=== PATIENT | female | born 1965 | race Caucasian/White ===

== ENCOUNTER 2021-06-21 11:15 | Outpatient (RCR) | payer MEDICARE, SELFPAY ==
[2021-06-02 15:32] VITALS: BMI 33.5
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
--- NOTE | 2021-06-03 14:13 | PC.NURSE ---
Case opened in treatment team
--- NOTE | 2021-06-07 11:25 | HO.PHPPROGNO ---
Subjective Subjective Date of Service: 06/07/21 Reason For Visit: F33.2 Guardianship: No Medical Problems Affecting Mental Status: No Interim History: Continues feeling cloudy . Says depression still present but is a little better . Denies any SI, no safety concern. Wants TMS 'right away . Medication Compliance: Yes Side effects from medications: No Attending Groups: Yes Review of Systems Acute medical concerns: No Medical Review of Systems: unchanged Review of Systems Review of Systems Yes all other systems are reviewed and are negative Constitutional: Reports no additional constitutional complaints Mental Status Exam Mental Status Exam Narrative: Well dressed, well nourished. No tics/tremors, no abnormal movements. Fully attentive during encounter. Continues with concrete, clouded sensorium, which she has attributed to post Covid symptoms. Patient Appearance: Appropriate Patient Orientation: Person, Place, Time and Situation Level of Consciousness: Awake and Appropriate Patient Behavior: Cooperative Mood Description: Depressed Affect Description: Depressed and Anxious Patient Cognition Impaired: No Ability to Follow Directions: Good Speech Pattern: Clear and Appropriate Memory Description: Intact Hallucinations: None Delusions: Not Present Thought Process: Intact Thought Content: positive for [place] and positive for Slowed Thinking (describes as cloudy .) Depressive Symptoms: Increased Anxiety, Diff. Making Decisions, Loss of Int. in Activity, Isolating-Friends/Family, Unhappiness and Difficulty Concentrating Judgement: Fair Diagnostics Vital Signs (24Hr): BMI result Body Mass Index 33.5 Assessment & Plan Assessment & Plan (1) Major depressive disorder, recurrent severe without psychotic features: Status: Acute Code(s): F33.2 - Major depressive disorder, recurrent severe without psychotic features Assessment and Plan: Clients continues with depressed, anxious mood. Reports that she feels she has had some improvement with depression symptoms, although it is still present. Denies SI. Discussed changing effexor from am to evening. She was agreeable. Discussed adding provigil. She was not interested in adding the medication at this time. She says she has several medical appointments upcoming, including a biopsy result (cervical), and a CT scan of her abdomen, due to digestive issues. She would prefer to wait until after these are complete prior to adding provigil, or making any other medication changes, including dose changes. She reports that she would like to begin TMS soon. We discussed a plan for any increased depression as she awaits start of TMS. If she begins to develop worsening depression / SI, she agrees to call crisis / come to [facility], for possible admit and posible ECT. She understands and agrees to this plan. (2) DIGNA (generalized anxiety disorder): Status: Acute Code(s): F41.1 - Generalized anxiety disorder Plan 1. Follow PHP plan of care. 2. Switch effexor from am to evening dose. 3. Follow-up as per protocol. Patient educated on: diagnosis, medication risk/benefits, ECT and TMS Informed Consent: understands Reason for contiued partial hosp. stay Substantial Risk for: harm to self, inability to function and med/psych decompensation Certification I certify that partial hospital treatment is medically necessary due to the symptoms and problems resulting from the patient's mental illness and the failure to treat the patient at the partial hospital level of care would likely result in the patient requiring inpatient psychiatric care which could not be prevented at a less intensive level of care. I spent minutes with the patient and/or on the patient floor today, greater than?50% of which was spent counseling/coordinating care. Discharge Plan Discharge Attending provider: Laith Valdes Primary Care Provider: Jaun Eason Medications: No Action carvedilol 6.25 mg Tablet 6.25 mg PO BID 0RF Rx Instructions: must administer with a meal/food venlafaxine [Effexor XR] 150 mg Capsule,Extended Release 24hr 150 mg PO DAILY 0RF spironolactone 25 mg Tablet 25 mg PO DAILY 0RF digoxin 125 mcg (0.125 mg) Tablet 125 mcg PO DAILY 0RF cholecalciferol (vitamin D3) [Vitamin D3] 50 mcg (2,000 unit) Capsule 50 mcg PO DAILY 0RF Entresto 49-51 mg Tablet 1 tab PO BID 0RF aspirin 81 mg Capsule 81 mg PO DAILY 0RF Referrals: Jaun Eason DO, MD [Primary Care Provider] - 1 Week Telehealth Telehealth Location of provider rendering services: practice address Location of patient: address on file Patient Identification confirmed using: Name, : Yes Telehealth method: video Patient verbally consented to treatment: Yes Patient verbally consented to billing insurance company: Yes Patient informed of any privacy concerns related to visit: Yes Time spent with patient (mins): 15
--- NOTE | 2021-06-07 14:15 | PC.NURSE ---
I spoke to Walt who stated she will not be in the program tomorrow as she has an appointment with her doctor to go over test results. Plans on returning to the program on Monday.
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
--- NOTE | 2021-06-21 14:20 | PC.NURSE ---
Notified Jolene from [facility] regarding Walt's discharge from the [facility] program to coordinate possible TMS treatment with patient.
--- NOTE | 2021-06-21 14:27 | PC.NURSE ---
Patient scheduled to discharge from the program today. Denied SI or thoughts to harm herself. Feels ok about discharge . Reviewed patient medications with patient, patient reports taking them as prescribed.
--- NOTE | 2021-06-21 14:32 | HO.PHPPROGNO ---
Subjective Subjective Date of Service: 06/21/21 Reason For Visit: F33.2 Guardianship: No Medical Problems Affecting Mental Status: No Interim History: Reports symptoms of depression are lessening, feels overall improved. No SI, no safety concern. Reports feeling sad about leaving program, as she is finding PHP very helpful. Looking forward to meeting with a [facility] clinic. Medication Compliance: Yes Side effects from medications: No Attending Groups: Yes Review of Systems Acute medical concerns: No Medical Review of Systems: unchanged Review of Systems Review of Systems Yes all other systems are reviewed and are negative Constitutional: Reports no additional constitutional complaints Mental Status Exam Mental Status Exam Patient Appearance: Well Grooomed and Appropriate Patient Orientation: Person, Place, Time and Situation Level of Consciousness: Awake, Appropriate and Alert Patient Behavior: Appropriate, Cooperative and Good Eye Contact Mood Description: Appropriate, Depressed and Anxious Affect Description: Appropriate and Anxious Patient Cognition Impaired: No Ability to Follow Directions: Good Speech Pattern: Clear, Appropriate and Coherent Memory Description: Normal for Patient Hallucinations: None Delusions: Not Present Thought Process: Rumination (focused on GI health and upcoming endoscopy and CT ) Thought Content: positive for Intact (grossly intact), positive for [place] and positive for Perseveration Depressive Symptoms: Increased Anxiety and Diff. Making Decisions Judgement: Good Diagnostics Vital Signs (24Hr): BMI result Body Mass Index 33.5 Assessment & Plan Assessment & Plan (1) DIGNA (generalized anxiety disorder): Status: Acute Code(s): F41.1 - Generalized anxiety disorder Assessment and Plan: Client reports overall improvement with depressive symptoms. Questions whether not she should continue with antidepressant at current dose. Discussed medication, this provider recommended she continue with medication as she appears to have lessened depressive symptoms because of this. Continues with some anxiety regarding upcoming GI testing including a CT scan and endoscopy. Continues to ruminate on this topic. (2) Major depressive disorder, recurrent severe without psychotic features: Status: Acute Code(s): F33.2 - Major depressive disorder, recurrent severe without psychotic features Assessment and Plan: Overall reports less depressive symptoms. Denies any SI, no thought of harm to self or others. No safety concerns at this time. Reports she is waiting to hear from [facility] regarding TMS, as she would like to pursue this. She reports that overall the PHP program has been very helpful to her, and that she will miss it. Plan 1. Client appears stable for discharge from [facility] at this time. 2. Follow-up with outpatient providers going forward. 3. Client plans to follow up with providers here at [facility] regarding TMS, as she is interested in this. Patient educated on: diagnosis, medication risk/benefits, TMS and therapeutic strategies Reason for contiued partial hosp. stay Substantial Risk for: stable for discharge Certification I certify that partial hospital treatment is medically necessary due to the symptoms and problems resulting from the patient's mental illness and the failure to treat the patient at the partial hospital level of care would likely result in the patient requiring inpatient psychiatric care which could not be prevented at a less intensive level of care. I spent __20____ minutes with the patient and/or on the patient floor today, greater than?50% of which was spent counseling/coordinating care. Discharge Plan Discharge Attending provider: Laith Valdes Primary Care Provider: Jaun Eason Medications: No Action carvedilol 6.25 mg Tablet 6.25 mg PO BID 0RF Rx Instructions: must administer with a meal/food venlafaxine [Effexor XR] 150 mg Capsule,Extended Release 24hr 150 mg PO DAILY 0RF spironolactone 25 mg Tablet 25 mg PO DAILY 0RF digoxin 125 mcg (0.125 mg) Tablet 125 mcg PO DAILY 0RF cholecalciferol (vitamin D3) [Vitamin D3] 50 mcg (2,000 unit) Capsule 50 mcg PO DAILY 0RF Entresto 49-51 mg Tablet 1 tab PO BID 0RF aspirin 81 mg Capsule 81 mg PO DAILY 0RF Referrals: Jaun Eason DO, MD [Primary Care Provider] - 1 Week Stand Alone Forms: Patient Portal Discharge page Telehealth Telehealth Location of provider rendering services: practice address Location of patient: address on file Patient Identification confirmed using: Name, : Yes Telehealth method: video Patient verbally consented to treatment: Yes Patient verbally consented to billing insurance company: Yes Patient informed of any privacy concerns related to visit: Yes Time spent with patient (mins): 20
== END 2021-06-21 23:59 | disposition home or self-care (01) ==
LOC: HO.PHPA 11:15
PROVIDERS: PCP Internal Medicine; Referring Provider Psychiatry & Neurology Psychiatry; Visit Provider Psychiatry & Neurology Psychiatry
DX: F33.2 Major depressive disorder, recurrent severe without psychotic features (principal); F41.1 Generalized anxiety disorder; Z79.899 Other long term (current) drug therapy
CPT/HCPCS: 90791; 90853

== ENCOUNTER → 2022-10-03 17:16 | Outpatient (RCR) | payer MEDICARE, SELFPAY ==
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
--- NOTE | 2021-06-30 16:45 | HO.TMSDAILY2 ---
TMS Daily Progress Note Daily TMS Progress Note Date of Service: 06/30/21 Week #: 1 (day one. mapping.) Treatment #(05-23): #1 PHQ-9 Pre-Treatment (05-20): unknown PHQ-9 Most Recent (05-20): unknown Reviewed: TMS Mapping/Re-mapping completed Verification: pt remains a candidate for this treatment Assessment and Plan (1) Major depressive disorder, recurrent severe without psychotic features: Status: Acute pt was calm and cooperative throughout the session. she recited her medications and no contraindications were noted. she denied having any metal in her head/neck area. she did not express any safety concerns. she appeared to tolerate the procedure adequately and plans to return tomorrow. Plan mapping and treatment #1 completed today. no notable adverse events aside from minor discomfort during pulse trains, which appeared to attenuate with time.
--- NOTE | 2021-06-30 21:33 | HO.TMSDAILY2 ---
TMS Daily Progress Note Daily TMS Progress Note Date of Service: 06/30/21 Week #: 1 Treatment #(05-23): #1 PHQ-9 Pre-Treatment (05-20): unknown PHQ-9 Most Recent (05-20): unknown Reviewed: TMS Tech Note Reviewed Verification: I have reviewed the TMS Outside Residential Sales Professional Note and agree with the contents. The patient remains a candidate to continue TMS treatment per protocol. Assessment and Plan (1) Major depressive disorder, recurrent severe without psychotic features: Status: Acute Plan initial mapping completed
--- NOTE | 2021-07-02 17:22 | P.PNPS_ITS ---
TMS Daily Progress Note Daily TMS Progress Note Date of Service: 07/01/21 Week #: 1 Treatment #(05-23): 2 PHQ-9 Pre-Treatment (05-20): 21 PHQ-9 Most Recent (05-20): 21 Reviewed: TMS Tech Note Reviewed Verification: I have reviewed the TMS Workers Compensation Claims Analyst Note and agree with the contents. The patient remains a candidate to continue TMS treatment per protocol. Pt hopeful regarding tx Assessment and Plan (1) Major depressive disorder, recurrent severe without psychotic features: Status: Acute Plan continue tx plan inc mt% as tolerated
--- NOTE | 2021-07-02 21:55 | HO.TMSDAILY2 ---
TMS Daily Progress Note Daily TMS Progress Note Date of Service: 07/02/21 Week #: 1 Treatment #(05-23): 3 PHQ-9 Pre-Treatment (05-20): 21 PHQ-9 Most Recent (05-20): 21 Reviewed: TMS Tech Note Reviewed Verification: I have reviewed the TMS Melter Supervisor Oxygen Furnace Note and agree with the contents. The patient remains a candidate to continue TMS treatment per protocol. Assessment and Plan (1) Major depressive disorder, recurrent severe without psychotic features: Status: Acute Plan tolerating initial tx
--- NOTE | 2021-07-05 21:58 | HO.TMSDAILY2 ---
TMS Daily Progress Note Daily TMS Progress Note Date of Service: 07/05/21 Week #: 1 Treatment #(05-23): 4 PHQ-9 Pre-Treatment (05-20): 21 PHQ-9 Most Recent (05-20): 21 Reviewed: TMS Tech Note Reviewed Verification: I have reviewed the TMS Battery Test Engineer Note and agree with the contents. The patient remains a candidate to continue TMS treatment per protocol. Assessment and Plan (1) Major depressive disorder, recurrent severe without psychotic features: Status: Acute Plan some ? elevated mood will review follow monitor
--- NOTE | 2021-07-06 17:55 | P.PNPS_ITS ---
TMS Daily Progress Note Daily TMS Progress Note Date of Service: 07/06/21 Week #: 1 Treatment #(05-23): 5 PHQ-9 Pre-Treatment (05-20): 21 PHQ-9 Most Recent (05-20): 21 Reviewed: TMS Tech Note Reviewed Verification: I have reviewed the TMS Quality Systems Technician Note and agree with the contents. The patient remains a candidate to continue TMS treatment per protocol. Assessment and Plan (1) Major depressive disorder, recurrent severe without psychotic features: Status: Acute Plan Patient seems improving more verbal choi affect monitor for overstimulation
--- NOTE | 2021-07-07 10:57 | P.PNPS_ITS ---
TMS Daily Progress Note Daily TMS Progress Note Date of Service: 07/08/21 Week #: 2 Treatment #(05-23): 6 PHQ-9 Pre-Treatment (05-20): 21 PHQ-9 Most Recent (05-20): 21 Reviewed: TMS Tech Note Reviewed Verification: I have reviewed the TMS Mineral Industry Teacher Note and agree with the contents. The patient remains a candidate to continue TMS treatment per protocol.
--- NOTE | 2021-07-08 22:48 | HO.TMSDAILY2 ---
TMS Daily Progress Note Daily TMS Progress Note Date of Service: 07/08/21 Week #: 2 Treatment #(05-23): 7 PHQ-9 Pre-Treatment (05-20): 21 PHQ-9 Most Recent (05-20): 21 Reviewed: TMS Tech Note Reviewed Verification: I have reviewed the TMS Railway Equipment Operator Note and agree with the contents. The patient remains a candidate to continue TMS treatment per protocol.
--- NOTE | 2021-07-09 20:15 | HO.TMSDAILY2 ---
TMS Daily Progress Note Daily TMS Progress Note Date of Service: 07/09/21 Week #: 2 Treatment #(05-23): 8 PHQ-9 Pre-Treatment (05-20): 21 PHQ-9 Most Recent (05-20): 21 Reviewed: TMS Tech Note Reviewed Verification: I have reviewed the TMS Livestock Dealer Note and agree with the contents. The patient remains a candidate to continue TMS treatment per protocol. Assessment and Plan (1) Major depressive disorder, recurrent severe without psychotic features: Status: Acute Plan pt improved continue plan of care
--- NOTE | 2021-07-12 21:56 | P.PNPS_ITS ---
TMS Daily Progress Note Daily TMS Progress Note Date of Service: 07/12/21 Week #: 2 Treatment #(05-23): 9 PHQ-9 Pre-Treatment (05-20): 21 PHQ-9 Most Recent (05-20): 21 Reviewed: TMS Tech Note Reviewed Verification: I have reviewed the TMS Production Support Developer Note and agree with the contents. The patient remains a candidate to continue TMS treatment per protocol.
--- NOTE | 2021-07-15 18:04 | HO.TMSDAILY2 ---
TMS Daily Progress Note Daily TMS Progress Note Date of Service: 07/14/21 Week #: 3 Treatment #(05-23): 11 PHQ-9 Pre-Treatment (05-20): 21 PHQ-9 Most Recent (05-20): 21 Reviewed: TMS Tech Note Reviewed Verification: I have reviewed the TMS Veneer Splicer Note and agree with the contents. The patient remains a candidate to continue TMS treatment per protocol.
--- NOTE | 2021-07-15 20:02 | P.PNPS_ITS ---
TMS Daily Progress Note Daily TMS Progress Note Date of Service: 07/13/21 Week #: 2 Treatment #(05-23): 10 PHQ-9 Pre-Treatment (05-20): 21 PHQ-9 Most Recent (05-20): 21 Reviewed: TMS Tech Note Reviewed Verification: I have reviewed the TMS Manager Technical Training Note and agree with the contents. The patient remains a candidate to continue TMS treatment per protocol. case reviewed with tech ? choi affect
--- NOTE | 2021-07-20 20:06 | P.PNPS_ITS ---
TMS Daily Progress Note Daily TMS Progress Note Date of Service: 07/19/21 Week #: 3 Treatment #(05-23): 12 PHQ-9 Pre-Treatment (05-20): 21 PHQ-9 Most Recent (05-20): 21 Reviewed: TMS Tech Note Reviewed (late entry 07/19/21) Verification: I have reviewed the TMS Mental Health Counselor Note and agree with the contents. The patient remains a candidate to continue TMS treatment per protocol.
--- NOTE | 2021-07-21 09:03 | P.PNPS_ITS ---
TMS Daily Progress Note Daily TMS Progress Note Date of Service: 07/20/21 Week #: 3 Treatment #(05-23): 13 PHQ-9 Pre-Treatment (05-20): 21 PHQ-9 Most Recent (05-20): 21 Reviewed: TMS Tech Note Reviewed Verification: I have reviewed the TMS Steam Shovel Operating Engineer Note and agree with the contents. The patient remains a candidate to continue TMS treatment per protocol. Assessment and Plan (1) Major depressive disorder, recurrent severe without psychotic features: Status: Acute Plan pt improved has akathesia pt seen much choi affect mood pleasant some anxiety sleep good akathesia most c/w effexor [address] lucas office they will lower effexor to 75 mg does not seem tms s/e or andrew
--- NOTE | 2021-07-23 15:56 | HO.TMSDAILY2 ---
TMS Daily Progress Note Daily TMS Progress Note Date of Service: 07/22/21 Week #: 3 (15) Treatment #(05-23): 15 PHQ-9 Pre-Treatment (05-20): 21 PHQ-9 Most Recent (05-20): 21 Reviewed: TMS Tech Note Reviewed Verification: I have reviewed the TMS Harness Fitter Note and agree with the contents. The patient remains a candidate to continue TMS treatment per protocol. Assessment and Plan (1) Major depressive disorder, recurrent severe without psychotic features: Status: Acute Plan spoke with daughter who stated pt did best on 150 referred back to her psych she will see shortly
--- NOTE | 2021-07-23 16:03 | P.PNPS_ITS ---
TMS Daily Progress Note Daily TMS Progress Note Date of Service: 07/23/21 Week #: 4 Treatment #(05-23): 16 PHQ-9 Pre-Treatment (05-20): 21 PHQ-9 Most Recent (05-20): 11 Reviewed: TMS Tech Note Reviewed Verification: I have reviewed the TMS Motion Picture Director Note and agree with the contents. The patient remains a candidate to continue TMS treatment per protocol. Assessment and Plan (1) Major depressive disorder, recurrent severe without psychotic features: Status: Acute Plan monitor for akathesia pt has shown significant improvement
--- NOTE | 2021-07-26 10:06 | P.PNPS_ITS ---
TMS Daily Progress Note Daily TMS Progress Note Date of Service: 07/26/21 Week #: 4 Treatment #(05-23): 18 PHQ-9 Pre-Treatment (05-20): 21 PHQ-9 Most Recent (05-20): 11 Reviewed: TMS Tech Note Reviewed Verification: I have reviewed the TMS Rooms Director Note and agree with the contents. The patient remains a candidate to continue TMS treatment per protocol. Assessment and Plan (1) Major depressive disorder, recurrent severe without psychotic features: Status: Acute Plan Patient with much choi range of affect feels significantly better
--- NOTE | 2021-07-27 13:23 | HO.TMSDAILY2 ---
TMS Daily Progress Note Daily TMS Progress Note Date of Service: 07/27/21 Week #: 4 Treatment #(05-23): 19 PHQ-9 Pre-Treatment (05-20): 21 PHQ-9 Most Recent (05-20): 11 Reviewed: TMS Tech Note Reviewed Verification: I have reviewed the TMS Mail List Processor Note and agree with the contents. The patient remains a candidate to continue TMS treatment per protocol.
--- NOTE | 2021-07-28 23:14 | P.PNPS_ITS ---
TMS Daily Progress Note Daily TMS Progress Note Date of Service: 07/27/21 Week #: 5 Treatment #(05-23): 20 PHQ-9 Pre-Treatment (05-20): 21 PHQ-9 Most Recent (05-20): 11 Reviewed: TMS Tech Note Reviewed Verification: I have reviewed the TMS Armored Machine Operator Note and agree with the contents. The patient remains a candidate to continue TMS treatment per protocol.
--- NOTE | 2021-07-28 23:16 | P.PNPS_ITS ---
TMS Daily Progress Note Daily TMS Progress Note Date of Service: 07/27/21 Week #: 4 Treatment #(05-23): 21 PHQ-9 Pre-Treatment (05-20): 21 PHQ-9 Most Recent (05-20): 11 Reviewed: TMS Tech Note Reviewed Verification: I have reviewed the TMS Electrician Refinery Note and agree with the contents. The patient remains a candidate to continue TMS treatment per protocol.
--- NOTE | 2021-07-28 23:25 | HO.TMSDAILY2 ---
TMS Daily Progress Note Daily TMS Progress Note Date of Service: 07/28/21 Week #: 4 Treatment #(05-23): 23 PHQ-9 Pre-Treatment (05-20): 21 PHQ-9 Most Recent (05-20): 11 Reviewed: TMS Tech Note Reviewed Verification: I have reviewed the TMS Resource Manager Forester Note and agree with the contents. The patient remains a candidate to continue TMS treatment per protocol.
--- NOTE | 2021-07-29 20:20 | P.PNPS_ITS ---
TMS Daily Progress Note Daily TMS Progress Note Date of Service: 07/29/21 Week #: 5 Treatment #(05-23): 21 PHQ-9 Pre-Treatment (05-20): 21 PHQ-9 Most Recent (05-20): 11 Reviewed: TMS Tech Note Reviewed Verification: I have reviewed the TMS Community Facilitator Note and agree with the contents. The patient remains a candidate to continue TMS treatment per protocol.
--- NOTE | 2021-08-02 17:18 | HO.TMSDAILY2 ---
TMS Daily Progress Note Daily TMS Progress Note Date of Service: 08/02/21 Week #: 5 Treatment #(05-23): 22 PHQ-9 Pre-Treatment (05-20): 21 PHQ-9 Most Recent (05-20): 11 Reviewed: TMS Tech Note Reviewed Verification: I have reviewed the TMS Chemical Operations And Training Note and agree with the contents. The patient remains a candidate to continue TMS treatment per protocol.
--- NOTE | 2021-08-03 21:44 | P.PNPS_ITS ---
TMS Daily Progress Note Daily TMS Progress Note Date of Service: 08/03/21 Week #: 5 Treatment #(05-23): 23 PHQ-9 Pre-Treatment (05-20): 21 PHQ-9 Most Recent (05-20): 11 Reviewed: TMS Tech Note Reviewed Verification: I have reviewed the TMS Condenser Setter Note and agree with the contents. The patient remains a candidate to continue TMS treatment per protocol.
--- NOTE | 2021-08-04 22:53 | HO.TMSDAILY2 ---
TMS Daily Progress Note Daily TMS Progress Note Date of Service: 08/04/21 Week #: 5 Treatment #(05-23): 24 PHQ-9 Pre-Treatment (05-20): 21 PHQ-9 Most Recent (05-20): 11 Reviewed: TMS Tech Note Reviewed Verification: I have reviewed the TMS Project Management Advisor Note and agree with the contents. The patient remains a candidate to continue TMS treatment per protocol.
--- NOTE | 2021-08-10 22:11 | HO.TMSDAILY2 ---
TMS Daily Progress Note Daily TMS Progress Note Date of Service: 08/10/21 Week #: 6 Treatment #(05-23): 27 PHQ-9 Pre-Treatment (05-20): 21 PHQ-9 Most Recent (05-20): 11 Reviewed: TMS Tech Note Reviewed Verification: I have reviewed the TMS Director Of Government Sales Note and agree with the contents. The patient remains a candidate to continue TMS treatment per protocol.
--- NOTE | 2021-08-12 21:23 | HO.TMSDAILY2 ---
TMS Daily Progress Note Daily TMS Progress Note Date of Service: 08/12/21 Week #: 6 Treatment #(05-23): 28 PHQ-9 Pre-Treatment (05-20): 21 PHQ-9 Most Recent (05-20): 11 Reviewed: TMS Tech Note Reviewed Verification: I have reviewed the TMS Sorting And Folding Supervisor Note and agree with the contents. The patient remains a candidate to continue TMS treatment per protocol. Assessment and Plan (1) Major depressive disorder, recurrent severe without psychotic features: Status: Acute Plan Patient with much choi range of affect feels significantly better will change to 2 x week taper
--- NOTE | 2021-08-16 20:34 | P.PNPS_ITS ---
TMS Daily Progress Note Daily TMS Progress Note Date of Service: 08/16/21 Week #: 6 Treatment #(05-23): 29 PHQ-9 Pre-Treatment (05-20): 21 PHQ-9 Most Recent (05-20): 11 Reviewed: TMS Tech Note Reviewed Verification: I have reviewed the TMS Salesperson Women'S Dresses Note and agree with the contents. The patient remains a candidate to continue TMS treatment per protocol. Assessment and Plan (1) Major depressive disorder, recurrent severe without psychotic features: Status: Acute Plan Patient with much choi range of affect feels significantly better will change to 2 x week taper
--- NOTE | 2021-08-19 13:42 | P.PNPS_ITS ---
TMS Daily Progress Note Daily TMS Progress Note Date of Service: 08/19/21 Week #: 6 Treatment #(05-23): 30 PHQ-9 Pre-Treatment (05-20): 21 PHQ-9 Most Recent (05-20): 11 Reviewed: TMS Tech Note Reviewed Verification: I have reviewed the TMS Bundler Seasonal Greenery Note and agree with the contents. The patient remains a candidate to continue TMS treatment per protocol.
--- NOTE | 2021-08-23 22:24 | HO.TMSDAILY2 ---
TMS Daily Progress Note Daily TMS Progress Note Date of Service: 08/23/21 Week #: 6 Treatment #(05-23): 31 PHQ-9 Pre-Treatment (05-20): 21 PHQ-9 Most Recent (05-20): 11 Reviewed: TMS Tech Note Reviewed Verification: I have reviewed the TMS Mortgage Protection Specialist Note and agree with the contents. The patient remains a candidate to continue TMS treatment per protocol.
--- NOTE | 2021-08-24 15:07 | P.PNPS_ITS ---
TMS Daily Progress Note Daily TMS Progress Note Date of Service: 08/24/21 Week #: 5 (25) Treatment #(05-23): 31 PHQ-9 Pre-Treatment (05-20): 21 PHQ-9 Most Recent (05-20): 11 Reviewed: TMS Tech Note Reviewed Verification: I have reviewed the TMS Director Payer Note and agree with the contents. The patient remains a candidate to continue TMS treatment per protocol.
--- NOTE | 2021-08-24 15:09 | P.PNPS_ITS ---
TMS Daily Progress Note Daily TMS Progress Note Date of Service: 08/06/21 Week #: 6 (26) Treatment #(05-23): 31 PHQ-9 Pre-Treatment (05-20): 21 PHQ-9 Most Recent (05-20): 11 Reviewed: TMS Tech Note Reviewed Verification: I have reviewed the TMS Industrial Maintenance Millwright Note and agree with the contents. The patient remains a candidate to continue TMS treatment per protocol.
--- NOTE | 2021-08-26 23:59 | P.PNPS_ITS ---
TMS Daily Progress Note Daily TMS Progress Note Date of Service: 08/26/21 Week #: 7 Treatment #(05-23): 32 PHQ-9 Pre-Treatment (05-20): 21 PHQ-9 Most Recent (05-20): 11 Reviewed: TMS Tech Note Reviewed Verification: I have reviewed the TMS Infrastructure Software Engineer Note and agree with the contents. The patient remains a candidate to continue TMS treatment per protocol.
--- NOTE | 2021-08-30 22:23 | P.PNPS_ITS ---
TMS Daily Progress Note Daily TMS Progress Note Date of Service: 08/30/21 Week #: 8 Treatment #(05-23): 33 PHQ-9 Pre-Treatment (05-20): 21 PHQ-9 Most Recent (05-20): 11 Reviewed: TMS Tech Note Reviewed Verification: I have reviewed the TMS Scrap Preparer Note and agree with the contents. The patient remains a candidate to continue TMS treatment per protocol.
--- NOTE | 2021-09-02 22:27 | HO.TMSDAILY2 ---
TMS Daily Progress Note Daily TMS Progress Note Date of Service: 09/02/21 Week #: 8 Treatment #(05-23): 34 PHQ-9 Pre-Treatment (05-20): 21 PHQ-9 Most Recent (05-20): 11 Reviewed: TMS Tech Note Reviewed Verification: I have reviewed the TMS Nurse Infection Control Note and agree with the contents. The patient remains a candidate to continue TMS treatment per protocol.
--- NOTE | 2021-09-07 22:32 | HO.TMSDAILY2 ---
TMS Daily Progress Note Daily TMS Progress Note Date of Service: 09/07/21 Week #: 8 Treatment #(05-23): 35 PHQ-9 Pre-Treatment (05-20): 21 PHQ-9 Most Recent (05-20): 11 Reviewed: TMS Tech Note Reviewed Verification: I have reviewed the TMS Director Of Education And Training Note and agree with the contents. The patient remains a candidate to continue TMS treatment per protocol.
--- NOTE | 2021-09-09 23:37 | P.PNPS_ITS ---
TMS Daily Progress Note Daily TMS Progress Note Date of Service: 09/09/21 Week #: 8 Treatment #(05-23): 36 PHQ-9 Pre-Treatment (05-20): 21 PHQ-9 Most Recent (05-20): 11 Reviewed: TMS Tech Note Reviewed Verification: I have reviewed the TMS Jewel Hole Finish Opener Note and agree with the contents. The patient remains a candidate to continue TMS treatment per protocol. Assessment and Plan (1) Major depressive disorder, recurrent severe without psychotic features: Status: Acute Plan pt has shown marked improvement last tx completed can retreat if [t shows relapse
== END | disposition home or self-care (01) ==
LOC: HO.PTMS 06-30 13:00
PROVIDERS: Visit Provider Psychiatry & Neurology Psychiatry
DX: F33.2 Major depressive disorder, recurrent severe without psychotic features (principal); F41.1 Generalized anxiety disorder; F10.11 Alcohol abuse, in remission
CPT/HCPCS: 90868

== ENCOUNTER 2023-01-09 20:11 | Emergency (ER) | payer MEDICARE, SELFPAY ==
--- NOTE | ~2023-01-09 | XR_ITS ---
EXAMINATION: XR CHEST CLINICAL INFORMATION: Cough. COMPARISON: None available. TECHNIQUE: 2 views of the chest were obtained. FINDINGS: No significant abnormality is noted involving the heart, lungs, mediastinum, bony thorax or soft tissues. XR/XR chest 2V IMPRESSION: Unremarkable chest examination.
--- NOTE | 2023-01-09 20:15 | ECG_ITS ---
Test Reason : sob Blood Pressure : / mmHG Vent. Rate : 090 BPM Atrial Rate : 090 BPM P-R Int : 186 ms QRS Dur : 102 ms QT Int : 384 ms P-R-T Axes : 032 019 -04 degrees QTc Int : 469 ms Normal sinus rhythm Voltage criteria for left ventricular hypertrophy ( R in aVL , Sokolow-Hu , Viola product ) Nonspecific T wave abnormality Abnormal ECG No previous ECGs available Referred By: Generic ED Physician Electronically Signed By:GERMAN FISH
[2023-01-09 20:24] VITALS: BP 124/62; PULSE 79; RESP 14; TEMP 36.9; O2SAT 98; BMI 35.8
--- NOTE | 2023-01-09 20:24 | ED_ITS ---
[facility] - General Adult General Chief complaint: Upper Respiratory Symptoms Stated complaint: Difficulty breathing, CHF Time Seen by Provider: 01/09/23 21:07 Source: patient Mode of arrival: ambulatory History of Present Illness [facility] narrative: 57-year-old female with history and clinical presentation for difficulty breathing and losing her voice denies any fevers or chills, denies any new cough, denies any changes in medications or new medications but states that she woke up this morning with sore throat and ear pain. Otherwise, she denies any GI or symptoms. Related Data Home Medications Medication Instructions Recorded Confirmed aspirin 81 mg capsule 81 mg PO DAILY 06/02/21 06/02/21 carvedilol 6.25 mg tablet 6.25 mg PO BID 06/02/21 06/02/21 cholecalciferol (vitamin D3) 50 50 mcg PO DAILY 06/02/21 06/02/21 mcg (2,000 unit) capsule (Vitamin D3) digoxin 125 mcg (0.125 mg) tablet 125 mcg PO DAILY 06/02/21 06/02/21 sacubitril 49 mg-valsartan 51 mg 1 tab PO BID 06/02/21 06/02/21 tablet (Entresto) spironolactone 25 mg tablet 25 mg PO DAILY 06/02/21 06/02/21 venlafaxine 150 mg 150 mg PO DAILY 06/02/21 06/02/21 capsule,extended release 24 hr (Effexor XR) Allergies Allergy/AdvReac Type Severity Reaction Status Date / Time No Known Allergies Allergy Verified 06/02/21 15:32 Review of Systems 2 Review of Systems: Pertinent positives and negatives as stated in [facility] Past Medical History Source: nursing notes reviewed Medical History (Updated 01/09/23 @ 23:14 by Bozena Valdez MD) Cardiomyopathy Sleep apnea GERD (gastroesophageal reflux disease) Hearing impaired Major depressive disorder, recurrent severe without psychotic features MDD (major depressive disorder), recurrent episode, moderate Essential tremor Congestive heart failure (CHF) Brain injury Social History Social History Household Members: Family Household Members Other:: N/A Alcohol intake: current Alcohol intake frequency: a few times a month Alcohol type: wine Patient Tobacco Use Status: Never used Tobacco Smoked in Last 30 Days: Yes Use of substances other than those prescribed or required for medical reasons: No Advance Directives: No Advance Directives Information Provided: No Patient : No Physical Exam ED Vital Signs: Vital Signs - 24 hr 01/09/23 20:24 01/09/23 22:29 01/09/23 22:30 Temperature 98.4 F 98.0 F Pulse Rate 79 68 Respiratory Rate 14 20 Blood Pressure 124/62 124/45 L Pulse Oximetry 98 98 96 Oxygen Delivery Method Room Air Room Air Room Air BMI result Body Mass Index 35.8 VITAL SIGNS: Reviewed. GENERAL: Elevated BMI, Well developed, well nourished, in no acute distress. HEAD: Normocephalic/atraumatic EYES: PERRLA, EOMI EARS: Ext canals without abnormality, TMs non-bulging and non-erythematous..... There are several foreign bodies noted within the right external canal there is no surrounding erythema/induration or purulence drainage NOSE: Nares patent bilateral OROPHARYNX: no oral lesions noted, posterior pharynx clear and non-erythematous without noted tonsillar enlargement/erythema/exudates NECK: Supple, no adenopathy LUNGS: Normal breath sounds, no stridor/wheeze/rhonchi/rales. No adventitious sounds or accessory muscle use. SpO2<98> CARDIOVASCULAR: Regular rate and rhythm without noted murmurs, no JVD or lower extremity edema. ABDOMEN: Soft, non-tender, non-distended with bowel sounds. MUSCULOSKELETAL: No tenderness, deformities, or effusions noted on gross inspection. EXTREMITIES: No cyanosis, clubbing or edema. SKIN: Inspection of the skin reveals no rashes NEUROLOGIC: Alert and oriented x 4. Strength and sensation to light touch were grossly intact x 4. Course Course Course Narrative: RME - 57 yo female with history of anxiety, depression, ETOH use, CHF who presents to the ER for evaluation of sore throat, right ear pain, decreased PO intake that started today. No SOB or chest pain. VSS in triage. Plan: labs, viral swabs Procedures Foreign Body Removal Time Out Performed: no Site: right and ear Description of foreign body: other (4 pieces of ? Hearing aid) Sedation/Analgesia: none Technique: removal with forceps and irrigation Confirmed by:: direct visualization Complications: none Post-procedure exam: awake, alert Medical Decision Making Medical Decision Making MDM Narrative: 57-year-old female with history and clinical presentation, DDX: Viral syndrome, lower clinical suspicion for CHF exacerbation or foreign body in the airway, laryngitis but again this would be most likely associated with a viral etiology, no history to suggest an angioedema as patient has been having ongoing symptoms since this morning. She is otherwise stable in appears well, will remove foreign bodies in right ear. I reviewed all investigations and hematologic indices demonstrate a normocytic anemia, no left shift there is a slight elevation and leukocytes and no thrombocytopenia. Patient is afebrile. Chemistry indices are grossly within normal limits without BOBBY and there is no electrolyte derangements, high sensitivity troponin is undetectable and BNP is 58. Clinically, patient does not appear to be in fluid overload. Viral testing for COVID-19 and influenza are negative, rapid strep is negative. Chest x-ray is without infiltrate or evidence of venous congestion otherwise my interpretation is in agreement with radiology's impression. Patient received Cepacol for symptomatic relief of throat discomfort but it is my impression that patient is likely developing laryngitis secondary to viral etiology. There were several hearing aid pieces that were manually removed with alligator forceps as well as with irrigation. Patient has remained hemodynamically stable, afebrile and will be discharged home. Differential Diagnosis Differential Diagnoses: The differential diagnosis associated with the presentation includes Please see the discussion above Admission/Observation Consideration of admission/observation: Escalation of care including admission/observation considered Please see the discussion above Lab Data MDM Lab Attestation statement: I reviewed the patient's lab results. Please see the discussion above 01/09/23 20:24 01/09/23 20:24 Labs: Lab Results 01/09/23 01/09/23 01/09/23 Range/Units 20:24 20:47 20:48 WBC 10.9 H (4.8-10.8) X10*3/uL RBC 3.99 L (4.20-5.50) X10*6/uL Hgb 11.6 L (12.0-16.0) g/dl Hct 36.2 L (37.0-47.0) % MCV 90.7 (80.0-98.0) fL MCH 29.1 (27.0-33.0) pg MCHC 32.0 (31.0-35.0) g/dl RDW 14.2 (11.0-16.0) % Plt Count 225 (160-400) X10*3/uL MPV 10.0 (9.4-12.3) fL Immature Gran % (Auto) 0.3 (0.0-0.4) % Neut % (Auto) 69.5 (45-73) % Lymph % (Auto) 19.3 L (20-40) % [place] % (Auto) 7.6 (2-11) % Eos % (Auto) 2.9 (0-4) % Baso % (Auto) 0.4 (0-2) % Lymph # (Auto) 2.1 (1.2-4.9) X10*3/uL [place] # (Auto) 0.8 (0.1-1.2) X10*3/uL Eos # (Auto) 0.3 (0.0-0.4) X10*3/uL Baso # (Auto) 0.0 (0.0-0.2) X10*3/uL Abs Immat Gran (auto) 0.03 (0.00-0.03) X10*3/uL Absolute Neuts (auto) 7.6 (2.0-8.3) x10*3/uL Absolute Nucleated RBC 0.000 (0.0-0.012) X10*3/uL Nucleated RBC % (auto) 0.0 (0.0-0.2) /100WBC Sodium 139 (135-145) mmol/L Potassium 3.6 (3.3-5.1) mmol/L Chloride 108 (96-108) mmol/L Carbon Dioxide 23 (22-29) mmol/L Anion Gap 12 (12-20) BUN 17 H (9-16) mg/dL Creatinine 0.76 (0.5-1.4) mg/dL Estim Creat Clear Calc 88.8 Estimated GFR > 60 Random Glucose 110 (60-115) mg/dL Calcium 9.0 (8.4-10.2) mg/dL Troponin I High Sens < 2.7 (<3.5-17.0) ng/L B-Natriuretic Peptide 58 (<100) pg/mL Influenza Type A (PCR) NEGATIVE (Negative) Influenza Type B (PCR) NEGATIVE (Negative) RSV RNA Qual (PCR) NEGATIVE (Negative) SARS-CoV-2 RNA (RT-PCR) NEGATIVE (Negative) S. pyogenes GrpA CHARLES Negative (Negative) Independent Interpretation I performed an independent interpretation of an: EKG Interpretation: Normal sinus rhythm, HR-90, no STEMI, IN/QRS/QTC is within normal limits. Radiology Impression Discussion of test interpretation with radiology: I have reviewed the radiologist's reading. Radiologist Impression: Please see the discussion above Chronic Conditions Patient?s care impacted by: Hypertension Discharge Plan Discharge Clinical Impression: Laryngitis, Viral syndrome Patient Disposition: Home, Self-Care Instructions: Laryngitis (ED), Viral Syndrome (ED) Additional Instructions: 1. Resume all home medications as prescribed. 2. Recommend [id number] Cepacol for relief of throat discomfort as well as Tylenol/ibuprofen for any throat pain. 3. Consider retesting for COVID-19 with home testing kit. 4. Follow-up with your primary care doctor in the next 1-2 days. Return to the ER for any worsening symptoms. Prescriptions: No Action carvedilol 6.25 mg Tablet 6.25 mg PO BID Rx Instructions: must administer with a meal/food venlafaxine [Effexor XR] 150 mg Capsule,Extended Release 24hr 150 mg PO DAILY spironolactone 25 mg Tablet 25 mg PO DAILY digoxin 125 mcg (0.125 mg) Tablet 125 mcg PO DAILY cholecalciferol (vitamin D3) [Vitamin D3] 50 mcg (2,000 unit) Capsule 50 mcg PO DAILY Entresto 49-51 mg Tablet 1 tab PO BID aspirin 81 mg Capsule 81 mg PO DAILY Referrals: Jaun Eason DO, MD [Primary Care Provider] -
[2023-01-09 20:29] LABS: MANUAL DIFF FLAG NO
[2023-01-09 20:34] LABS: Basophils Percent Auto 0.4 % (0-2); Eosinophils Absolute Auto 0.3 X10*3/uL (0.0-0.4); Eosinophils Percent Auto 2.9 % (0-4); Hematocrit 36.2 % (37.0-47.0); Hemoglobin 11.6 g/dl (12.0-16.0); Imm Gran Abs Auto 0.03 X10*3/uL (0.00-0.03); Imm Gran Pct Auto 0.3 % (0.0-0.4); Lymphocytes Absolute Auto 2.1 X10*3/uL (1.2-4.9); Lymphocytes Percent Auto 19.3 % (20-40); Mean Corpuscular Hemoglobin 29.1 pg (27.0-33.0); Mean Corpuscular Volume 90.7 fL (80.0-98.0); Monocytes Absolute Auto 0.8 X10*3/uL (0.1-1.2); Monocytes Percent Auto 7.6 % (2-11); Neutrophils Absolute Auto 7.6 x10*3/uL (2.0-8.3); Neutrophils Percent Auto 69.5 % (45-73); Platelet Count 225 X10*3/uL (160-400); Red Blood Count 3.99 X10*6/uL (4.20-5.50); Red Cell Distribution Width 14.2 % (11.0-16.0); White Blood Count 10.9 X10*3/uL (4.8-10.8)
[2023-01-09 20:45] LABS: Anion Gap 12 (12-20); Blood Urea Nitrogen 17 mg/dL (9-16); Carbon Dioxide 23 mmol/L (22-29); Chloride 108 mmol/L (96-108); Creatinine Clr Calc Pharmacy 88.8; Estimated Glomerular Filt Rate > 60; Glucose Random 110 mg/dL (60-115); Potassium 3.6 mmol/L (3.3-5.1); Sodium 139 mmol/L (135-145)
[2023-01-09 20:54] LABS: Troponin-I High Sensitivity < 2.7 ng/L (<3.5-17.0)
[2023-01-09 21:06] LABS: IDNOW Serial# 08D9AD1C; Strep A Nucleic Acid Negative (Negative)
[2023-01-09 21:30] LABS: Influenza A PCR NEGATIVE (Negative); Influenza B PCR NEGATIVE (Negative); Resp Syncy Virus RNA Qual PCR NEGATIVE (Negative); SARS COV2 PCR INHOUSE NEGATIVE (Negative)
[2023-01-09 22:28] LABS: B Type Natriuretic Peptide 58 pg/mL (<100)
[2023-01-09 22:29] VITALS: BP 124/45; PULSE 68; RESP 20; TEMP 36.7; O2SAT 98
[2023-01-09 22:30] VITALS: O2SAT 96
[2023-01-09] MEDS: Throat Lozenge, Medicated LOZENGE 1 LOZENGE MUCOUS MEM (23:24)
--- NOTE | 2023-01-09 23:52 | PC.NURSE ---
This RN completed ear lavage removing 4 small pieces of an old hearing aide as well as 2 chunks of hard ear wax. Pt had small amount of blood visualized in ear canal but no further wax or foreign objects. notified.
== END 2023-01-09 23:50 | disposition home or self-care (01) ==
PROVIDERS: Physician Assistant; Emergency Provider Student in an Organized Health Care Education/Training Program; PCP Internal Medicine
DX: J04.0 Acute laryngitis (principal); B34.9 Viral infection, unspecified; J02.9 Acute pharyngitis, unspecified; R06.02 Shortness of breath; R05.9 Cough, unspecified; R94.31 Abnormal electrocardiogram [ECG] [EKG]; Z20.822 Contact with and (suspected) exposure to COVID-19; Z20.828 Contact with and (suspected) exposure to other viral communicable diseases; Z79.899 Other long term (current) drug therapy
CPT/HCPCS: 0241U; 36415; 71046; 80048; 83880; 84484; 85025; 87651; 93005; 99284; 99285

== ENCOUNTER 2024-02-21 22:48 | Emergency (ER) | payer MEDICARE, SELFPAY ==
--- NOTE | ~2024-02-21 | XR_ITS ---
EXAMINATION: XR LUMBOSACRAL SPINE CLINICAL INFORMATION: Pain with movement and walking. COMPARISON: None available. TECHNIQUE: AP, lateral and coned lateral radiograph of the lumbar spine. 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 On this basis, 5 lumbar type vertebral bodies are identified in the sacral promontory is present at L5-S1. No vertebral body compression deformities are identified. T12-L1: Mild intervertebral disc space narrowing and prominent anterior endplate osteophytosis. L1-L2: Intervertebral disc space narrowing, vacuum phenomena and prominent anterior endplate osteophytosis. 2 mm degenerative type retrolisthesis. Normal intervertebral disc space narrowing is present at L2-L3, L3-L4 and L4-L5. L5-S1: Moderate intervertebral disc space narrowing and sclerotic endplate discogenic changes. Mild/moderate bilateral L5-S1 facet hypertrophic changes. Partial visualization is made of anterior bridging endplate osteophytosis at T9-T10 and T10-T11. XR/XR lumbar spine 2-3V IMPRESSION: *Moderate multilevel chronic spondylosis of the lumbar spine as detailed above. Findings include moderate intervertebral disc space narrowing and bilateral facet hypertrophic changes at L5-S1. 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 Vertebral body levels are enumerated with reference to this finding for the purposes of this examination. This finding could give rise to ambiguity in vertebral body level enumeration. An alternative numeration scheme would be to suggest there are 6 lumbar type vertebral bodies with lumbarization of the S1 vertebral body. Electronically signed by: Catracho Dougherty MD 02/22/2024 02:32 AM EDT
[2024-02-21 22:51] VITALS: BP 141/73; PULSE 71; RESP 18; TEMP 36.6; O2SAT 98; BMI 35.8
[2024-02-21 23:12] LABS: MANUAL DIFF FLAG NO
[2024-02-21 23:14] LABS: Basophils Percent Auto 0.4 % (0-2); Eosinophils Absolute Auto 0.2 X10*3/uL (0.0-0.4); Eosinophils Percent Auto 2.3 % (0-4); Imm Gran Abs Auto 0.02 X10*3/uL (0.00-0.03); Imm Gran Pct Auto 0.3 % (0.0-0.4); Lymphocytes Absolute Auto 1.3 X10*3/uL (1.2-4.9); Lymphocytes Percent Auto 16.9 % (20-40); Mean Corpuscular HGB Conc 32.4 g/dl (31.0-35.0); Mean Corpuscular Hemoglobin 28.5 pg (27.0-33.0); Mean Corpuscular Volume 87.9 fL (80.0-98.0); Mean Platelet Volume 9.9 fL (9.4-12.3); Monocytes Absolute Auto 0.8 X10*3/uL (0.1-1.2); Monocytes Percent Auto 9.7 % (2-11); Neutrophils Absolute Auto 5.5 x10*3/uL (2.0-8.3); Neutrophils Percent Auto 70.4 % (45-73); Platelet Count 213 X10*3/uL (160-400); Red Blood Count 4.21 X10*6/uL (4.20-5.50); Red Cell Distribution Width 14.6 % (11.0-16.0); White Blood Count 7.7 X10*3/uL (4.8-10.8)
[2024-02-21 23:15] LABS: Appearance Urine Clear; Color Urine Yellow; Glucose Urine UA Negative (Negative); Leukocyte Esterase Urine Small (1+) (Negative); Nitrite Urine Negative (Negative); PH 5.5 (5.0-9.0); Specific Gravity - Urine >= 1.030 (1.005-1.025); UMIC TRIGGER UACC YES; Urine Blood Negative (Negative); Urine Ketones Trace mg/dL (Negative); Urine Protein Negative (Neg-Trace)
[2024-02-21 23:20] LABS: Bacteria Urine None Seen (None Seen); Hyaline Casts Urine 0-2 /LPF (0-2); RBC Urine 0-2 /HPF (0-2); UACC Culture Trigger YES
--- OUTSIDE RECORDS SUMMARY | 2024-02-21 23:20 | XMS_ITS | Continuity of Care Document ---
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), Rinku Bonner Primary Care Ph ysician Encounter [facility] Date(s): 11/04/19 - [facility]04/[facility] [address] [address]- [facility] Attending Physician: Jerod Denton Admitting Physician: Jerod Denton Referring Physician: AdmtrJerod Allergies, Adverse Reactions, Alerts Substance Reaction Severity Status benzonatate Persistent Moderate Active Immunizations Given and Recorded Vaccine Date Status Refusal Reason tetanus/diphtheria/pertussis, acel(Tdap) 12/19/09 Given Medications aspirin 81 mg oral tablet, chewable 81 mg, By Mouth, Daily, # 30 tablet, Refills 0, Tot. Refills 0, Maintenance, 02/18/16 8:09:40, Do Not Route Start Date: 02/18/16 Status: Ordered carvedilol 6.25 mg oral tablet 6.25 mg, 1, tablet, By Mouth, 2 times a day, # 120 tablet, Refills 6, Tot. Refills 6, Maintenance, 06/28/19 7:40:00 EST, Route to Pharmacy Electronically, [facility]/pharmacy #[id number], this replaces bisoprololthat is unavailable please contact office once back... Start Date: 06/28/19 Stop Date: 08/21/20 Status: Ordered digoxin 0.125 mg oral tablet 125 mcg, 1, tablet, By Mouth, Daily, # 90 tablet, Refills 2, Tot. Refills 2, Maintenance, 07/15/19 8:57:00 EDT, Route to Pharmacy Electronically, [facility]/pharmacy #[id number], 160, cm, 06/28/19 7:51:00 EST, Height, 87.4, kg, 02/11/19 2:25:00 EDT, Dry Weight Start Date: 07/15/19 Stop Date: 04/10/20 Status: Ordered Entresto 49 mg-51 mg oral tablet 1 tablet, By Mouth, 2 times a day, # 60 tablet, 11 Refills, Maintenance, 05/17/19 16:00:00 EST, Tablet, [facility]/pharmacy #[id number], 1 tablet By Mouth 2 times a day, 160, cm, 05/17/19 15:27:00 EST, Height, 87.4, kg, 02/11/19 2:25:00 EDT, Dry Weight Start Date: 05/17/19 Status: Ordered Problem List Condition Effective Dates Status Health Status Inform ant Chronic systolic CHF (conges tive heart failure)(Confirmed) Active Essential tremor(Confirmed) Active GERD without esophagitis(Confirmed) Active H/O: pneumonia(Confirmed) Active Hearing impaired person(Confirmed) Active H/O cardiomyopathy(Confirmed) Active Right knee pain(Confirmed) Active Tremor(Confirmed) Active Social History Social History Type Response Smoking Status Former smoker; Tobac co user in household: No entered on: 12/29/16 Sex
--- OUTSIDE RECORDS SUMMARY | 2024-02-21 23:20 | XMS_ITS | Continuity of Care Document ---
Author Organization [facility] Address [address] [place] [address]- Care Team Providers Care Family Services Assistant Name Role Phone Arlin HENAO ([facility])Rinku Primary Care ysician Encounter [facility] Date(s): 04/23/19 - 08/21/19 [facility] [address] [place] [address]- [facility] Attending Physician: Arlin HENAO ([facility]), Rinku Bonner Allergies, Adverse Reactions, Alerts Substance Reaction Severity [...] 06/28/19 7:40:00 EST, Route to Pharmacy Electronically, [facility]/pharmacy #[id number], this replaces bisoprololthat is unavailable please contact office once back... Start Date: 06/28/19 Stop Date: 08/21/20 Status: Ordered digoxin 0.125 mg oral tablet 125 mcg, 1, tablet, By Mouth, Daily, # 90 tablet, Refills 2, Tot. Refills 2, Maintenance, 07/15/19 8:57:00 EDT, Route to Pharmacy Electronically, [facility]/pharmacy #[id number], 160, cm, 06/28/19 7:51:00 EST, Height, 87.4, kg, 02/11/19 2:25:00 EDT, Dry Weight Start Date: 07/15/19 Stop Date: 04/10/20 Status: Ordered Entresto 49 mg-51 mg oral tablet 1 tablet, By Mouth, 2 times a day, # 60 tablet, 11 Refills, Maintenance, 05/17/19 16:00:00 EST, Tablet, [facility]/pharmacy #[id number], 1 tablet By Mouth 2 times [...]
--- OUTSIDE RECORDS SUMMARY | 2024-02-21 23:20 | XMS_ITS | Continuity of Care Document ---
Author Organization [facility] Address [address] [place] [address], [address] [place] [address]- Care Team Providers Care Tabulating Clerk Name Role Phone Jaun Eason DO Primary Care Physician [id number] Date(s[facility]/17/23 - 12/17/23 [facility] [address] [facility], [address] [place], [place] [address] Attending Physician: AdmJerod weber Admitting Physician: AdmtrJerod Referring Physician: Admtr, Ar8 Allergies, Adverse Reactions, Alerts Substance Reaction Severity Status benzonatate Persistent Moderate Active Immunizations Given and Recorded Vaccine Date Status Refusal Reason SARS-CoV-2 (COVID-19) mRNA BNT-162b2 vac 04/20/21 Recorded SARS-CoV-2 (COVID-19) mRNA BNT-162b2 vac 09/01/20 Recorded SARS-CoV-2 (COVID-19) mRNA BNT-162b2 vac 08/11/20 Recorded tetanus/diphtheria/pertussis, acel(Tdap) 02/20/20 Given tetanus/diphtheria/pertussis, acel(Tdap) 12/19/09 Given influenza virus vaccine, inactivated 02/20/20 Give n Medications aspirin 81 mg oral tablet, chewable 81 mg, By Mouth, Daily, # 30 tablet, Refills 0, Tot. Refills 0, Maintenance, 02/18/16 8:09:40, Do Not Route Start Date: 02/18/16 Status: Ordered busPIRone 10 mg oral tablet Refills 0, Maintenance, 11/01/23 9:35:00 EDT, Partial fill upon patient request if the prescriptionis for a schedule II opioid drug. Start Date: 11/01/23 Status: Ordered carvedilol 12.5 mg oral tablet 12.5 mg, 1, tablet, By Mouth, 2 times a day, # 180 tablet, Refills 11, Tot. Refills 11, Maintenance, 11/01/23 9:46:00 EDT, Route to Pharmacy Electronically, [facility], Dose increase,160, cm, 11/01/23 9:33:00 EDT, Height, 86, kg, 02/26/23... Start Date: 11/01/23 Status: Ordered Durable Medical Equipment See Instructions, Maintenance, 03/23/21 10:38:00 EST, Supply Start Date: 03/23/21 Status: Ordered Entresto 49 mg-51 mg oral tablet 1 tablet, By Mouth, 2 times a day, # 60 tablet, 5 Refills, Maintenance, 06/09/23 14:17:00 EST, [facility], 1 tablet By Mouth 2 times a day,x30 days, 160, cm, 04/12/23 9:49:00 EST, Height, 86, kg, 02/26/23 20:29:00 EST, Dry Weight Start Date: 06/09/23 Stop Date: 12/06/23 Status: Ordered Fish Oil By Mouth, 0 Refills, Maintenance, 09/07/21 14:53:00 EDT, Partial fill upon patient request if the prescription is for a schedule II opioid drug. Start Date: 09/07/21 Status: Ordered medroxyPROGESTERone 5 mg oral tablet 1 tablet, By Mouth, Daily, # 30 tablet, 12 Refills, Maintenance, 04/12/23 9:56:00 EST, [facility], 160, cm, 04/12/23 9:49:00 EST, Height, 86, kg, 02/26/23 20:29:00 EST, Dry Weight Start Date: 04/12/23 Status: Ordered primidone 50 mg oral tablet 50 mg, 1, tablet, By Mouth, Daily at bedtime, # 90 tablet, Refills 3, Tot. Refills 3, Maintenance, 02/28/23 8:27:00 EST, Route to Pharmacy Electronically, [facility], Partial fill upon patient request if the prescription is for a schedule... Start Date: 02/28/23 Status: Ordered spironolactone 25 mg oral tablet 1, tablet, By Mouth, Daily, # 30 tablet, Refills 11, Tot. Refills 11, Maintenance, 04/14/23 11:35:00 EST, Route to Pharmacy Electronically, [facility], 160, cm, 04/12/23 9:49:00 EST, Height, 86, kg, 02/26/23 20:29:00 EST, Dry Weight Start Date: 04/14/23 Stop Date: 04/08/24 Status: Ordered venlafaxine 150 mg oral capsule, extended release TAKE 1 CAPSULE BY MOUTH EVERY DAY WITH FOOD FOR 30 DAYS Start Date: 10/03/21 Status: Ordered Vitamin D3 2000 intl units oral capsule 1 capsule = 2,000 International_Units, By Mouth, Daily, # 90 capsule, 3 Refills, Maintenance, 04/10/20 13:57:00 EST, [id number], 158, cm, 02/24/20 9:14:00 EST, Height, 84, kg, 12/16/19 9:42:00 EDT, Dry Weight Start Date: 04/10/20 Stop Date: 04/05/21 Status: Ordered Problem List Condition Confirmation Course Effective Dates Status H ealth Status Informant Last pap smear 09/10/20 ASCUS with negative HPV Confirmed Active Nonischemic cardiomyopathy Confirmed Active Chronic systolic CHF (congestive heart failure) Confirmed Active Essential tremor Confirmed Active History of multiple falls Confirmed Active Family history of some sort of METHODS EXAMINER cancer in her mother Confirmed Active GERD without esophagitis Confirmed Active History of pneumonia Confirmed Active Hearing impaired Confirmed Active History of cardiomyopathy Confirmed Active Estrogen excess Confirmed Active Patient states she has difficulty with comprehension Confirmed Active Cognitive impairment Confirmed Active Menopausal state since age 50 Confirmed Active Obesity Confirmed Active Obstructive sleep apnea Confirmed Active Postmenopausal bleeding Confirmed Active Severe obesity (BMI 35.0-39.9) with comorbidity Confirmed Active Treatment-emergent central sleep apnea Confirmed Active Dry mouth Confirmed Active Social History Social History Type Response Smoking Status Former smoker; Other : Quit 2010; entered on: 03/02/16 Sex Radiology * Event Display: Ultrasound Pelvis, Non-BH Authored Date: [id number] Patient Care team information Care Team Personnel Name: Loretta Schwab RN Position: S RN Member Role: Primary Care Nurse Name: Jaun Eason DO Position: [facility] Outreach Member Role: PCP Address: Address: [address] [place] [address]- [place] Name: Tesha Matias NP Position: Reference Physician Member Role: Primary Care Nurse Address: Address: [address] [facility] [place] [address]- [place] Name: Robert Cherry RN Position: [facility] RN Member Role: Primary Care Nurse Name: Elina Greene LPN Position: S RN Member Role: Primary Care Nurse Name: Rafael Ho RN Position: [facility] ED RN W/OE and Tasks Member Role: Primary Care Nurse Name: Kayley Baker RN Position: [facility] RN Member Role: Primary Care Nurse Name: Christine Mays RN Position: [facility] RN Member Role: Primary Care Nurse Name: Farzana Perez RN Position: [facility] RN Member Role: Primary Care Nurse Care Team Related Persons Name: RONAK RIOS Address: [address] [place] [address] Name: KENA RIOS Address: [address] [place] [address] Name: RANDALL RIOS Address: [address] [place] [address]
--- OUTSIDE RECORDS SUMMARY | 2024-02-21 23:20 | XMS_ITS | Continuity of Care Document ---
Author Organization [facility] Address [address] [place] [address]- Care Team Providers Care Barrel Roller Name Role Phone Jaun Eason DO Primary Care Physician Encounter [facility] Date(s): 04/14/23 - 05/14/23 [facility] [address] [place] [phone]- [place] Allergies, Adverse Reactions, Alerts Substance Reaction Severity [...] Status: Ordered carvedilol 6.25 mg oral tablet 1, tablet, By Mouth, 2 times a day, # 60 tablet, Refills 5, Tot. Refills 5, Maintenance, 11/24/22 17:03:00 EDT, Route to Pharmacy Electronically, [facility], 160, cm, 11/11/22 9:32:00EDT, Height, 89.9, kg, 11/11/22 9:32:00 EDT, Dry Weight Start Date: 11/24/22 Stop Date: 05/23/23 Status: Ordered Durable Medical Equipment See Instructions, Maintenance, 03/23/21 10:38:00 EST, Supply Start Date: 03/23/21 Status: Ordered Entresto 49 mg-51 mg oral tablet 1 tablet, By Mouth, 2 times a day, # 28 tablet, 0 Refills, Maintenance, 07/15/22 8:37:00 EDT, [facility]/pharmacy #0315, 1 tablet By Mouth 2 times a day,x14 days, 160, cm, 05/06/22 10:53:00 EST, Height, 87.3, kg, 03/27/22 1:36:00 EST, Dry Weight Start Date: 07/15/22 Stop Date: 07/29/22 Status: Ordered Fish Oil By Mouth, 0 [...] Weight Start Date: 04/12/23 Status: Ordered primidone 250 mg oral tablet 250 mg, 1, tablet, By Mouth, Daily at bedtime, for 30 days, # 90 tablet, Refills 3, Tot. Refills 3,Hard Stop 10/21/23 15:09:00 EDT, 06/23/23 15:09:00 EST, Route to Pharmacy Electronically, [facility], Partial fill upon patient request if... Start Date: 06/23/23 Stop Date: 10/21/23 Status: Ordered primidone 250 mg oral tablet 250 mg, 1, tablet, By Mouth, Daily at bedtime, for 30 days, # 30 tablet, Refills 5, Tot. Refills 5,Hard Stop 06/23/23 15:09:00 EST, 12/25/22 15:09:00 EDT, Route to Pharmacy Electronically, [facility], Partial fill upon patient request if... Start Date: 12/25/22 Stop Date: 06/23/23 Status: Ordered primidone 50 mg oral tablet [...] Date: 04/14/23 Stop Date: 04/08/24 Status: Ordered torsemide 20 mg oral tablet 0.5 tablet, By Mouth, Daily, # 15 tablet, 3 Refills, Maintenance, 08/01/22 8:02:00 EDT, [facility], 160, cm, 05/06/22 10:53:00 EST, Height, 87.3, kg, 03/27/22 1:36:00 EST, Dry Weight Start Date: 08/01/22 Status: Ordered venlafaxine 150 mg oral capsule, [...] Active Family history of some sort of PROSTHETIST cancer in her mother Confirmed Active GERD [...] : Quit 2010; entered on: 03/02/16 Sex Patient Care team information Care Team Personnel Name: Loretta Schwab RN Position: [facility] RN Member Role: Primary Care Nurse Name: Jaun Eason DO Position: [facility] Physician - Primary Care Member Role: PCP Address: Address: [address] [place] [address]- Name: Elsa Tee RN Position: S RN Member Role: Primary Care Nurse Name: Tesha Matias NP Position: Reference Physician Member Role: Primary Care Nurse Address: Address: [address] [place] [address]- Name: Robert Cherry RN Position: [facility] RN Member Role: Primary Care Nurse Name: Elina Greene LPN Position: S RN Member Role: Primary Care Nurse Name: Lamar Talbert RN Position: [facility] RN Supv Member Role: Primary Care Nurse Name: Rafael Ho RN Position: [facility] ED RN W/OE and Tasks Member Role: Primary Care Nurse Name: Kayley Baker RN Position: S RN Member Role: Primary Care Nurse Name: Christine Mays RN Position: [facility] RN Member Role: Primary Care Nurse Name: Farzana Perez RN Position: [facility] RN Member Role: Primary Care Nurse Care Team Related Persons Name: RONAK RIOS Address: home [address] [place] [address] Name: KENA RIOS Address: [address] [place] [address] Name: RANDALL RIOS Address: [address] [place] [address]
--- OUTSIDE RECORDS SUMMARY | 2024-02-21 23:20 | XMS_ITS | Continuity of Care Document ---
Author Organization [facility] Address [address] [place] [address]- Care Team Providers Care Produce Sorter Name Role Phone Jaun Eason DO Primary Care Physician Encounter [facility] Date(s): 12/10/20 - 02/19/21 [facility] [address] [place] [address]- Attending Physician: Luiz Christian MD Referring Physician: Jaun Eason DO Allergies, Adverse Reactions, Alerts Substance Reaction Severity Status benzonatate Persistent Moderate Active Immunizations Given and Recorded Vaccine Date Status Refusal Reason SARS-CoV-2 (COVID-19) mRNA BNT-162b2 vac 09/01/20 Recorded [...] tablet, By Mouth, 2 times a day, X60 DAYS., # 120 tablet, Refills 6, Tot. Refills 0, Maintenance, 10/23/20 12:37:00 EDT, Route to Pharmacy Electronically, [facility], 160, cm, 09/10/20 15:03:00 EDT, Height, 73.4, kg, 05/20/21 9:18:00 EDT, Dry... Start Date: 10/23/20 Status: Ordered digoxin 0.125 mg oral tablet 1, tablet, By Mouth, Daily, # 90 tablet, Refills 1, Route to Pharmacy Electronically, [facility], 160, cm, 12/10/20 9:01:00 EDT, Height, 73.4, kg, 09/10/20 9:18:00 EDT, Dry Weight Start Date: 12/13/20 Status: Ordered Entresto 49 mg-51 mg oral tablet 1 tablet, By Mouth, 2 times a day, # 60 tablet, 11 Refills, Maintenance, 07/01/20 11:14:00 EST, Tablet, [facility]/pharmacy #0315, 1 tablet By Mouth 2 times a day, 160, cm, 05/27/20 9:55:00 EST, Height, 82.9, kg, 05/06/20 12:35:00 EST, Dry Weight Start Date: 07/01/20 Status: Ordered Sertraline By Mouth, Daily, 0 Refills, Maintenance, 11/06/20 16:09:00 EDT, Partial fill upon patient request if the prescription is for a schedule II opioid drug. Start Date: 11/06/20 Status: Ordered Problem List Condition Effective Dates Status Health Status Inform ant Last pap smear 09/10/20 ASCUS with negative HPV(Confirmed) Active Chronic systolic CHF (conges tive heart failure)(Confirmed) Active Essential tremor(Confirmed) Active History of multiple falls(Confirmed) Active Family history of some sort of SMOKED MEAT PREPARER cancer in her mother(Confirmed) Active GERD without esophagitis(Confirmed) Active History of pneumonia(Confirmed) Active Hearing impaired(Confirmed) Active History of cardiomyopathy(Confirmed) Active 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 with comprehension(Confirmed) Active Cognitive impairment(Confirmed) Active Menopausal state since age 50(Confirmed) Active Postmenopausal bleeding(Confirmed) Active Social History Social History Type Response Smoking Status Former smoker; Other : Quit 2010; entered on: 03/02/16 Sex
--- OUTSIDE RECORDS SUMMARY | 2024-02-21 23:20 | XMS_ITS | Continuity of Care Document ---
Author Organization [facility] Address [address] [place] [address]- Care Team Providers Care Nurse Auditor Name Role Phone Anelmindi LEEJaun Primary Care Physician Encounter [facility] Date(s): 03/27/22 - 03/27/[address] [address]- Encounter Diagnosis Laryngitis(Final) - 03/27/22 Discharge Disposition: A-D/C Home Attending Physician: Harrison Jackson DO Admitting Physician: Harrison Jackson DO Referring Physician: Not on Staff, Referring MD Allergies, Adverse Reactions, Alerts Substance Reaction Severity [...] times a day, # 60 tablet, Refills 3, Maintenance, 03/16/22 8:34:00 EST, Route to Pharmacy Electronically, [facility], 160, cm, 01/13/22 11:06:00 EDT, Height, 87.9, kg, 10/04/21 1:04:00 EDT, Dry Weight Start Date: 03/16/22 Stop Date: 04/15/22 Status: Ordered digoxin 0.125 mg oral tablet 125 mcg, 1, tablet, By Mouth, Daily, # 30 tablet, Refills 11, Tot. Refills 11, Maintenance, 02/14/22 7:26:00 EDT, Route to Pharmacy Electronically, [facility]/pharmacy #0315, Partial fill upon patient request if the prescription is for a schedule II opioid d... Start Date: 02/14/22 Status: Ordered Durable Medical Equipment See Instructions, Maintenance, 03/23/21 10:38:00 EST, Supply Start Date: 03/23/21 Status: Ordered Entresto 49 mg-51 mg oral tablet 1 tablet, By Mouth, 2 times a day, # 60 tablet, 5 Refills, Maintenance, 11/11/21 7:16:00 EDT, [facility], this is an increased dose, 1 tablet By Mouth 2 times a day, 160, cm, 11/10/2210:18:00 EDT, Height, 87.9, kg, 10/04/21 1:04:00 ED... Start Date: 11/11/21 Status: Ordered Fish Oil By Mouth, 0 Refills, Maintenance, 09/07/21 14:53:00 EDT, Partial fill upon patient request if the prescription is for a schedule II opioid drug. Start Date: 09/07/21 Status: Ordered Primidone 300 mg, By Mouth, 3 times a day, Refills 0, Maintenance, 11/30/21 14:42:00 EDT, Partial fill upon patient request if the prescription is for a schedule II opioid drug. Start Date: 11/30/21 Status: Ordered primidone 250 mg oral tablet 250 mg, 1, tablet, By Mouth, Daily at bedtime, # 30 tablet, Refills 5, Tot. Refills 5, Maintenance,11/30/21 14:12:00 EDT, Route to Pharmacy Electronically, [facility]/pharmacy #0315, Partial fill upon patient request if the prescription is for a schedule II... Start Date: 11/30/21 Stop Date: 05/29/22 Status: Ordered primidone 50 mg oral tablet 50 mg, 1, tablet, By Mouth, Daily at bedtime, take with primidone 250 mg, for total dos eof 300 mg hs, # 30 tablet, Refills 5, Tot. Refills 5, Maintenance, 11/30/21 14:13:00 EDT, Route to Pharmacy Electronically, [facility]/pharmacy #0315, Partial fill upon... Start Date: 11/30/21 Stop Date: 05/29/22 Status: Ordered Provera 5 mg oral tablet 1 tablet = 5 mg, By Mouth, Daily, # 90 tablet, 4 Refills, Maintenance, 06/08/21 9:18:00 EST, [facility]t, [facility], Partial fill upon patient request if the prescription is for a schedule II opioid drug., 160, cm, 06/08/21 8:40:00 EST, Height, 85... Start Date: 06/08/21 Status: Ordered spironolactone 25 mg oral tablet 1, tablet, By Mouth, Daily, # 90 tablet, Refills 1, Maintenance, 01/02/22 8:06:00 EDT, Route to Pharmacy Electronically, [facility], 160, cm, 12/24/21 10:28:00 EDT, Height, 87.9, kg, 10/04/21 1:04:00 EDT, Dry Weight Start Date: 01/02/22 Status: Ordered torsemide 20 mg oral tablet 0.5 tablet = 10 mg, By Mouth, Daily, # 15 tablet, 3 Refills, Maintenance, 11/30/21 16:51:00 EDT, [facility]/pharmacy #0315, Partial fill upon patient request if the prescription is for a schedule II opioid drug., 160, cm, 11/30/21 14:40:00 EDT, Height, 87.9,... Start Date: 11/30/21 Status: Ordered torsemide 20 mg oral tablet 0.5 tablet, By Mouth, Daily, # 15 tablet, 3 Refills, Maintenance, 03/23/22 8:36:00 EST, [facility], 160, cm, 01/13/22 11:06:00 EDT, Height, 87.9, kg, 10/04/21 1:04:00 EDT, Dry Weight Start Date: 03/23/22 Status: Ordered venlafaxine 150 mg oral capsule, [...] 09/10/20 ASCUS with negative HPV Confirmed Active Chronic systolic CHF (congestive heart failure) Confirmed Active Essential tremor Confirmed Active History of multiple falls Confirmed Active Family history of some sort of MOBILITY SPECIALIST cancer in her mother Confirmed Active GERD without esophagitis Confirmed Active History of pneumonia Confirmed Active Hearing impaired Confirmed Active History of cardiomyopathy Confirmed Active Estrogen excess Confirmed Active Patient states she has difficulty with comprehension Confirmed Active Cognitive impairment Confirmed Active Menopausal state since age 50 Confirmed Active Obese class I Confirmed Active Obstructive sleep apnea Confirmed Active Postmenopausal bleeding Confirmed Active Treatment-emergent central sleep apnea Confirmed Active Dry mouth Confirmed Active Results Orders for Microbiology Reports Name Date Group A Strep Screen and Culture 03/27/22 Microbiology Reports TEST:Group A Strep Screen and Culture STATUS:Unauthenticated BODY SITE: SOURCE:THROAT COLLECTED DATE/TIME:03/27/22 1:23 AM Group A Strep Screen and Culture SPECIMEN DESCRIPTION : THROAT SWAB SPECIAL REQUESTS : NONE DIRECT EXAM : RAPID GROUP A RESULT IS NEGATIVE, REFER TO CULTURE RESULT. REPORT STATUS : PRELIMINARY REPORT Radiology Reports * Exam Date Time Procedure Performing Provider Status 03/27/22 3:54 AM Chest 2 Views Frontal and Lat Elisha Rice; Auth (Verified) Notes: (Chest 2 Views Frontal and Lat) Reason For Exam: Fever;Cough RESULT: Chest 2 Views Frontal and Lat Chest 2 Views Frontal and Lat Hx of Present Illness: c o productive cough with yellow sputum bilat ear pain and throat pain no fevers +chills also c o swelling lower exts ls cta voice horse; Reason: Cough; Fever; Clinical Question(s): Pneumonia; Special Instructions: This is a protocol film and radiologist should call any findings to the Charge Nurse COMPARISON: 11/20/2011. FINDINGS: LINES AND TUBES: None. LUNGS AND PLEURA: Clear lungs. Normal pulmonary vascularity. No pleural effusion. No pneumothorax. HEART, MEDIASTINUM AND ZAKIA: Heart is normal in size. Normal mediastinal and hilar contour. BONES AND SOFT TISSUES: No acute abnormality. IMPRESSION: No acute abnormality. WSN: [id number] Ordering Physician: Harrison Jackson Dictated By: Floresita Damon MD Dictated Date/Time: 03/27/22 9:53 am Reviewed By: Floresita Damon MD Signed By: Floresita Damon MD Signed Date/Time: 03/27/22 9:53 am Transcribed By: KRISTINE Transcribed Date/Time: 03/27/22 6:15 am Vital Signs Most recent to oldest [Reference Range]: 1 2 3 Height 160 cm (03/27/22 4:49 AM) 160 cm (03/27/22 1:36 AM) 160 cm (03/27/22 1:22 AM) Weight 87.3 kg (03/27/22 1:36 AM) 87.3 kg (03/27/22 1:22 AM) Oxygen Saturation [94-100 %] 94 % (03/27/22 4:49 AM) 98 % (03/27/22 1:22 AM) Pulse Rate [55-90 bpm] 85 bpm (03/27/22 4:49 AM) 73 bpm (03/27/22 1:22 AM) Body Mass Index [18.5-24.99 kg/m2] 34.1 kg/m2 *>HHI* (03/27/22 1:22 AM) Blood Pressure [90-138/55-84 mm Hg] 121/67mm Hg (03/27/22 4:49 AM) 134/74mm Hg (03/27/22 1:22 AM) Respiratory Rate [16-30 br/min] 16 br/min (03/27/22 4:49 AM) 22 br/min (03/27/22 1:22 AM) Temperature [96.8-100.4 DegF] 98.6 DegF (03/27/22 1:22 AM) Mode of Delivery (Oxygen) Room air (03/27/22 4:49 AM) Room air (03/27/22 1:22 AM) Blood pressure sites Arm, left (03/27/22 4:49 AM) Temperature Route Temporal (03/27/22 1:22 AM) Dry Weight 87.3 kg (03/27/22 1:36 AM) 87.3 kg (03/27/22 1:22 AM) Weight Obtained Via Standing scale (03/27/22 1:22 AM) Dry Weight Obtained Via Standing scale (03/27/22 1:22 AM) Social History Social History Type Response Smoking Status Former smoker; Other : Quit 2010; entered on: 03/02/16 Sex Note * BHSPowerscribe , CIS S: TRANSCRIBE Floresita Damon MD: VERIFY Event Display: Result: Authored Date: [id number] Chest 2 Views Frontal and Lat Hx of Present Illness: c o productive cough with yellow sputum bilat ear pain and throat pain no fevers +chills also c o swelling lower exts ls cta voice horse; Reason: Cough; Fever; Clinical Question(s): Pneumonia; Special Instructions: This is a protocol film and radiologist should call any findings to the Charge Nurse COMPARISON: 11/20/2011. FINDINGS: LINES AND TUBES: None. LUNGS AND PLEURA: Clear lungs. Normal pulmonary vascularity. No pleural effusion. No pneumothorax. HEART, MEDIASTINUM AND ZAKIA: Heart is normal in size. Normal mediastinal and hilar contour. BONES AND SOFT TISSUES: No acute abnormality. IMPRESSION: No acute abnormality. WSN: [id number] Ordering Physician: Harrison Jackson Dictated By: Floresita Damon MD Dictated Date/Time: 03/27/22 9:53 am Reviewed By: Floresita Damon MD Signed By: Floresita Damon MD Signed Date/Time: 03/27/22 9:53 am Transcribed By: KRISTINE Transcribed Date/Time: 03/27/22 6:15 am Patient Care team information Care Team Personnel Name: Jania Cadet Position: S RN Member Role: Primary Care Nurse Name: Loretta Schwab RN Position: S RN Member Role: Primary Care Nurse Name: Jania Richmond RN Position: [facility] RN Member Role: Primary Care Nurse Name: Jaun Eason DO Position: [facility] Physician (General Medicine) Member Role: PCP Address: Address: [address] [place] [address]- [place] Name: Junior Pearl RN Position: [facility] RN Member Role: Primary Care Nurse Name: Elsa Tee RN Position: S RN Member Role: Primary Care Nurse Name: Tesha Matias NP Position: Reference Physician Member Role: Primary Care Nurse Address: Address: [address] [place] [address]- [place] Name: Robert Cherry RN Position: [facility] RN Member Role: Primary Care Nurse Name: Elina Greene LPN Position: [facility] RN Member Role: Primary Care Nurse Name: Lamar Talbert RN Position: [facility] RN Member Role: Primary Care Nurse Name: Rafael Ho RN Position: [facility] ED RN W/OE and Tasks Member Role: Primary Care Nurse Name: Kayley Baker RN Position: [facility] RN Member Role: Primary Care Nurse Name: Christine Mays RN Position: [facility] RN Member Role: Primary Care Nurse Name: Farzana Perez Position: [facility] RN Member Role: Primary Care Nurse Name: Toney Douglas RN Position: [facility] ED RN W/OE and Tasks Member Role: Patient Care Provider Name: Harrison Jackson DO Position: [facility] ED Medicine MD Member Role: Admitting Physician Address: Address: [address] [place] [address] [place] [address]- [place] Name: Lisa Rosen Position: [facility] ED TA [facility] Member Role: Patient Care Provider Care Team Related Persons Name: RONAK RIOS Address: home [address] [place], [place] Name: KENA RIOS Address: [address] [place] [address] Name: BLANCA RANDALL Address: [address] [place] [address]
--- OUTSIDE RECORDS SUMMARY | 2024-02-21 23:20 | XMS_ITS | Continuity of Care Document ---
Author Organization [facility] Address [address] [place] [address]- Care Team Providers Care Technical Operations Vice President Name Role Phone Arlin HENAO ([facility]), Rinku Bonner Primary Care Ph ysician Encounter [facility] Date(s): 07/03/19 - 11/15/[address] [address]- [facility] Attending Physician: Michael Lyman MD Admitting Physician: Michael Lyman MD Allergies, Adverse Reactions, Alerts Substance Reaction [...] 06/28/19 7:40:00 EST, Route to Pharmacy Electronically, [facility]/pharmacy #[id number], this replaces bisoprololthat is unavailable please contact office once back... Start Date: 06/28/19 Stop Date: 08/21/20 Status: Ordered digoxin 0.125 mg oral tablet 125 mcg, 1, tablet, By Mouth, Daily, # 90 tablet, Refills 2, Tot. Refills 2, Maintenance, 07/15/19 8:57:00 EDT, Route to Pharmacy Electronically, [facility]/pharmacy #0315, 160, cm, 06/28/19 7:51:00 EST, Height, 87.4, kg, 02/11/19 2:25:00 EDT, Dry Weight Start Date: 07/15/19 Stop Date: 04/10/20 Status: Ordered Entresto 49 mg-51 mg oral tablet 1 tablet, By Mouth, 2 times a day, # 60 tablet, 11 Refills, Maintenance, 05/17/19 16:00:00 EST, Tablet, [facility]/pharmacy #0315, 1 tablet By Mouth 2 times [...]
--- OUTSIDE RECORDS SUMMARY | 2024-02-21 23:20 | XMS_ITS | Continuity of Care Document ---
Author Organization [facility] Address [address] [place] [address]- Care Team Providers Care Service Desk Agent Name Role Phone EbenezerJaun victor DO Primary Care Physician Encounter [facility] Date(s): 03/01/21 - 03/31/21 [facility] [address] [place] [address]- [place] Allergies, Adverse Reactions, Alerts Substance Reaction [...] 10/23/20 12:37:00 EDT, Route to Pharmacy Electronically, [facility], 160, cm, 09/10/20 15:03:00 EDT, Height, 73.4, kg, 09/10/20 9:18:00 EDT, Dry... Start Date: 10/23/20 Status: Ordered digoxin 0.125 mg oral tablet 1, tablet, By Mouth, Daily, # 90 tablet, Refills 1, Route to Pharmacy Electronically, [facility], 160, cm, 12/10/20 9:01:00 EDT, Height, 73.4, kg, 09/10/20 9:18:00 EDT, Dry Weight Start Date: 12/13/20 Status: Ordered Durable Medical Equipment See Instructions, Maintenance, 03/23/21 10:38:00 EST, Supply Start Date: 03/23/21 Status: Ordered Entresto 49 mg-51 mg oral tablet 1 tablet, By Mouth, 2 times a day, # 60 tablet, 11 Refills, Maintenance, 07/01/20 11:14:00 EST, Tablet, [facility]/pharmacy #0315, 1 tablet By Mouth 2 times a day, 160, cm, 05/27/20 9:55:00 EST, Height, 82.9, kg, 05/06/20 12:35:00 EST, Dry Weight Start Date: 07/01/20 Status: Ordered Sertraline = 100 mg, By Mouth, Daily, 0 Refills, Maintenance, 11/06/20 16:09:00 EDT, Partial fill upon patientrequest if the prescription is for a schedule II opioid drug. Start Date: 11/06/20 Status: Ordered Problem List Condition Effective Dates Status Health Status Inform ant Last pap smear 09/10/20 ASCUS with negative HPV(Confirmed) Active Chronic systolic CHF (conges tive heart failure)(Confirmed) Active Essential tremor(Confirmed) Active History of multiple falls(Confirmed) Active Family history of some sort of WILLOW MACHINE OPERATOR cancer in her mother(Confirmed) Active GERD without esophagitis(Confirmed) Active History of pneumonia(Confirmed) Active Hearing impaired(Confirmed) Active History of cardiomyopathy(Confirmed) Active 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 with comprehension(Confirmed) Active Cognitive impairment(Confirmed) Active Menopausal state since age 50(Confirmed) Active Obese class I(Confirmed) Active Postmenopausal bleeding(Confirmed) Active Social History Social History Type Response Smoking Status Former smoker; Other : Quit 2010; entered on: 03/02/16 Sex
--- OUTSIDE RECORDS SUMMARY | 2024-02-21 23:20 | XMS_ITS | Continuity of Care Document ---
Author Organization [facility] [employer] [facility] Address [address] [place] [address]- Care Team Providers Care Registered Respiratory Technician Name Role Phone Jaun Eason DO Primary Care Physician Encounter [facility] Date(s): 03/04/21 - 04/03/21 [facility] Madleine [employer] [facility] [address] [place], [place] [address] Attending Physician: Admtia, Edy8 Admitting Physician: Admtr, Ar8 Referring Physician: Admtr, Ar8 Allergies, Adverse Reactions, [...] 10/23/20 12:37:00 EDT, Route to Pharmacy Electronically, [facility], 160, cm, 09/10/20 15:03:00 EDT, Height, 73.4, kg, 09/10/20 9:18:00 EDT, Dry... Start Date: 10/23/20 Status: Ordered digoxin 0.125 mg oral tablet 1, tablet, By Mouth, Daily, # 90 tablet, Refills 1, Route to Pharmacy Electronically, [facility], 160, cm, 12/10/20 9:01:00 EDT, Height, 73.4, kg, 09/10/20 9:18:00 EDT, Dry Weight Start Date: 12/13/20 Status: Ordered Durable Medical Equipment See Instructions, Maintenance, 03/23/21 10:38:00 EST, Supply Start Date: 03/23/21 Status: Ordered Effexor XR 75 mg oral capsule, extended release 75 mg, 1, capsule, By Mouth, Daily, # 30 capsule, Refills 1, Tot. Refills 1, Maintenance, 04/02/21 14:34:00 EST, [facility] Partial fill upon patient request if the prescription is for a schedule II opioid . Start Date: 04/02/21 Stop Date: 06/01/21 Status: Ordered Entresto 49 mg-51 mg oral tablet 1 tablet, By Mouth, 2 times a day, # 60 tablet, 11 Refills, Maintenance, 07/01/20 11:14:00 EST, Tablet, [facility]/pharmacy #0315, 1 tablet By Mouth 2 times a day, 160, cm, 05/27/20 9:55:00 EST, Height, 82.9, kg, 05/06/20 12:35:00 EST, Dry Weight Start Date: 07/01/20 Status: Ordered Problem List Condition Effective Dates Status Health Status Inform ant Last pap smear 09/10/20 ASCUS with negative HPV(Confirmed) Active Chronic systolic CHF (conges tive heart failure)(Confirmed) Active Essential tremor(Confirmed) Active History of multiple falls(Confirmed) Active Family history of some sort of PROJECT SUPERINTENDENT cancer in her mother(Confirmed) Active GERD without [...]
--- OUTSIDE RECORDS SUMMARY | 2024-02-21 23:20 | XMS_ITS | Continuity of Care Document ---
Author Organization [facility] Address [address] [place] [address]- Care Team Providers Care Fire Patroller Name Role Phone EbenezerJaun victor DO Primary Care Physician Encounter [facility] Date(s): 10/20/23 - 11/19/23 [facility] [address] [place] [address]- [place] Allergies, Adverse Reactions, Alerts Substance Reaction [...] 04/14/23 11:35:00 EST, Route to Pharmacy Electronically, [facility], 160, cm, 04/12/23 9:49:00 EST, [...] Active Family history of some sort of OUTBOARD MOTOR MECHANIC cancer in her mother Confirmed Active GERD [...] Care Nurse Name: Jaun Eason DO Position: S Outreach Member Role: PCP Address: Address: [address] [place] [address] [address] [place] [address]- Name: Tesha Matias NP Position: Reference Physician Member Role: Primary Care Nurse Address: Address: [address] [place] [address] Dr Yoko Pineda [place], [place] [address] Name: Robert Cherry RN Position: S RN Member Role: Primary Care Nurse Name: Elina Greene LPN Position: S RN Member Role: Primary Care Nurse Name: Rafael Ho RN Position: [facility] ED RN W/OE and Tasks Member Role: Primary Care Nurse Name: Kayley Baker RN Position: S RN Member Role: Primary Care Nurse Name: Christine Mays RN Position: [facility] RN Member Role: Primary Care Nurse Name: Farzana Perez RN Position: [facility] RN Member Role: Primary Care Nurse Care Team Related Persons Name: RONAK RIOS Address: home [address] [place] [address] Name: KENA RIOS Address: [address] [place] [address] Name: RANDALL RIOS Address: [address] [place] [address]
--- OUTSIDE RECORDS SUMMARY | 2024-02-21 23:20 | XMS_ITS | Continuity of Care Document ---
Author Organization [facility] Address [address] [place] [address]- Care Team Providers Care Director Of Vocational Guidance Name Role Phone Arlin HENAO ([facility]), Rinku Bonner Primary Care Ph ysician Encounter [facility] Date(s): 05/26/20 - 06/25/20 [facility] [address] [place] [address]- Attending Physician: Arlin HENAO ([facility])Rinku Allergies, Adverse Reactions, Alerts Substance Reaction Severity Status benzonatate Persistent Moderate Active Immunizations Given and Recorded Vaccine Date Status Refusal Reason tetanus/diphtheria/pertussis, acel(Tdap) 02/20/20 Given tetanus/diphtheria/pertussis, acel(Tdap) 12/19/09 [...] 06/28/19 7:40:00 EST, Route to Pharmacy Electronically, [facility]/pharmacy #[id number], this replaces bisoprololthat is unavailable please contact office once back... Start Date: 06/28/19 Stop Date: 08/21/20 Status: Ordered digoxin 0.125 mg oral tablet 125 mcg, 1, tablet, By Mouth, Daily, # 90 tablet, Refills 2, Tot. Refills 2, Maintenance, 07/15/19 8:57:00 EDT, Route to Pharmacy Electronically, [facility]/pharmacy #[id number], 160, cm, 06/28/19 7:51:00 EST, Height, 87.4, kg, 02/11/19 2:25:00 EDT, Dry Weight Start Date: 07/15/19 Stop Date: 04/10/20 Status: Ordered Entresto 49 mg-51 mg oral tablet 1 tablet, By Mouth, 2 times a day, # 60 tablet, 11 Refills, Maintenance, 05/17/19 16:00:00 EST, Tablet, [facility]/pharmacy #[id number], 1 tablet By Mouth 2 [...]
--- OUTSIDE RECORDS SUMMARY | 2024-02-21 23:20 | XMS_ITS | Continuity of Care Document ---
Author Organization [facility] Address Unknown Care Team Providers Care Electric Freight Car Operator Name Role Phone Jaun Eason DO Primary Care Physician Encounter [facility] Date(s): 11/01/21 - 12/01/21 [facility] Allergies, Adverse Reactions, Alerts Substance Reaction Severity [...] a day, # 60 tablet, Refills 3, Tot. Refills 3, Maintenance, 11/08/21 13:29:00 EDT, Route to Pharmacy Electronically, [facility]/pharmacy #[id number], 160, cm, 11/01/21 14:10:00 EDT, Height, 87.9, kg, 10/04/21 1:04:00 EDT, Dry... Start Date: 11/08/21 Stop Date: 03/08/22 Status: Ordered digoxin 0.125 mg oral tablet 1, tablet, By Mouth, Daily, for 30 days, # 30 tablet, Refills 6, Tot. Refills 6, Physician Stop 02/07/22 10:21:00 EDT, 07/12/21 10:21:00 EDT, Route to Pharmacy Electronically, [facility]/pharmacy #[id number], 160, cm, 06/28/21 10:44:00 EST, Height, 85.9, kg, 03/30... Start Date: 07/12/21 Stop Date: 02/07/22 Status: Ordered Durable Medical Equipment See Instructions, Maintenance, 03/23/21 10:38:00 EST, Supply Start Date: 03/23/21 Status: Ordered Entresto 49 mg-51 mg oral tablet 1 tablet, By Mouth, 2 times a day, # 60 tablet, 5 Refills, Maintenance, 11/11/21 7:16:00 EDT, Tablet, [facility]/pharmacy #[id number], this is an increased dose, 1 tablet By Mouth 2 times a day, 160, cm, 11/10/2210:18:00 EDT, Height, 87.9, kg, 10/04/21 1:04:00 ED... Start Date: 11/11/21 Status: Ordered Fish Oil By Mouth, 0 Refills, Maintenance, 09/07/21 14:53:00 EDT, Partial fill upon patient request if the prescription is for a schedule II opioid drug. Start Date: 09/07/21 Status: Ordered loperamide 2 mg oral capsule 2 mg, 1, capsule, By Mouth, Every 4 hours, PRN, Refills 0, Maintenance, Loose Stool, 10/15/21 9:28:00 EDT, Partial fill upon patient request if the prescription is for a schedule II opioid drug. Start Date: 10/15/21 Status: Ordered medroxyPROGESTERone 5 mg oral tablet 1 tablet = 5 mg, By Mouth, Daily, 0 Refills, Maintenance, 11/30/21 13:58:00 EDT, Partial fill upon patient request if the prescription is for a schedule II opioid drug. Start Date: 11/30/21 Status: Ordered Miconazole 2% Topical Ointment 1 applicator, Topically, Every 12 hours, 0 Refills, Maintenance, Ointment Start Date: 10/15/21 Status: Ordered Nystatin Powder 1 applicator, Topically, 2 times a day, 0 Refills, Maintenance, Powder Start Date: 10/15/21 Status: Ordered Primidone 300 mg, By Mouth, [...] Maintenance,11/30/21 14:12:00 EDT, Route to Pharmacy Electronically, [id number], Partial fill upon patient request [...] 11/30/21 14:13:00 EDT, Route to Pharmacy Electronically, [id number], Partial fill upon... Start Date: 11/30/21 [...] Status: Ordered spironolactone 25 mg oral tablet 12.5 mg, 0.5, tablet, By Mouth, Daily, # 15 tablet, Refills 3, Tot. Refills 3, Maintenance, 11/30/21 16:51:00 EDT, Route to Pharmacy Electronically, [id number], Partial fill upon patient request if the prescription is for a schedule II opioid... Start Date: 11/30/21 Status: Ordered torsemide 20 mg oral tablet 0.5 tablet = 10 mg, By Mouth, Daily, # 15 tablet, 3 Refills, Maintenance, 11/30/21 16:51:00 EDT, [facility]/pharmacy #[id number], Partial fill upon patient request if the prescription is for a schedule II opioid drug., 160, cm, 11/30/21 14:40:00 EDT, Height, 87.9,... Start Date: 11/30/21 Status: Ordered venlafaxine 150 mg oral capsule, extended release TAKE 1 CAPSULE BY MOUTH EVERY DAY WITH FOOD FOR 30 DAYS Start Date: 10/03/21 Status: Ordered Problem List Condition Effective Dates Status Health Status Inform ant Last pap smear 09/10/20 ASCUS with negative HPV(Confirmed) Active Chronic systolic CHF (conges tive heart failure)(Confirmed) Active Essential tremor(Confirmed) Active History of multiple falls(Confirmed) Active Family history of some sort of PERFORATOR cancer in her mother(Confirmed) Active GERD without esophagitis(Confirmed) Active History of pneumonia(Confirmed) Active Hearing impaired(Confirmed) Active History of cardiomyopathy(Confirmed) Active Estrogen excess(Confirmed) Active 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 with comprehension(Confirmed) Active Cognitive impairment(Confirmed) Active Menopausal state since age 50(Confirmed) Active Obese class I(Confirmed) Active Obstructive sleep apnea(Confirmed) Active Postmenopausal bleeding(Confirmed) Active Treatment-emergent central s leep apnea(Confirmed) Active Dry mouth(Confirmed) Active Social History Social History Type Response Smoking Status Former smoker; Other : Quit 2010; entered on: 03/02/16 Sex
--- OUTSIDE RECORDS SUMMARY | 2024-02-21 23:20 | XMS_ITS | Continuity of Care Document ---
Author Organization [facility] Address [address] [place] [address]- Care Team Providers Care Pilot Manager Name Role Phone Arlin HENAO ([facility]), Rinku Bonner Primary Care Ph ysician Encounter [facility] Date(s): 07/01/20 - 07/31/20 [facility] [address] [place] [address]- Allergies, Adverse Reactions, Alerts Substance Reaction Severity [...] 06/28/19 7:40:00 EST, Route to Pharmacy Electronically, [facility]/pharmacy #[id number], this replaces bisoprololthat is unavailable please contact office once back... Start Date: 06/28/19 Stop Date: 08/21/20 Status: Ordered digoxin 0.125 mg oral tablet 125 mcg, 1, tablet, By Mouth, Daily, # 90 tablet, Refills 1, Tot. Refills 1, Maintenance, 07/20/20 9:15:00 EDT, Route to Pharmacy Electronically, [facility]/pharmacy #[id number], 160, cm, 05/27/20 9:55:00 EST, Height, 82.9, kg, 05/06/20 12:35:00 EST, Dry Weight Start Date: 07/20/20 Stop Date: 01/16/21 Status: Ordered Entresto 49 mg-51 mg oral tablet 1 tablet, By Mouth, 2 times a day, # 60 tablet, 11 Refills, Maintenance, 07/01/20 11:14:00 EST, Tablet, [facility]/pharmacy #[id number], 1 tablet By Mouth 2 [...]
--- OUTSIDE RECORDS SUMMARY | 2024-02-21 23:20 | XMS_ITS | Continuity of Care Document ---
Author Organization [facility] Address [address] [place] [address]- Care Team Providers Care Barn Manager Name Role Phone Arlin HENAO ([facility]), Rinku Bonner Primary Care Ph ysician Encounter [facility] Date(s): 04/04/19 - 04/14/19 [facility] [address] [place] [address]- [facility] Attending Physician: Jerod Denton Admitting [...] times a day, # 120 tablet, Refills 5, Tot. Refills 5, Maintenance, 03/21/18 17:24:02 EST, Route to Pharmacy Electronically, [id number], [facility]/pharmacy #[id number], this replaces bisoprolol that is unav... Start Date: 03/21/18 Stop Date: 03/16/19 Status: Ordered digoxin 0.125 mg oral tablet 125 mcg, 1, tablet, By Mouth, Daily, # 90 tablet, Refills 1, Tot. Refills 1, Maintenance, 09/27/18 10:11:07 EDT, Route to Pharmacy Electronically, [id number], [facility]/pharmacy #[id number] Start Date: 09/27/18 Stop Date: 03/26/19 Status: Ordered Entresto 24 mg-26 mg oral tablet 1 tablet, By Mouth, 2 times a day, # 60 tablet, 5 Refills, Maintenance, 05/10/18 10:34:07 EST, Tablet, 1 tablet By Mouth 2 times a day,x30 days Start Date: 05/10/18 Stop Date: 11/06/18 Status: Ordered Problem List Condition Effective Dates Status Health Status Inform ant Chronic systolic CHF (conges tive heart failure)(Confirmed) Active Essential tremor(Confirmed) Active GERD without esophagitis(Confirmed) Active Hearing impaired person(Confirmed) Active H/O cardiomyopathy(Confirmed) Active Right knee pain(Confirmed) Active Tremor(Confirmed) Active Social History Social History Type Response Smoking Status Former smoker; Tobac co user in household: No entered on: 12/29/16 Sex
--- OUTSIDE RECORDS SUMMARY | 2024-02-21 23:20 | XMS_ITS | Continuity of Care Document ---
Author Organization [facility] Address [address] [place] [address]- Care Team Providers Care Psychiatric Technician Name Role Phone Arlin HENAO ([facility]), Rinku Bonner Primary Care ysician Encounter [facility] Date(s): 05/06/20 - 05/06/[address] [address]- Encounter Diagnosis Slurred speech(Final) - 05/06/20 Discharge Disposition: A-D/C Home Attending Physician: Jeremie Mcclelland DO Admitting Physician: Jeremie Mcclelland DO Referring Physician: Not on Staff, Referring [...] 06/28/19 7:40:00 EST, Route to Pharmacy Electronically, [facility]/pharmacy #[id number], this replaces bisoprololthat is unavailable please contact office once back... Start Date: 06/28/19 Stop Date: 08/21/20 Status: Ordered digoxin 0.125 mg oral tablet 125 mcg, 1, tablet, By Mouth, Daily, # 90 tablet, Refills 2, Tot. Refills 2, Maintenance, 07/15/19 8:57:00 EDT, Route to Pharmacy Electronically, [facility]/pharmacy #[id number], 160, cm, 06/28/19 7:51:00 EST, Height, 87.4, kg, 02/11/19 2:25:00 EDT, Dry Weight Start Date: 07/15/19 Stop Date: 04/10/20 Status: Ordered Entresto 49 mg-51 mg oral tablet 1 tablet, By Mouth, 2 times a day, # 60 tablet, 11 Refills, Maintenance, 05/17/19 16:00:00 EST, Tablet, [facility]/pharmacy #[id number], 1 tablet By Mouth 2 [...] Active Right knee pain(Confirmed) Active Tremor(Confirmed) Active Vital Signs Most recent to oldest [Reference Range]: 1 2 3 Height 160 cm (05/06/20 12:35 PM) 160 cm (05/06/20 12:13 PM) 160 cm (05/06/20 10:50 AM) Weight 82.9 kg (05/06/20 12:35 PM) 82.9 kg (05/06/20 12:13 PM) 82.9 kg (05/06/20 10:50 AM) Oxygen Saturation [94-100 %] 97 % (05/06/20 12:35 PM) 98 % (05/06/20 12:13 PM) Pulse Rate [55-90 bpm] 68 bpm (05/06/20 12:35 PM) 82 bpm (05/06/20 12:13 PM) 75 bpm (05/06/20 10:50 AM) Body Mass Index [18.5-24.99] 32.38 *>HHI* (05/06/20 12:35 PM) 32.38 *>HHI* (05/06/20 12:13 PM) Blood Pressure [90-138/55-84 mm Hg] 103/57mm Hg (05/06/20 12:35 PM) 145/71mm Hg *H* (05/06/20 12:13 PM) Respiratory Rate [16-30 br/min] 20 br/min (05/06/20 12:35 PM) 18 br/min (05/06/20 12:13 PM) 16 br/min (05/06/20 10:50 AM) Temperature [96.8-100.4 DegF] 97.8 DegF (05/06/20 12:35 PM) 98.4 DegF (05/06/20 12:13 PM) Mode of Delivery (Oxygen) Room air (05/06/20 12:35 PM) Room air (05/06/20 12:13 PM) Blood pressure sites Arm, left (05/06/20 12:35 PM) Arm, left (05/06/20 12:13 PM) Temperature Route Temporal (05/06/20 12:35 PM) Oral (05/06/20 12:13 PM) Dry Weight 82.9 kg (05/06/20 12:35 PM) 82.9 kg (05/06/20 12:13 PM) 82.9 kg (05/06/20 10:50 AM) Dry Weight Obtained Via Standing scale (05/06/20 10:50 AM) Social History Social History Type Response Smoking Status Former smoker; Tobac co user in household: No entered on: 12/29/16 Sex
--- OUTSIDE RECORDS SUMMARY | 2024-02-21 23:20 | XMS_ITS | Continuity of Care Document ---
Author Organization [facility] Address [address] [place] [address]- Care Team Providers Care Geriatric Nurse Assistant Name Role Phone Arlin HENAO ([facility]), Rinku Bonner Primary Care Ph ysician Encounter [facility] [id number] Date(s): 12/16/19 - 12/16/[address] [address]- [facility] Discharge Disposition: A-D/C Home Attending Physician: Michael Lyman MD Admitting Physician: Michael Lyman MD Referring Physician: Michael Lyman MD Allergies, Adverse Reactions, [...] 06/28/19 7:40:00 EST, Route to Pharmacy Electronically, [facility]/pharmacy #[id number], this replaces bisoprololthat is unavailable please contact office once back... Start Date: 06/28/19 Stop Date: 08/21/20 Status: Ordered digoxin 0.125 mg oral tablet 125 mcg, 1, tablet, By Mouth, Daily, # 90 tablet, Refills 2, Tot. Refills 2, Maintenance, 07/15/19 8:57:00 EDT, Route to Pharmacy Electronically, [facility]/pharmacy #[id number], 160, cm, 06/28/19 7:51:00 EST, Height, 87.4, kg, 02/11/19 2:25:00 EDT, Dry Weight Start Date: 07/15/19 Stop Date: 04/10/20 Status: Ordered Entresto 49 mg-51 mg oral tablet 1 tablet, By Mouth, 2 times a day, # 60 tablet, 11 Refills, Maintenance, 05/17/19 16:00:00 EST, Tablet, [facility]/pharmacy #[id number], 1 tablet By Mouth 2 times [...] Active Right knee pain(Confirmed) Active Tremor(Confirmed) Active Procedures Procedure Date Related Diagnosis Body Site Status Colonoscopy 12/16/19 Completed Vital Signs Most recent to oldest [Reference Range]: 1 2 3 Height 158 cm (12/16/19 9:42 AM) Oxygen Saturation [94-100 %] 99 % (12/16/19 11:51 AM) 97 % (12/16/19 11:44 AM) 97 % (12/16/19 11:39 AM) Pulse Rate [55-90 bpm] 60 bpm (12/16/19 9:42 AM) Blood Pressure [90-138/55-84 mm Hg] 110/54mm Hg (12/16/19 11:51 AM) 95/41mm Hg (12/16/19 11:44 AM) 95/41mm Hg (12/16/19 11:39 AM) Respiratory Rate [16-30 br/min] 13 br/min *L* (12/16/19 11:51 AM) 16 br/min (12/16/19 11:44 AM) 17 br/min (12/16/19 11:39 AM) Temperature [96.8-100.4 DegF] 97.0 DegF (12/16/19 11:34 AM) 98.1 DegF (12/16/19 9:42 AM) Mode of Delivery (Oxygen) Room air (12/16/19 11:34 AM) Room air (12/16/19 9:42 AM) Blood pressure sites Arm, right (12/16/19 9:42 AM) Temperature Route Temporal (12/16/19 11:34 AM) Temporal (12/16/19 9:42 AM) Dry Weight 84 kg (12/16/19 9:42 AM) Social History Social History Type Response Smoking Status Former smoker; Tobac co user in household: No entered on: 12/29/16 Sex
--- OUTSIDE RECORDS SUMMARY | 2024-02-21 23:20 | XMS_ITS | Continuity of Care Document ---
Author Organization [facility] Address [address] [facility], [address], [address] [place] [address]- Care Team Providers Care Senior Net Engineer Name Role Phone Jaun Eason DO Primary Care Physician Encounter [facility] Date(s): 06/28/22 - 07/28/22 [facility] [address], [address], [address] [place] [id number] Allergies, Adverse Reactions, Alerts Substance Reaction Severity [...] tablet, Refills 3, Tot. Refills 3, Maintenance, 06/28/22 10:45:00 EST, Route to Pharmacy Electronically, [facility]/pharmacy #[id number], 160, cm, 05/06/22 10:53:00 EST, Height, 87.3, kg, 03/27/22 1:36:00 EST, Dry Weight Start Date: 06/28/22 Stop Date: 10/26/22 Status: Ordered Durable Medical Equipment See Instructions, Maintenance, 03/23/21 10:38:00 EST, Supply Start Date: 03/23/21 Status: Ordered Entresto 49 mg-51 mg oral tablet 1 tablet, By Mouth, 2 times a day, # 28 tablet, 0 Refills, Maintenance, 07/15/22 8:37:00 EDT, [facility]/pharmacy #[id number], 1 tablet By [...] tablet, By Mouth, Daily, # 30 tablet, 5 Refills, Maintenance, 06/07/22 7:57:00 EST, [id number], 160, cm, 05/06/22 10:53:00 EST, Height, 87.3, kg, 03/27/22 1:36:00 EST, Dry Weight Start Date: 06/07/22 Status: Ordered Primidone 300 mg, By Mouth, 3 times a day, Refills 0, Maintenance, 11/30/21 14:42:00 EDT, Partial fill upon patient request if the prescription is for a schedule II opioid drug. Start Date: 11/30/21 Status: Ordered primidone 250 mg oral tablet 250 mg, 1, tablet, By Mouth, Daily at bedtime, # 30 tablet, Refills 5, Tot. Refills 5, Maintenance,06/28/22 15:09:00 EST, Route to Pharmacy Electronically, [facility]/pharmacy #[id number], Partial fill upon patient request if the prescription is for a schedule II... Start Date: 06/28/22 Stop Date: 12/25/22 Status: Ordered primidone 50 mg oral tablet 50 mg, 1, tablet, By Mouth, Daily at bedtime, take with primidone 250 mg, for total dos eof 300 mg hs, # 30 tablet, Refills 5, Tot. Refills 5, Maintenance, 06/28/22 15:09:00 EST, Route to Pharmacy Electronically, [facility]/pharmacy #[id number], Partial fill upon... Start Date: 06/28/22 Stop Date: 12/25/22 Status: Ordered spironolactone 25 mg oral tablet 1, tablet, By Mouth, Daily, # 90 tablet, Refills 1, Maintenance, 01/02/22 8:06:00 EDT, Route to Pharmacy Electronically, [facility], 160, cm, 12/24/21 10:28:00 EDT, Height, 87.9, kg, 10/04/21 1:04:00 EDT, Dry Weight Start Date: 01/02/22 Status: Ordered torsemide 20 mg oral tablet 0.5 tablet = 10 mg, By Mouth, Daily, # 15 tablet, 3 Refills, Maintenance, 11/30/21 16:51:00 EDT, [facility]/pharmacy #[id number], Partial fill upon patient request if the prescription is for a schedule II opioid drug., 160, cm, 11/30/21 14:40:00 EDT, Height, 87.9,... Start Date: 11/30/21 Status: Ordered torsemide 20 mg oral tablet 0.5 tablet, By Mouth, Daily, # 15 tablet, 3 Refills, Maintenance, 03/23/22 8:36:00 EST, [facility], 160, cm, 01/13/22 11:06:00 EDT, Height, 87.9, [...] capsule, 3 Refills, Maintenance, 04/10/20 13:57:00 EST, [facility]/pharmacy #[id number], 158, cm, 02/24/20 9:14:00 EST, Height, [...] Active Family history of some sort of MEDICAL CERTIFICATION SPECIALIST cancer in her mother Confirmed Active [...] Team Personnel Name: Loretta Schwab RN Position: [facility] RN Member Role: Primary Care Nurse Name: Jaun Eason DO Position: [facility] Physician (General Medicine) Member Role: PCP Address: Address: [address] [place], [place] [id number] [place] [address]- Name: Elsa Tee RN Position: [facility] RN Member Role: Primary Care Nurse Name: Tesha Matias NP Position: Reference Physician Member Role: Primary Care Nurse Address: Address: [address] [place] [address]- Name: Robert Cherry RN Position: [facility] RN Member Role: Primary Care Nurse Name: Elina Greene LPN Position: [facility] RN Member Role: Primary Care Nurse Name: Lamar Talbert RN Position: [facility] RN Supv Member Role: Primary Care Nurse Name: Rafael Ho RN Position: [facility] ED RN W/OE and Tasks Member Role: Primary Care Nurse Name: Kayley Baker RN Position: S RN Member Role: Primary Care Nurse Name: Christine Mays RN Position: S RN Member Role: Primary Care Nurse Name: Farzana Perez RN Position: S RN Member Role: Primary Care Nurse Care Team Related Persons Name: RONAK RIOS Address: home [address] [place] [address] Name: KENA RIOS Address: home [address] [place] [address] [place] [address] Name: RANDALL RIOS Address: home [address] [place] [address] [place] [address]
--- OUTSIDE RECORDS SUMMARY | 2024-02-21 23:20 | XMS_ITS | Continuity of Care Document ---
Author Organization [facility] Address [address] [place] [phone]- Care Team Providers Care Medical Payment Poster Name Role Phone EbenezerrubinaJaun obregon DO Primary Care Physician Encounter [facility] [place] Date(s): 07/12/21 - 08/11/21 [facility] [address] [place] [phone]- [place] Allergies, Adverse Reactions, Alerts Substance Reaction [...] 10/23/20 12:37:00 EDT, Route to Pharmacy Electronically, [id number], 160, cm, 09/10/20 15:03:00 EDT, Height, 73.4, kg, 09/10/20 9:18:00 EDT, Dry... Start Date: 10/23/20 Status: Ordered digoxin 0.125 mg oral tablet 1, tablet, By Mouth, Daily, for 30 days, # 30 tablet, Refills 6, Tot. Refills 6, Physician Stop 02/07/22 10:21:00 EDT, 07/12/21 10:21:00 EDT, Route to Pharmacy Electronically, [facility]/pharmacy #[id number], 160, cm, 06/28/21 10:44:00 EST, Height, [...] 04/02/21 14:34:00 EST, Route to Pharmacy Electronically, [facility]/pharmacy #[id number], Partial fill upon patient request if the prescription is for a schedule II opioid dr... Start Date: 04/02/21 Stop Date: 06/01/21 Status: Ordered Entresto 49 mg-51 mg oral tablet 1 tablet, By Mouth, 2 times a day, # 60 tablet, 5 Refills, Maintenance, 07/05/21 10:48:00 EDT, Tablet, [facility]/pharmacy #[id number], 1 tablet By Mouth 2 times a day,x30 days, 160, cm, 06/28/21 10:44:00 EST, Height, 85.9, kg, 03/30/21 14:08:00 EST, Dry Weight Start Date: 07/05/21 Stop Date: 01/01/22 Status: Ordered primidone 50 mg oral tablet See Instructions, 4 tablet By Mouth at bedtime, or as directed, # 120 tablet, Refills 4, Tot. Refills 4, Maintenance, 06/03/21 15:49:00 EST, Instructions Replace Required Details, Route to Pharmacy Electronically, [facility]/pharmacy #[id number], Partial fill upon... Start Date: 06/03/21 Status: Ordered Provera 5 mg oral tablet 1 tablet = 5 mg, By Mouth, Daily, # 90 tablet, 4 Refills, Maintenance, 06/08/21 9:18:00 EST, Tablet, [facility]/pharmacy #[id number], Partial fill upon patient request if the prescription is for a schedule II opioid drug., 160, cm, 06/08/21 8:40:00 EST, Height, 85... Start Date: 06/08/21 Status: Ordered Problem List Condition Effective Dates Status Health Status Inform ant Last pap smear 09/10/20 ASCUS with negative HPV(Confirmed) Active Chronic systolic CHF (conges tive heart failure)(Confirmed) Active Essential tremor(Confirmed) Active History of multiple falls(Confirmed) Active Family history of some sort of ROLLER HELPER cancer in her mother(Confirmed) Active GERD without [...]
--- OUTSIDE RECORDS SUMMARY | 2024-02-21 23:20 | XMS_ITS | Continuity of Care Document ---
Author Organization [facility] Address Unknown Care Team Providers Care Director Of Curriculum Name Role Phone Jaun Eason DO Primary Care Physician Encounter [facility] [place] Date(s): 08/20/21 - 09/19/21 [facility] Allergies, Adverse Reactions, Alerts Substance [...] 10/23/20 12:37:00 EDT, Route to Pharmacy Electronically, [id number], 160, cm, 09/10/20 15:03:00 EDT, Height, 73.4, kg, 09/10/20 9:18:00 EDT, Dry... Start Date: 10/23/20 Status: Ordered digoxin 0.125 mg oral tablet 1, tablet, By Mouth, Daily, for 30 days, # 30 tablet, Refills 6, Tot. Refills 6, Physician Stop 02/07/22 10:21:00 EDT, 07/12/21 10:21:00 EDT, Route to Pharmacy Electronically, [facility]/pharmacy #[id number], 160, cm, 06/28/21 10:44:00 EST, [...] 04/02/21 14:34:00 EST, Route to Pharmacy Electronically, [facility]/pharmacy #[id number], Partial fill upon patient request if the prescription is for a schedule II opioid dr... Start Date: 04/02/21 Stop Date: 06/01/21 Status: Ordered Entresto 49 mg-51 mg oral tablet 1 tablet, By Mouth, 2 times a day, # 60 tablet, 5 Refills, Maintenance, 07/05/21 10:48:00 EDT, Tablet, [facility]/pharmacy #[id number], 1 tablet By Mouth 2 times a day,x30 days, 160, cm, 06/28/21 10:44:00 EST, Height, 85.9, kg, 03/30/21 14:08:00 EST, Dry Weight Start Date: 07/05/21 Stop Date: 01/01/22 Status: Ordered Fish Oil By Mouth, 0 Refills, Maintenance, 09/07/21 14:53:00 EDT, Partial fill upon patient request if the prescription is for a schedule II opioid drug. Start Date: 09/07/21 Status: Ordered primidone 250 mg oral tablet 250 mg, 1, tablet, By Mouth, Daily at bedtime, # 30 tablet, Refills 6, Tot. Refills 6, Maintenance,09/07/21 15:17:00 EDT, Route to Pharmacy Electronically, [facility]/pharmacy #[id number], Partial fill upon patient request if the prescription is for a schedule II... Start Date: 09/07/21 Stop Date: 04/05/22 Status: Ordered Provera 5 mg oral tablet 1 tablet = 5 mg, By Mouth, Daily, # 90 tablet, 4 Refills, Maintenance, 06/08/21 9:18:00 EST, Tablet, [facility]/pharmacy #[id number], Partial fill upon patient request if the [...] Active Family history of some sort of SOAKER HIDES cancer in her mother(Confirmed) Active GERD without [...]
--- OUTSIDE RECORDS SUMMARY | 2024-02-21 23:20 | XMS_ITS | Continuity of Care Document ---
Author Organization [facility] Address [address] [place] [phone]- Care Team Providers Care Wheelchair Van Driver Name Role Phone Jaun Eason DO Primary Care Physician Encounter [facility] Date(s): 02/17/23 - 03/19/[address] [facility] [address] [address]- Attending Physician: Jerod Denton Admitting Physician: Jerod Denton Referring Physician: AdmJerod weber Allergies, Adverse Reactions, Alerts Substance Reaction Severity [...] tablet, 0 Refills, Maintenance, 07/15/22 8:37:00 EDT, [facility]/pharmacy #[id number], 1 tablet By Mouth 2 [...] Daily, # 30 tablet, 5 Refills, Maintenance, 12/07/22 16:30:00 EDT, [facility], 160, cm, 11/11/22 9:32:00 EDT, Height, 89.9, kg, 11/11/22 9:32:00 EDT, Dry Weight Start Date: 12/07/22 Status: Ordered primidone 250 mg oral tablet 250 mg, 1, tablet, By Mouth, Daily at bedtime, for 30 days, # 90 tablet, Refills 3, Tot. Refills 3,Hard Stop 10/21/23 15:09:00 EDT, 06/23/23 15:09:00 EST, Route to Pharmacy Electronically, [facility]; [facility], Partial fill upon patient request if... Start Date: 06/23/23 Stop Date: 10/21/23 Status: Ordered primidone 250 mg oral tablet 250 mg, 1, tablet, By Mouth, Daily at bedtime, for 30 days, # 30 tablet, Refills 5, Tot. Refills 5,Hard Stop 06/23/23 15:09:00 EST, 12/25/22 15:09:00 EDT, Route to Pharmacy Electronically, [facility]; [facility], Partial fill upon patient [...] tablet, Refills 2, Tot. Refills 2, Maintenance, 08/18/22 12:53:00 EDT, Route to Pharmacy Electronically, [facility], 160, cm, 08/03/22 13:23:00 EDT, Height, 87.3, kg, 03/27/22 1:36:00 EST, Dry Weight Start Date: 08/18/22 Stop Date: 05/15/23 Status: Ordered torsemide 20 mg oral tablet 0.5 tablet, By Mouth, Daily, # 15 tablet, 3 Refills, Maintenance, 08/01/22 8:02:00 EDT, [facility], 160, cm, 05/06/22 10:53:00 EST, Height, 87.3, [...] capsule, 3 Refills, Maintenance, 04/10/20 13:57:00 EST, [facility]/pharmacy #[id number], 158, cm, 02/24/20 9:14:00 EST, [...] Active Family history of some sort of AIRSET MOLDER cancer in her mother Confirmed Active GERD [...] Team Personnel Name: Loretta Schwab RN Position: [facility] RN Member Role: Primary Care Nurse Name: Jaun Eason DO Position: [facility] Physician - Primary Care Member Role: PCP Address: Address: [address] [place] [phone]- Name: Elsa Tee RN Position: [facility] RN Member Role: Primary Care Nurse Name: Tesha Matias NP Position: Reference Physician Member Role: Primary Care Nurse Address: Address: [address] [place] [address] Name: Robert Cherry RN Position: [facility] RN Member Role: Primary Care Nurse Name: Elina Greene LPN Position: [facility] RN Member Role: Primary Care Nurse Name: Lamar Talbert RN Position: [facility] RN Supv Member Role: Primary Care Nurse Name: Rafael Ho RN Position: [facility] ED RN W/OE and Tasks Member Role: Primary Care Nurse Name: Kayley Baker RN Position: [facility] RN Member Role: Primary Care Nurse Name: Christine Mays RN Position: [facility] RN Member Role: Primary Care Nurse Name: Farzana Perez RN Position: [facility] RN Member Role: Primary Care Nurse Care Team Related Persons Name: RONAK RIOS Address: [address] [place] [address] Name: KENA RIOS Address: [address] [place] [address] Name: BLANCA RANDALL Address: [address] [place] [address]
--- OUTSIDE RECORDS SUMMARY | 2024-02-21 23:20 | XMS_ITS | Continuity of Care Document ---
Author Organization [facility] Address [address] [place] [phone]- Care Team Providers Care Public Relations Specialist Name Role Phone Arlin HENAO ([facility]), Rinku Bonner Primary Care Ph ysician [place] [facility] 10/10/19 - 11/09/19 [facility] [address] [place] [address]- [facility] Attending Physician: AdmJerod weber Admitting Physician: AdmtrJerod Referring Physician: [id number] Allergies, Adverse Reactions, Alerts Substance Reaction Severity [...] 06/28/19 7:40:00 EST, Route to Pharmacy Electronically, [facility]/pharmacy #[id number], this replaces bisoprololthat is unavailable please contact office once back... Start Date: 06/28/19 Stop Date: 08/21/20 Status: Ordered digoxin 0.125 mg oral tablet 125 mcg, 1, tablet, By Mouth, Daily, # 90 tablet, Refills 2, Tot. Refills 2, Maintenance, 07/15/19 8:57:00 EDT, Route to Pharmacy Electronically, [facility]/pharmacy #[id number], 160, cm, 06/28/19 7:51:00 EST, Height, 87.4, kg, 02/11/19 2:25:00 EDT, Dry Weight Start Date: 07/15/19 Stop Date: 04/10/20 Status: Ordered Entresto 49 mg-51 mg oral tablet 1 tablet, By Mouth, 2 times a day, # 60 tablet, 11 Refills, Maintenance, 05/17/19 16:00:00 EST, Tablet, [facility]/pharmacy #[id number], 1 tablet By [...]
--- OUTSIDE RECORDS SUMMARY | 2024-02-21 23:20 | XMS_ITS | Continuity of Care Document ---
Author Organization [facility] [employer] [facility] Address [address] [place] [address], [address] [place] [address]- Care Team Providers Care Safe Expert Name Role Phone Jaun Eason DO Primary [facility] Phys[id number] Date[facility]s): 11/10/21 - 11/17/21 [facility] [employer] [facility] [address] [facility] [place], [place] [address] Attending Physician: Makeda HENAO, Twyla Jalloh Referring Physician: Harrison Shearer MD Allergies, Adverse Reactions, Alerts Substance Reaction [...] 11/08/21 13:29:00 EDT, Route to Pharmacy Electronically, [facility]/pharmacy #[id number], 160, cm, 11/01/21 14:10:00 EDT, Height, 87.9, kg, 10/04/21 1:04:00 EDT, Dry... Start Date: 11/08/21 Stop Date: 03/08/22 Status: Ordered digoxin 0.125 mg oral tablet 1, tablet, By Mouth, Daily, for 30 days, # 30 tablet, Refills 6, Tot. Refills 6, Physician Stop 02/07/22 10:21:00 EDT, 07/12/21 10:21:00 EDT, Route to Pharmacy Electronically, [facility]/pharmacy #[id number], 160, cm, 06/28/21 10:44:00 EST, Height, 85.9, kg, 03/30... Start Date: 07/12/21 Stop Date: 02/07/22 Status: Ordered Durable Medical Equipment See Instructions, Maintenance, 03/23/21 10:38:00 EST, Supply Start Date: 03/23/21 Status: Ordered Entresto 49 mg-51 mg oral tablet 1 tablet, By Mouth, 2 times a day, # 60 tablet, 5 Refills, Maintenance, 11/11/21 7:16:00 EDT, Tablet, [facility]/pharmacy #[id number], this is an increased dose, [...] opioid drug. Start Date: 10/15/21 Status: Ordered Miconazole 2% Topical Ointment 1 applicator, Topically, Every 12 hours, 0 Refills, Maintenance, Ointment Start Date: 10/15/21 Status: Ordered Nystatin Powder 1 applicator, Topically, 2 times a day, 0 Refills, Maintenance, Powder Start Date: 10/15/21 Status: Ordered primidone 250 mg oral tablet 250 mg, 1, tablet, By Mouth, Daily at bedtime, # 30 tablet, Refills 6, Tot. Refills 6, Maintenance,09/07/21 15:17:00 EDT, Route to Pharmacy Electronically, [facility]/pharmacy #[id number], Partial fill upon patient request if the prescription is for a schedule II... Start Date: 09/07/21 Stop Date: 04/05/22 Status: Ordered Provera 5 mg oral tablet 1 tablet = 5 mg, By Mouth, Daily, # 90 tablet, 4 Refills, Maintenance, 06/08/21 9:18:00 EST, Tablet, [facility]/pharmacy #[id number], Partial fill upon patient request if the prescription is for a schedule II opioid drug., 160, cm, 06/08/21 8:40:00 EST, Height, 85... 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 with comprehension(Confirmed) Active Cognitive impairment(Confirmed) Active Menopausal state since age 50(Confirmed) Active Obese class I(Confirmed) Active Obstructive sleep apnea(Confirmed) Active Postmenopausal bleeding(Confirmed) Active Treatment-emergent central s leep apnea(Confirmed) Active Dry mouth(Confirmed) Active Vital Signs Most recent to oldest [Reference Range]: 1 Height 160 cm (11/10/21 11:18 AM) Weight 81.81 kg (11/10/21 11:18 AM) Body Mass Index [18.5-24.99] 31.96 *>HHI* (11/10/21 11:18 AM) Blood Pressure [90-138/55-84 mm Hg] 112/ 60mm Hg (11/10/21 11:18 AM) Blood pressure sites Arm, right (11/10/21 11:18 AM) Weight Obtained Via Standing scale (11/10/21 11:18 AM) Social History Social History Type Response Smoking Status Former smoker; Other : Quit 2010; entered on: 03/02/16 Sex
--- OUTSIDE RECORDS SUMMARY | 2024-02-21 23:21 | XMS_ITS | Continuity of Care Document ---
Author Organization [facility] Address [address] [place] [phone]- Care Team Providers Care Surgical Scrub Technologist Name Role Phone EbenezereagleJaun piña DO Primary Care Physician Encounter [facility] [place] Date(s): 02/03/22 - 03/05/22 [facility] [address] [place] [phone]- [place] Allergies, Adverse Reactions, Alerts Substance Reaction [...] 11/08/21 13:29:00 EDT, Route to Pharmacy Electronically, [facility]/pharmacy #[id number], 160, cm, 11/01/21 14:10:00 EDT, Height, 87.9, kg, 10/04/21 1:04:00 EDT, Dry... Start Date: 11/08/21 Stop Date: 03/08/22 Status: Ordered digoxin 0.125 mg oral tablet 125 mcg, 1, tablet, By Mouth, Daily, # 30 tablet, Refills 11, Tot. Refills 11, Maintenance, 02/14/22 7:26:00 EDT, Route to Pharmacy Electronically, [facility]/pharmacy #[id number], Partial fill upon patient request if the prescription is for a schedule II opioid d... Start Date: 02/14/22 Status: Ordered Durable Medical Equipment See Instructions, Maintenance, 03/23/21 10:38:00 EST, Supply Start Date: 03/23/21 Status: Ordered Entresto 49 mg-51 mg oral tablet 1 tablet, By Mouth, 2 times a day, # 60 tablet, 5 Refills, Maintenance, 11/11/21 7:16:00 EDT, Tablet, [facility]/pharmacy #[id number], this is an increased dose, 1 [...] Maintenance,11/30/21 14:12:00 EDT, Route to Pharmacy Electronically, [facility]/pharmacy #[id number], Partial fill upon patient request if [...] 11/30/21 14:13:00 EDT, Route to Pharmacy Electronically, [facility]/pharmacy #[id number], Partial fill upon... Start Date: 11/30/21 Stop Date: 05/29/22 Status: Ordered Provera 5 mg oral tablet 1 tablet = 5 mg, By Mouth, Daily, # 90 tablet, 4 Refills, Maintenance, 06/08/21 9:18:00 EST, Tablet, [facility]/pharmacy #[id number], Partial fill upon patient request if the prescription is for a schedule II opioid drug., 160, cm, 06/08/21 8:40:00 EST, Height, 85... Start Date: 06/08/21 Status: Ordered spironolactone 25 mg oral tablet 1, tablet, By Mouth, Daily, # 90 tablet, Refills 1, Maintenance, 01/02/22 8:06:00 EDT, Route to Pharmacy Electronically, [id number], 160, cm, 12/24/21 10:28:00 EDT, Height, 87.9, kg, 10/04/21 1:04:00 EDT, Dry Weight Start Date: 01/02/22 Status: Ordered torsemide 20 mg oral tablet 0.5 tablet = 10 mg, By Mouth, Daily, # 15 tablet, 3 Refills, Maintenance, 11/30/21 16:51:00 EDT, [facility]/pharmacy #[id number], Partial fill upon patient request if [...] capsule, 3 Refills, Maintenance, 04/10/20 13:57:00 EST, [facility]/pharmacy #[id number], 158, cm, 02/24/20 9:14:00 EST, Height, [...] Active Family history of some sort of VENDING MACHINE COIN COLLECTOR cancer in her mother Confirmed Active GERD [...] Care Team Personnel Name: Jania Cadet Position: [facility] RN Member Role: Primary Care Nurse Name: Loretta Schwab RN Position: [facility] AMB Nurse Member Role: Primary Care Nurse Name: Jania Richmond RN Position: [facility] RN Member Role: Primary Care Nurse Name: Jaun Eason DO Position: [facility] Physician (General Medicine) Member Role: PCP Address: Address: [address] [place] [phone]- Name: Junior Pearl RN Position: [facility] RN Member Role: Primary Care Nurse Name: Elsa Tee RN Position: [facility] RN Member Role: Primary Care Nurse Name: Tesha Matias NP Position: Reference Physician Member Role: Primary Care Nurse Address: Address: [address] [place] [phone]- Name: Robert Cherry RN Position: [facility] RN Member Role: Primary Care Nurse Name: Elina Greene LPN Position: [facility] RN Member Role: Primary Care Nurse Name: Lamar Talbert RN Position: [facility] RN Member Role: Primary Care Nurse Name: Rafael Ho RN Position: [facility] ED RN W/OE and Tasks Member Role: Primary Care Nurse Name: Kayley Baker RN Position: [facility] RN Member Role: Primary Care Nurse Name: Christine Mays RN Position: [facility] RN Member Role: Primary Care Nurse Name: Farzana Perez Position: [facility] RN Member Role: Primary Care Nurse Care Team Related Persons Name: RIOS, RONAK Address: [address] [place] [address] Name: KENA RIOS Address: home [address] [place] [address] Name: RANDALL RIOS Address: [address] [place] [address]
--- OUTSIDE RECORDS SUMMARY | 2024-02-21 23:21 | XMS_ITS | Continuity of Care Document ---
Author Organization [facility] Address [address] [place] [address]- Care Team Providers Care Claims Administrator Name Role Phone Arlin HENAO ([facility]), Rinku Bonner Primary Care Ph ysician Encounter [facility] Date(s): 07/22/19 - 10/25/19 [facility] [place] [address] [place] [address]- [facility] Attending Physician: Luiz Christian MD Referring Physician: Sherita Oliveros MD Allergies, Adverse Reactions, Alerts Substance Reaction [...] 06/28/19 7:40:00 EST, Route to Pharmacy Electronically, [facility]/pharmacy #[id number], this replaces bisoprololthat is unavailable please contact office once back... Start Date: 06/28/19 Stop Date: 08/21/20 Status: Ordered digoxin 0.125 mg oral tablet 125 mcg, 1, tablet, By Mouth, Daily, # 90 tablet, Refills 2, Tot. Refills 2, Maintenance, 07/15/19 8:57:00 EDT, Route to Pharmacy Electronically, [facility]/pharmacy #[id number], 160, cm, 06/28/19 7:51:00 EST, Height, 87.4, kg, 02/11/19 2:25:00 EDT, Dry Weight Start Date: 07/15/19 Stop Date: 04/10/20 Status: Ordered Entresto 49 mg-51 mg oral tablet 1 tablet, By Mouth, 2 times a day, # 60 tablet, 11 Refills, Maintenance, 05/17/19 16:00:00 EST, Tablet, [facility]/pharmacy #[id number], 1 tablet By [...]
--- OUTSIDE RECORDS SUMMARY | 2024-02-21 23:21 | XMS_ITS | Continuity of Care Document ---
Author Organization [facility] Address [address] [place] [address]- Care Team Providers Care Haircutter Name Role Phone EbenezereagleJaun piña DO Primary Care Physician Encounter [facility] Date(s): 06/28/22 - 07/28/22 [facility] [address] [place] [address]- [place] Allergies, Adverse Reactions, Alerts Substance Reaction [...] 06/28/22 10:45:00 EST, Route to Pharmacy Electronically, [facility]/pharmacy #[id number], 160, cm, 05/06/22 10:53:00 EST, Height, 87.3, kg, 03/27/22 1:36:00 EST, Dry Weight Start Date: 06/28/22 Stop Date: 10/26/22 Status: Ordered Durable Medical Equipment See Instructions, Maintenance, 03/23/21 10:38:00 EST, Supply Start Date: 03/23/21 Status: Ordered Entresto 49 mg-51 mg oral tablet 1 tablet, By Mouth, 2 times a day, # 28 tablet, 0 Refills, Maintenance, 07/15/22 8:37:00 EDT, [facility]/pharmacy #[id number], 1 tablet By Mouth 2 times [...] Refills, Maintenance, 06/07/22 7:57:00 EST, [id number], 160, cm, 05/06/22 10:53:00 EST, Height, 87.3, [...] Maintenance,06/28/22 15:09:00 EST, Route to Pharmacy Electronically, [facility]/pharmacy #[id number], Partial fill upon patient request if [...] 06/28/22 15:09:00 EST, Route to Pharmacy Electronically, [facility]/pharmacy #[id number], Partial fill upon... Start Date: 06/28/22 Stop Date: 12/25/22 Status: Ordered spironolactone 25 mg oral tablet 1, tablet, By Mouth, Daily, # 90 tablet, Refills 1, Maintenance, 01/02/22 8:06:00 EDT, Route to Pharmacy Electronically, [facility], 160, cm, 12/24/21 10:28:00 EDT, Height, 87.9, kg, 10/04/21 1:04:00 EDT, Dry Weight Start Date: 01/02/22 Status: Ordered torsemide 20 mg oral tablet 0.5 tablet = 10 mg, By Mouth, Daily, # 15 tablet, 3 Refills, Maintenance, 11/30/21 16:51:00 EDT, [facility]/pharmacy #[id number], Partial fill upon patient request if the prescription is for a schedule II opioid drug., 160, cm, 11/30/21 14:40:00 EDT, Height, 87.9,... Start Date: 11/30/21 Status: Ordered torsemide 20 mg oral tablet 0.5 tablet, By Mouth, Daily, # 15 tablet, 3 Refills, Maintenance, 03/23/22 8:36:00 EST, [id number], 160, cm, 01/13/22 11:06:00 EDT, Height, 87.9, [...] capsule, 3 Refills, Maintenance, 04/10/20 13:57:00 EST, [facility]/pharmacy #[id number], 158, cm, 02/24/20 9:14:00 EST, Height, [...] Active Family history of some sort of CLIENT SERVICE EXECUTIVE cancer in her mother Confirmed Active GERD [...] Team Personnel Name: Loretta Schwab RN Position: [facility] RN Member Role: Primary Care Nurse Name: Jaun Eason DO Position: [facility] Physician (General Medicine) Member Role: PCP Address: Address: [address] [place], [place] [id number] [place], [place] [address] Name: Elsa Tee RN Position: [facility] RN Member Role: Primary Care Nurse Name: Tesha Matias NP Position: Reference Physician Member Role: Primary Care Nurse Address: Address: [address] [place] [address]- Name: Robert Cherry RN Position: [facility] RN Member Role: Primary Care Nurse Name: Elina Greene LPN Position: [facility] RN Member Role: Primary Care Nurse Name: Lamar Talbert RN Position: [facility] RN Supv Member Role: Primary Care Nurse Name: Rafael Ho RN Position: [facility] ED RN W/OE and Tasks Member Role: Primary Care Nurse Name: Kayley Baker RN Position: [facility] RN Member Role: Primary Care Nurse Name: Christine Mays RN Position: [facility] RN Member Role: Primary Care Nurse Name: Farzana Perez RN Position: [facility] RN Member Role: Primary Care Nurse Care Team Related Persons Name: RONAK RIOS Address: home [address] [place] [address] Name: KENA RIOS Address: home [address] [place] [address] Name: RANDALL RIOS Address: [address] [place] [address]
--- OUTSIDE RECORDS SUMMARY | 2024-02-21 23:21 | XMS_ITS | Continuity of Care Document ---
Author Organization [facility] Address [address] [place] [address]- Care Team Providers Care Rail Switchman Name Role Phone Jenaro Jaun Primary Care Physician Encounter [id number] Date(s): 12/07/20 - 01/06/21 [facility] [address] [place] [address]- Attending Physician: Jerod Denton Admitting Physician: Admtr, [id number] Referring Physician: Admtr, [...] 10/23/20 12:37:00 EDT, Route to Pharmacy Electronically, [id number], 160, cm, 09/10/20 15:03:00 EDT, Height, 73.4, kg, 09/10/20 9:18:00 EDT, Dry... Start Date: 10/23/20 Status: Ordered digoxin 0.125 mg oral tablet 1, tablet, By Mouth, Daily, # 90 tablet, Refills 1, Route to Pharmacy Electronically, [facility], 160, cm, 12/10/20 9:01:00 EDT, Height, 73.4, kg, 09/10/20 9:18:00 EDT, Dry Weight Start Date: 12/13/20 Status: Ordered Entresto 49 mg-51 mg oral tablet 1 tablet, By Mouth, 2 times a day, # 60 tablet, 11 Refills, Maintenance, 07/01/20 11:14:00 EST, Tablet, [facility]/pharmacy #[id number], 1 tablet By Mouth 2 [...] Active Family history of some sort of GOVERNMENT GAUGER cancer in her mother(Confirmed) Active GERD without [...]
--- OUTSIDE RECORDS SUMMARY | 2024-02-21 23:21 | XMS_ITS | Continuity of Care Document ---
Author Organization [facility] Address [address] [place] [address]- Care Team Providers Care Siebel Architect Name Role Phone Jaun Eason DO Primary Care Physician Encounter [facility] Date(s): 01/04/21 - 02/03/21 [facility] [address] [place] [address]- [place] Allergies, Adverse Reactions, Alerts Substance Reaction [...] 10/23/20 12:37:00 EDT, Route to Pharmacy Electronically, [facility], 160, cm, 09/10/20 15:03:00 EDT, Height, 73.4, kg, 09/10/20 9:18:00 EDT, Dry... Start Date: 10/23/20 Status: Ordered digoxin 0.125 mg oral tablet 1, tablet, By Mouth, Daily, # 90 tablet, Refills 1, Route to [facility]acy Electronically, [facility], 160, cm, 12/10/20 9:01:00 EDT, Height, 73.4, kg, 09/10/20 9:18:00 EDT, Dry Weight Start Date: 12/13/20 Status: Ordered Entresto 49 mg-51 mg oral tablet 1 tablet, By Mouth, 2 times a day, # 60 tablet, 11 Refills, Maintenance, 07/01/20 11:14:00 EST, Tablet, [facility]/pharmacy #[id number], 1 tablet By Mouth 2 [...] Active Family history of some sort of BUILDING PRESSURE WASHER cancer in her mother(Confirmed) Active GERD without [...]
--- OUTSIDE RECORDS SUMMARY | 2024-02-21 23:21 | XMS_ITS | Continuity of Care Document ---
Author Organization [facility] Address [address] [facility], [address] Floor, [address] [place] [address]- Care Team Providers Care Channel Opener Name Role Phone Jaun Eason DO Primary Care Physician Encounter [facility] Date(s): 02/27/23 - 03/29/23 [facility] [address], [address], [address] [place] [id number] Allergies, Adverse Reactions, Alerts Substance Reaction [...] tablet, 0 Refills, Maintenance, 07/15/22 8:37:00 EDT, [facility]/pharmacy #[id number], 1 tablet By Mouth [...] tablet, 3 Refills, Maintenance, 08/01/22 8:02:00 EDT, [facility], 160, cm, 05/06/22 10:53:00 EST, Height, 87.3, [...] capsule, 3 Refills, Maintenance, 04/10/20 13:57:00 EST, [facility]/pharmacy #0315, 158, cm, 02/24/20 9:14:00 EST, Height, [...] Active Family history of some sort of BLISTER PACKING MACHINE TENDER cancer in her mother Confirmed Active GERD [...] Team Personnel Name: Loretta Schwab RN Position: [facility] RN Member Role: Primary Care Nurse Name: Juan Eason DO Position: [facility] Physician - Primary Care Member Role: PCP Address: Address: [address] [place], [place] [id number] [place], [place] [address] Name: Elsa Tee RN Position: [facility] RN Member Role: Primary Care Nurse Name: Tesha Matias NP Position: Reference Physician Member Role: Primary Care Nurse Address: Address: [address] [place] [address]- Name: Robert Cherry RN Position: [facility] RN Member Role: Primary Care Nurse Name: Elina Greene LPN Position: [facility] RN Member Role: Primary Care Nurse Name: Lamar Talbert RN Position: [facility] RN Supshy Member Role: Primary Care Nurse Name: Rafael Ho RN Position: [facility] ED RN W/OE and Tasks Member Role: Primary Care Nurse Name: Kayley Baker RN Position: S RN Member Role: Primary Care Nurse Name: Christine Mays RN Position: S RN Member Role: Primary Care Nurse Name: Farzana Perez RN Position: [facility] RN Member Role: Primary Care Nurse Care Team Related Persons Name: RONAK RIOS Address: [address] [place] [address] Name: KENA RIOS Address: home [address] [place] [id number] Name: RANDALL RIOS Address: [place] [id number]
--- OUTSIDE RECORDS SUMMARY | 2024-02-21 23:21 | XMS_ITS | Continuity of Care Document ---
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 Name Role Phone Jaun Eason DO Primary Care Physician [id number] Date(s): 09[facility]10[facility]20 - 09/17/[facility]el[facility] LiuPolymita Technologiess [facility] [address] [facility], [address] [place], [place] [address] [[email or web address]] Attending Physician: Manfred HENAO, Harrison Lee Referring Physician: Jaun Eason DO Allergies, Adverse [...] 06/28/19 7:40:00 EST, Route to Pharmacy Electronically, [facility]/pharmacy #[id number], this replaces bisoprololthat is unavailable please contact office once back... Start Date: 06/28/19 Stop Date: 08/21/20 Status: Ordered digoxin 0.125 mg oral tablet 125 mcg, 1, tablet, By Mouth, Daily, # 90 tablet, Refills 1, Tot. Refills 1, Maintenance, 07/20/20 9:15:00 EDT, Route to Pharmacy Electronically, [facility]/pharmacy #[id number], 160, cm, 05/27/20 9:55:00 EST, Height, 82.9, kg, 05/06/20 12:35:00 EST, Dry Weight Start Date: 07/20/20 Stop Date: 01/16/21 Status: Ordered Entresto 49 mg-51 mg oral tablet 1 tablet, By Mouth, 2 times a day, # 60 tablet, 11 Refills, Maintenance, 07/01/20 11:14:00 EST, Tablet, [facility]/pharmacy #0315, 1 tablet By Mouth 2 times a day, 160, cm, 05/27/20 9:55:00 EST, Height, 82.9, kg, 05/06/20 12:35:00 EST, Dry Weight Start Date: 07/01/20 Status: Ordered Problem List Condition Effective Dates Status Health Status Inform ant Last pap smear 11/04/19 ASCUS with negative HPV(Confirmed) Active Chronic systolic CHF (conges tive heart failure)(Confirmed) Active Essential tremor(Confirmed) Active History of multiple falls(Confirmed) Active Family history of some sort of PRODUCT DESIGN ENGINEER cancer in her mother(Confirmed) Active GERD without esophagitis(Confirmed) Active History of pneumonia(Confirmed) Active Hearing impaired person(Confirmed) Active History of cardiomyopathy(Confirmed) Active 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 with comprehension(Confirmed) Active Menopausal state since age 50(Confirmed) Active Postmenopausal bleeding(Confirmed) Active Procedures Procedure Date Related Diagnosis Body Site Status Cardiac catheterization 02/15/16 C ompleted section 10/12/94 Complete d Repair of laceration of head after a fall at work Completed Vital Signs Most recent to oldest [Reference Range]: 1 Height 160 cm (09/10/20 9:18 AM) Weight 73.4 kg (09/10/20 9:18 AM) Body Mass Index [18.5-24.99] 28.67 *H* (09/10/20 9:18 AM) Blood Pressure [90-138/55-84 mm Hg] 90/6 0mm Hg (09/10/20 9:18 AM) Blood pressure sites Arm, left (09/10/20 9:18 AM) Dry Weight 73.4 kg (09/10/20 9:18 AM) Weight Obtained Via Standing scale (09/10/20 9:18 AM) Dry Weight Obtained Via Standing scale (09/10/20 9:18 AM) Social History Social History Type Response Smoking Status Former smoker; Tobac co user in household: No entered on: 12/29/16 Sex
--- OUTSIDE RECORDS SUMMARY | 2024-02-21 23:21 | XMS_ITS | Continuity of Care Document ---
Author Organization [facility] Address [address] [place] [address]- Care Team Providers Care Validation Consultant Name Role Phone Ebenezervalente LEEJaun Primary Care Physician En[place] [facility] Date(s): 10/03/21 - 10/15/[address] [address] Discharge Disposition: Disch/Trans to IP Rehab or unit w/in Hos Attending Physician: India Garcia DO Admitting Physician: Macy William MD Referring Physician: Not on Staff, Referring MD [...] Route Start Date: 02/18/16 Status: Ordered carvedilol 3.125 mg oral tablet 3.125 mg, Tablet, By Mouth, 10/15/21 9:00:00 EDT Start Date: 10/15/21 Stop Date: 10/15/21 Status: Completed carvedilol 3.125 mg oral tablet 3.125 mg, 1, tablet, By Mouth, 2 times a day, Refills 0, Maintenance, 10/15/21 9:28:00 EDT, Partialfill upon patient request if the prescription is for a schedule II opioid drug. Start Date: 10/15/21 Status: Ordered digoxin 0.125 mg oral tablet 1, tablet, By Mouth, Daily, for 30 days, # 30 tablet, Refills 6, Tot. Refills 6, Physician Stop 02/07/22 10:21:00 EDT, 07/12/21 10:21:00 EDT, Route to Pharmacy Electronically, [facility]/pharmacy #[id number], 160, cm, 06/28/21 10:44:00 EST, Height, 85.9, kg, 03/30... Start Date: 07/12/21 Stop Date: 02/07/22 Status: Ordered Durable Medical Equipment See Instructions, Maintenance, 03/23/21 10:38:00 EST, Supply Start Date: 03/23/21 Status: Ordered Entresto 24 mg-26 mg oral tablet 1 tablet, By Mouth, 2 times a day, 0 Refills, Maintenance, 10/15/21 9:28:00 EDT, Tablet, Partial fill upon patient request if the prescription is for a schedule II opioid drug. Start Date: 10/15/21 Status: Ordered Fish Oil By Mouth, 0 [...] Maintenance, Powder Start Date: 10/15/21 Status: Ordered oxyCODONE 5 mg oral tablet 5 mg, 1, tablet, By Mouth, Every 6 hours, PRN, for 3 days, # 12 tablet, Refills 0, Tot. Refills 0, Acute 10/18/21 11:12:00 EDT, as needed for pain, 10/15/21 11:12:00 EDT, Print Requisition, Partial fill upon patient request if the prescription is for... Start Date: 10/15/21 Stop Date: 10/18/21 Status: Ordered primidone 250 mg oral tablet 250 mg, 1, tablet, By Mouth, Daily at bedtime, # 30 tablet, Refills 6, Tot. Refills 6, Maintenance,09/07/21 15:17:00 EDT, Route to Pharmacy Electronically, [facility]/pharmacy #[id number], Partial fill upon patient request if the prescription is for a schedule II... Start Date: 09/07/21 Stop Date: 04/05/22 Status: Ordered Provera 5 mg oral tablet 1 tablet = 5 mg, By Mouth, Daily, # 90 tablet, 4 Refills, Maintenance, 06/08/21 9:18:00 EST, Tablet, [facility]/pharmacy #[id number], Partial fill upon patient [...] Active Family history of some sort of ROUTE VENDING MACHINE SERVICER cancer in her mother(Confirmed) Active GERD without esophagitis(Confirmed) Active History of pneumonia(Confirmed) Active Hearing impaired(Confirmed) Active History of cardiomyopathy(Confirmed) Active 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 with comprehension(Confirmed) Active Cognitive impairment(Confirmed) Active Menopausal state since age 50(Confirmed) Active Obese class I(Confirmed) Active Obstructive sleep apnea(Confirmed) Active Postmenopausal bleeding(Confirmed) Active Treatment-emergent central s leep apnea(Confirmed) Active Dry mouth(Confirmed) Active Results Orders for Microbiology Reports Name Date Blood Culture 10/06/21 Blood Culture #2 10/06/21 Urine Culture (URINE CULTURE) 10/03/21 Blood Culture 10/03/21 Blood Culture #2 10/03/21 Microbiology Reports TEST:Blood Culture STATUS:Auth (Verified) BODY SITE: SOURCE:Blood COLLECTED DATE/TIME:10/06/21 7:52 AM Blood Culture SPECIMEN DESCRIPTION : BLOOD L ARM SPECIAL REQUESTS : NONE CULTURE : NO GROWTH 5 DAYS. REPORT STATUS : FINAL 10/11/2021 TEST:Blood Culture, Second Order STATUS:Auth (Verified) BODY SITE: SOURCE:Blood COLLECTED DATE/TIME:10/06/21 7:52 AM Blood Culture, Second Order SPECIMEN DESCRIPTION : BLOOD L HAND SPECIAL REQUESTS : NONE CULTURE : NO GROWTH 5 DAYS. REPORT STATUS : FINAL 10/11/2021 TEST:Blood Culture STATUS:Auth (Verified) BODY SITE: SOURCE:Blood COLLECTED DATE/TIME:10/03/21 10:18 PM Blood Culture SPECIMEN DESCRIPTION : BLOOD NONE SPECIAL REQUESTS : NONE CULTURE : NO GROWTH 5 DAYS. REPORT STATUS : FINAL 10/08/2021 TEST:Urine Culture STATUS:Auth (Verified) BODY SITE: SOURCE:URINE COLLECTED DATE/TIME:10/03/21 10:13 PM Urine Culture SPECIMEN DESCRIPTION : URINE SPECIAL REQUESTS : NONE CULTURE : Mixed bacterial duran, indicative of urogenital contamination. REPORT STATUS : FINAL 10/05/2021 TEST:Blood Culture, Second Order STATUS:Auth (Verified) BODY SITE: SOURCE:Blood COLLECTED DATE/TIME:10/03/21 3:19 PM Blood Culture, Second Order SPECIMEN DESCRIPTION : BLOOD NONE SPECIAL REQUESTS : NONE CULTURE : NO GROWTH 5 DAYS. REPORT STATUS : FINAL 10/08/2021 Radiology Reports * Exam Date Time Procedure Performing Provider Status 10/11/21 11:45 AM Chest Portable Fidencio Neff; Auth (Ve rified) Notes: (Chest Portable) Reason For Exam: Shortness of Breath RESULT: Chest Portable Chest Portable Reason: Shortness of Breath; Clinical Question(s): Pneumonia COMPARISON: Multiple prior examinations the most recent dated 10/07/2021. FINDINGS: LINES AND TUBES: None. LUNGS AND PLEURA: Again noted are extensive bilateral pulmonary opacities essentially unchanged and consistent with multifocal pneumonia. No pleural effusion. No pneumothorax. HEART, MEDIASTINUM AND ZAKIA: Heart is normal in size. Normal upper mediastinal and hilar contour. BONES AND SOFT TISSUES: No acute abnormality. IMPRESSION: Extensive bilateral airspace opacities unchanged. WSN: [id number] Ordering Physician: Cosme Ontiveros Dictated By: Michael Mcmillan MD, V Dictated Date/Time: 10/11/21 12:12 p Reviewed By: Michael Mcmillan MD, V Signed By: Michael Mcmillan MD, V Signed Date/Time: 10/11/21 12:12 pm Transcribed By: KRISTINE Transcribed Date/Time: 10/11/21 12:09 pm * Exam Date Time Procedure Performing Provider Status 10/07/21 4:49 PM Chest Portable Johana Jaimes; Auth (Veri fibebe) Notes: (Chest Portable) Reason For Exam: Shortness of Breath RESULT: Chest Portable Chest Portable Reason: Shortness of Breath; Clinical Question(s): Aspiration COMPARISON: 10/03/2021 FINDINGS: LINES AND TUBES: None. LUNGS AND PLEURA: Extensive bilateral pulmonary opacities. These appear to have progressed compared to previous examination now extending throughout both lungs where as on the previous exam the apices appeared clear. No pleural effusion. No pneumothorax. HEART, MEDIASTINUM AND ZAKIA: Heart is normal in size. Normal upper mediastinal and hilar contour. BONES AND SOFT TISSUES: No acute abnormality. IMPRESSION: Progressive bilateral airspace disease. WSN: [id number] Ordering Physician: Idris Sabillon Dictated By: Rian Beth MD Dictated Date/Time: 10/07/21 9:22 pm Reviewed By: Rian Beth MD Signed By: Rian Beth MD Signed Date/Time: 10/07/21 9:22 pm Transcribed By: KRISTINE Transcribed Date/Time: 10/07/21 9:21 pm * Exam Date Time Procedure Performing Provider Status 10/03/21 4:25 PM Chest Portable Zenaida Rodriguez; Auth (Verified) Notes: (Chest Portable) Reason For Exam: Cough RESULT: Chest Portable Chest Portable Hx of Present Illness: Cough SOB Diarrhea x2 days; Reason: Cough; Clinical Question(s): Pleural Effusion COMPARISON: None. FINDINGS: LINES AND TUBES: None. LUNGS AND PLEURA: There is extensive consolidation of the mid to lower lung florence. There is no evidence of a pneumothorax or pleural effusion. HEART, MEDIASTINUM AND ZAKIA: Heart is normal in size. Normal upper mediastinal and hilar contour. BONES AND SOFT TISSUES: No acute abnormality. IMPRESSION: Again demonstrated is extensive bilateral airspace lung disease involving the mid to lower lung florence. WSN: [id number] Ordering Physician: Luis Ann Dictated By: Floresita Damon MD Dictated Date/Time: 10/03/21 4:27 pm Reviewed By: Floresita Damon MD Signed By: Floresita Damon MD Signed Date/Time: 10/03/21 4:27 pm Transcribed By: KRISTINE Transcribed Date/Time: 10/03/21 4:25 pm Vital Signs Most recent to oldest [Reference Range]: 1 2 3 Height 160 cm (10/15/21 10:30 AM) 160 cm (10/15/21 5:48 AM) 160 cm (10/14/21 10:48 PM) Weight 87.6 kg (10/11/21 9:14 AM) 86.4 kg (10/10/21 7:42 AM) 86.4 kg (10/10/21 6:32 AM) Oxygen Saturation [94-100 %] 94 % (10/15/21 11:00 AM) 96 % (10/15/21 10:30 AM) 94 % (10/15/21 5:48 AM) Pulse Rate [55-90 bpm] 93 bpm *H* (10/15/21 11:00 AM) 85 bpm (10/15/21 10:30 AM) 85 bpm (10/15/21 10:05 AM) Body Mass Index [18.5-24.99] 34.34 *>HHI* (10/04/21 1:03 AM) Blood Pressure [90-138/55-84 mm Hg] 91/71mm Hg (10/15/21 11:00 AM) 111/54mm Hg (10/15/21 10:30 AM) 111/54mm Hg (10/15/21 10:05 AM) Respiratory Rate [16-30 br/min] 18 br/min (10/15/21 11:00 AM) 85 br/min *H* (10/15/21 10:30 AM) 18 br/min (10/15/21 5:48 AM) Temperature [96.8-100.4 DegF] 97.8 DegF (10/15/21 11:00 AM) 98.1 DegF (10/15/21 10:30 AM) 97.8 DegF (10/15/21 5:48 AM) Liters per Minute 3 L/min (10/15/21 5:48 AM) 3 L/min (10/14/21 10:48 PM) 3 L/min (10/14/21 3:56 PM) Mode of Delivery (Oxygen) Room air (10/15/21 10:30 AM) Nasal cannula (10/15/21 5:48 AM) Nasal cannula (10/14/21 10:48 PM) Blood pressure sites Arm, right (10/15/21 5:48 AM) Arm, left (10/14/21 10:48 PM) Arm, right (10/14/21 3:56 PM) Temperature Route Temporal (10/15/21 11:00 AM) Oral (10/15/21 10:30 AM) Oral (10/15/21 5:48 AM) Dry Weight 87.9 kg (10/04/21 1:03 AM) 86 kg (10/03/21 3:01 PM) Weight Obtained Via Bed scale (10/11/21 9:14 AM) Bed scale (10/10/21 6:32 AM) Bed scale (10/07/21 7:37 AM) Dry Weight Obtained Via Bed scale (10/04/21 1:03 AM) Patient/family stated (10/03/21 3:01 PM) Social History Social History Type Response Smoking Status Former smoker; Other : Quit 2010; entered on: 03/02/16 Sex
--- OUTSIDE RECORDS SUMMARY | 2024-02-21 23:21 | XMS_ITS | Continuity of Care Document ---
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 Name Role Phone Jenaro Jaun Primary Care Physician Encounter [facility] [place]CT R [id number] Date(s): 02/27/23 - 03/29/23 [facility] [address] [place] [address]- Attending Physician: Jerod Denton Admitting Physician: AdmtrJerod Referring Physician: Admtr, Ar8 [...] tablet, 0 Refills, Maintenance, 07/15/22 8:37:00 EDT, [facility]/pharmacy #0315, 1 tablet By Mouth 2 [...] tablet, 3 Refills, Maintenance, 08/01/22 8:02:00 EDT, [facility] STORE 20651, 160, cm, 05/06/22 10:53:00 EST, Height, 87.3, [...] capsule, 3 Refills, Maintenance, 04/10/20 13:57:00 EST, [facility]/pharmacy #0315, 158, cm, 02/24/20 9:14:00 EST, [...] Active Family history of some sort of SEWER DIGGER cancer in her mother Confirmed Active GERD [...] : Quit 2010; entered on: 03/02/16 Sex Laboratory * Event Display: Non Lab Results Authored Date: * Event Display: Non Lab Results Authored Date: Cardiology Outpatient Note * Jania Hutson: PERFORM, SIGN, VERIFY Event Display: Cardiology Note Office Authored Date: [id number] Patient: KENA RIOS Age: 50 years Sex: Female : 1965 Associated Diagnoses: None Author: Jania Hutson 03/08/2016 To Whom It May Concern: Light Duty Recommendations Light duty: until further notice. No repetitive bending or stooping Light sedentary work Dr Sobeida Contreras Patient Care team information Care Team Personnel Name: Loretta Schwab RN Position: S RN Member Role: Primary Care Nurse Name: Jaun Eason DO Position: S Physician - Primary Care Member Role: PCP Address: Address: [address] [place], [place] [address] [place] [address]- [place] Name: Elsa Tee RN Position: S RN Member Role: Primary Care Nurse Name: Tesha Matias NP Position: Reference Physician Member Role: Primary Care Nurse Address: Address: [address] [place] [address]- Name: Robert Cherry RN Position: S RN Member Role: Primary Care Nurse Name: Elina Greene LPN Position: S RN Member Role: Primary Care Nurse Name: Lamar Talbert RN Position: [facility] RN Supv Member Role: Primary Care Nurse Name: Rafael Ho RN Position: [facility] ED RN W/OE and Tasks Member Role: Primary Care Nurse Name: Kayley Baker RN Position: S RN Member Role: Primary Care Nurse Name: Christine Mays RN Position: [facility] RN Member Role: Primary Care Nurse Name: Farzana Perez RN Position: [facility] RN Member Role: Primary Care Nurse Care Team Related Persons Name: RONAK RIOS Address: home [address] [place] [address] Name: KENA RIOS Address: home [address] [place] [address] Name: RANDALL RIOS Address: home [address] [place] [address]
--- OUTSIDE RECORDS SUMMARY | 2024-02-21 23:21 | XMS_ITS | Continuity of Care Document ---
Author Organization [facility] Address [address] [place] [address]- Care Team Providers Care Supervisor [employer] Name Role Phone Ebenezervalente LEE Jaun Primary Care Physician Encounter [facility] Date(s): 11/24/22 - 12/24/22 [facility] [address] [place] [address]- [place] Allergies, Adverse Reactions, Alerts Substance Reaction [...] tablet, By Mouth, 2 times a day, patient is out and will not receive mail order in time, # 8 tablet, 0 Refills, Maintenance, 07/29/22 9:15:00 EDT, [facility]/pharmacy #0315, Partial fill upon patient request if the prescription is for a schedule II opioid... Start Date: 07/29/22 Status: Ordered Entresto 49 mg-51 mg oral tablet 1 tablet, By Mouth, 2 times a day, # 28 tablet, 0 Refills, Maintenance, 07/15/22 8:37:00 EDT, [facility]/pharmacy #0315, 1 tablet By Mouth [...] tablet 250 mg, 1, tablet, By Mouth, 3 times a day, Refills 0, Maintenance, 11/11/22 9:43:00 EDT, Partial fill upon patient request if the prescription is for a schedule II opioid drug. Start Date: 11/11/22 Status: Ordered primidone 250 mg oral tablet 250 mg, 1, tablet, By Mouth, Daily at bedtime, for 30 days, # 30 tablet, Refills 5, Tot. Refills 5,Hard Stop 12/25/22 15:09:00 EDT, 06/28/22 15:09:00 EST, Route to Pharmacy Electronically, [facility]/pharmacy #0315, Partial fill upon patient request if the... Start Date: 06/28/22 Stop Date: 12/25/22 Status: Ordered primidone 250 mg oral tablet 250 mg, 1, tablet, By Mouth, Daily at bedtime, for 30 days, # 30 tablet, Refills 5, Tot. Refills 5,Hard Stop 06/23/23 15:09:00 EST, 12/25/22 15:09:00 EDT, Route to Pharmacy Electronically, [facility], Partial fill upon patient request if... Start Date: 12/25/22 Stop Date: 06/23/23 Status: Ordered primidone 50 mg oral tablet 100 mg, 2, tablet, By Mouth, Daily at bedtime, # 60 tablet, Refills 0, Maintenance, 11/11/22 9:43:00 EDT, Partial fill upon patient request if the prescription is for a schedule II opioid drug. Start Date: 11/11/22 Status: Ordered primidone 50 mg oral tablet 100 mg, 2, tablet, By Mouth, Daily at bedtime, # 60 tablet, Refills 0, Maintenance, 11/11/22 9:43:00 EDT, Partial fill upon patient request if the prescription is for a schedule II opioid drug. Start Date: 11/11/22 Status: Ordered primidone 50 mg oral tablet 100 mg, 2, tablet, By Mouth, Daily at bedtime, # 60 tablet, Refills 0, Maintenance, 11/11/22 9:43:00 EDT, Partial fill upon patient request if the prescription is for a schedule II opioid drug. Start Date: 11/11/22 Status: Ordered spironolactone 25 mg oral tablet [...] Refills, Maintenance, 08/01/22 8:02:00 EDT, [facility], 160, cm, 05/06/22 10:53:00 EST, Height, 87.3, [...] Active Family history of some sort of SULFONATOR OPERATOR cancer in her mother Confirmed Active GERD without esophagitis Confirmed Active History of pneumonia Confirmed Active Hearing impaired Confirmed Active History of cardiomyopathy Confirmed Active Estrogen excess Confirmed Active Patient states she has difficulty with comprehension Confirmed Active Cognitive impairment Confirmed Active Menopausal state since age 50 Confirmed Active Obstructive sleep apnea Confirmed Active [...] Primary Care Member Role: PCP Address: Address: [address] [place] [address] [address] [place], [place] - [place] Name: Elsa Tee RN Position: S RN Member Role: Primary Care Nurse Name: Tesha Matias NP Position: Reference Physician Member Role: Primary Care Nurse Address: Address: [address] [place] [address]- Name: Robert Cherry RN Position: [facility] RN Member Role: Primary Care Nurse Name: Elina Greene LPN Position: S RN Member Role: Primary Care Nurse Name: Lamar Talbert RN Position: [facility] RN Supv Member Role: Primary Care Nurse Name: Rafael Ho RN Position: [facility] ED RN W/OE and Tasks Member Role: Primary Care Nurse Name: Kayley Baker RN Position: S RN Member Role: Primary Care Nurse Name: Christine Mays RN Position: S RN Member Role: Primary Care Nurse Name: Farzana Perez RN Position: [facility] RN Member Role: Primary Care Nurse Care Team Related Persons Name: RONAK RIOS Address: home [address] [place] [address] Name: KENA RIOS Address: [address] [place] [address] Name: BLANCA RANDALL Address: [address] [place] [address]
--- OUTSIDE RECORDS SUMMARY | 2024-02-21 23:21 | XMS_ITS | Continuity of Care Document ---
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 Date(s): 06/20/20 - 10/18/20 [facility] [address] [place] [address]- Attending Physician: Arlin HENAO ([facility]), Rinku Bonner Allergies, Adverse Reactions, Alerts [...] 06/28/19 7:40:00 EST, Route to Pharmacy Electronically, [facility]/pharmacy #4527, this replaces bisoprololthat is unavailable please contact office once back... Start Date: 06/28/19 Stop Date: 08/21/20 Status: Ordered digoxin 0.125 mg oral tablet 125 mcg, 1, tablet, By Mouth, Daily, # 90 tablet, Refills 1, Tot. Refills 1, Maintenance, 07/20/20 9:15:00 EDT, Route to Pharmacy Electronically, [facility]/pharmacy #0315, 160, cm, 05/27/20 9:55:00 EST, Height, 82.9, kg, 05/06/20 12:35:00 EST, Dry Weight Start Date: 07/20/20 Stop Date: 01/16/21 Status: Ordered Entresto 49 mg-51 mg oral tablet 1 tablet, By Mouth, 2 times a day, # 60 tablet, 11 Refills, Maintenance, 07/01/20 11:14:00 EST, Tablet, [facility]/pharmacy #0315, 1 tablet By Mouth 2 times [...] Active Family history of some sort of GRIT BLASTER cancer in her mother(Confirmed) Active GERD without [...]
--- OUTSIDE RECORDS SUMMARY | 2024-02-21 23:21 | XMS_ITS | Continuity of Care Document ---
Author Organization [facility] Address [address] [facility] [address], 4t [place] [address]- Care Team Providers Care Loom Fixer Name Role Phone Jaun Eason DO Primary Care Physician [place] [facility] [place] [id number] Date(s): 05/27/21 - 06/03/21 [facility] [address], 4th [address] [place], [place] [address] Attending Physician: Harrison Shearer MD Allergies, Adverse Reactions, [...] 10/23/20 12:37:00 EDT, Route to Pharmacy Electronically, [facility] 9[facility]07, 160, cm, 09/10/20 15:03:00 EDT, Height, 73.4, kg, 09/10/20 9:18:00 EDT, Dry... Start Date: 10/23/20 Status: Ordered digoxin 0.125 mg oral tablet 1, tablet, By Mouth, Daily, # 90 tablet, Refills 1, Route to Pharmacy Electronically, [facility] STORE 52594, 160, cm, 12/10/20 9:01:00 EDT, Height, 73.4, [...] 04/02/21 14:34:00 EST, Route to Pharmacy Electronically, [facility]/pharmacy #0315, Partial fill upon patient request if the prescription is for a schedule II opioid drSukhjinder.. Start Date: 04/02/21 Stop Date: 06/01/21 Status: Ordered Entresto 49 mg-51 mg oral tablet 1 tablet, By Mouth, 2 times a day, # 60 tablet, 11 Refills, Maintenance, 07/01/20 11:14:00 EST, Tablet, [facility]/pharmacy #0315, 1 tablet By Mouth 2 times a day, 160, cm, 05/27/20 9:55:00 EST, Height, 82.9, kg, 05/06/20 12:35:00 EST, Dry Weight Start Date: 07/01/20 Status: Ordered primidone 50 mg oral tablet See Instructions, 4 tablet By Mouth at bedtime, or as directed, # 120 tablet, Refills 4, Tot. Refills 4, Maintenance, 06/03/21 15:49:00 EST, Instructions Replace Required Details, Route to Pharmacy Electronically, [facility]/pharmacy #0315, Partial fill upon... Start Date: 06/03/21 Status: Ordered Problem List Condition Effective Dates Status Health Status Inform ant Last pap smear 09/10/20 ASCUS with negative HPV(Confirmed) Active Chronic systolic CHF (conges tive heart failure)(Confirmed) Active Essential tremor(Confirmed) Active History of multiple falls(Confirmed) Active Family history of some sort of SCHOOL TRAFFIC GUARD cancer in her mother(Confirmed) Active GERD without esophagitis(Confirmed) Active History of pneumonia(Confirmed) Active Hearing impaired(Confirmed) Active History of cardiomyopathy(Confirmed) Active 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 with comprehension(Confirmed) Active Cognitive impairment(Confirmed) Active Menopausal state since age 50(Confirmed) Active Obese class I(Confirmed) Active Postmenopausal bleeding(Confirmed) Active Vital Signs Most recent to oldest [Reference Range]: 1 Height 160 cm (05/27/21 10:25 AM) Weight 83.63 kg (05/27/21 10:25 AM) Body Mass Index [18.5-24.99] 32.67 *>HHI* (05/27/21 10:25 AM) Blood Pressure [90-138/55-84 mm Hg] 80/7 0mm Hg *L* (05/27/21 10:25 AM) Blood pressure sites Arm, left (05/27/21 10:25 AM) Weight Obtained Via Standing scale (05/27/21 10:25 AM) Social History Social History Type Response Smoking Status Former smoker; Other : Quit 2010; entered on: 03/02/16 Sex
--- OUTSIDE RECORDS SUMMARY | 2024-02-21 23:21 | XMS_ITS | Continuity of Care Document ---
Author Organization [facility] Address [address] [address]- Care Team Providers Care Pier Master Name Role Phone Arlin HENAO ([facility] Rinku Bonner Primary Care Ph ysician Encounter [facility] Date(s): 07/30/19 - 11/27/[facility] [address] [address]- [facility] Attending Physician: Christine Funk CNM Admitting Physician: Christine Funk CNM Referring Physician: Christine Funk CNM Allergies, Adverse Reactions, Alerts Substance Reaction Severity [...] 06/28/19 7:40:00 EST, Route to Pharmacy Electronically, [facility]/pharmacy #6067, this replaces bisoprololthat is unavailable please contact office once back... Start Date: 06/28/19 Stop Date: 08/21/20 Status: Ordered digoxin 0.125 mg oral tablet 125 mcg, 1, tablet, By Mouth, Daily, # 90 tablet, Refills 2, Tot. Refills 2, Maintenance, 07/15/19 8:57:00 EDT, Route to Pharmacy Electronically, [facility]/pharmacy #0315, 160, cm, 06/28/19 7:51:00 EST, Height, 87.4, kg, 02/11/19 2:25:00 EDT, Dry Weight Start Date: 07/15/19 Stop Date: 04/10/20 Status: Ordered Entresto 49 mg-51 mg oral tablet 1 tablet, By Mouth, 2 times a day, # 60 tablet, 11 Refills, Maintenance, 05/17/19 16:00:00 EST, Tablet, [facility]/pharmacy #0315, 1 tablet By Mouth 2 times [...]
--- OUTSIDE RECORDS SUMMARY | 2024-02-21 23:21 | XMS_ITS | Continuity of Care Document ---
Author Organization [facility] Address [address] [place] [address]- Care Team Providers Care Traffic Control Specialist Name Role Phone Arlin HENAO ([facility])Rinku Primary Care ysician [place] [facility]01[place] - 04/01/[address] [address]- [facility] Discharge Disposition: A-D/C Home Attending Physician: Arlin HENAO ([facility])Rinku Admitting Physician: Arlin HENAO ([facility])Rinku Referring Physician: Arlin HENAO ([facility])Rinku Allergies, Adverse Reactions, Alerts Substance Reaction Severity Status NKA Active Immunizations Given and Recorded Vaccine Date [...] 03/21/18 17:24:02 EST, Route to Pharmacy Electronically, [id number], [facility]/pharmacy #1299, this replaces bisoprolol that is unav... Start Date: 03/21/18 Stop Date: 03/16/19 Status: Ordered digoxin 0.125 mg oral tablet 125 mcg, 1, tablet, By Mouth, Daily, # 90 tablet, Refills 1, Tot. Refills 1, Maintenance, 09/27/18 10:11:07 EDT, Route to Pharmacy Electronically, [id number], [facility]/pharmacy #0315 Start Date: 09/27/18 Stop [...] Essential tremor(Confirmed) Active GERD without esophagitis(Confirmed) Active H/O cardiomyopathy(Confirmed) Active Right knee pain(Confirmed) Active Tremor(Confirmed) Active Social History Social History Type Response Smoking Status Former smoker; Tobac co user in household: No entered on: 12/29/16 Sex
--- OUTSIDE RECORDS SUMMARY | 2024-02-21 23:21 | XMS_ITS | Continuity of Care Document ---
Author Organization [facility] Address [address] [facility], 4t [place] [address]- Care Team Providers Care Battery Plate Remover Name Role Phone Jaun Eason DO Primary Care Physician [place] [facility] 06/08[place]21 - 06/15/21 [facility] Madelineluba [facility] [address] [facility], 4th Floor [place], [place] [address] Attending Physician: Harrison Shearer MD [...] 10/23/20 12:37:00 EDT, Route to Pharmacy Electronically, [facility], 160, cm, 09/10/20 15:03:00 EDT, Height, 73.4, kg, 09/10/20 9:18:00 EDT, Dry... Start Date: 10/23/20 Status: Ordered digoxin 0.125 mg oral tablet 1, tablet, By Mouth, Daily, # 90 tablet, Refills 1, Route to Pharmacy Electronically, [facility] STORE 43848, 160, cm, 12/10/20 9:01:00 EDT, Height, 73.4, [...] 04/02/21 14:34:00 EST, Route to Pharmacy Electronically, [facility]/pharmacy #0315, Partial fill upon patient request if the prescription is for a schedule II opioid drSukhjinder.. Start Date: 04/02/21 Stop Date: 06/01/21 Status: Ordered Entresto 49 mg-51 mg oral tablet 1 tablet, By Mouth, 2 times a day, # 60 tablet, 11 Refills, Maintenance, 07/01/20 11:14:00 EST, Tablet, [facility]/pharmacy #0315, 1 tablet By Mouth [...] Replace Required Details, Route to Pharmacy Electronically, [facility]/pharmacy #0315, Partial fill upon... Start Date: 06/03/21 Status: Ordered Provera 5 mg oral tablet 1 tablet = 5 mg, By Mouth, Daily, # 90 tablet, 4 Refills, Maintenance, 06/08/21 9:18:00 EST, Tablet, [facility]/pharmacy #0315, Partial fill upon patient [...] Active Family history of some sort of CHECKROOM ATTENDANT cancer in her mother(Confirmed) Active GERD without [...] oldest [Reference Range]: 1 Height 160 cm (06/08/21 8:40 AM) Weight 83.63 kg (06/08/21 8:40 AM) Body Mass Index [18.5-24.99] 32.67 *>HHI* (06/08/21 8:40 AM) Blood Pressure [90-138/55-84 mm Hg] 118/ 62mm Hg (06/08/21 8:40 AM) Blood pressure sites Arm, left (06/08/21 8:40 AM) Weight Obtained Via Standing scale (06/08/21 8:40 AM) Social History Social History Type Response Smoking Status Former smoker; Other : Quit 2010; entered on: 03/02/16 Sex
--- OUTSIDE RECORDS SUMMARY | 2024-02-21 23:21 | XMS_ITS | Continuity of Care Document ---
Author Organization [facility] Address [address] [facility], [address] Floor, [address] [place] [address]- Care Team Providers Care Auto Painter Name Role Phone Jaun Eason DO Primary Care Physician [place] [facility] [place] 05/23/23 - 09/20/23 [facility] [address] [place], [address] [place] [address]- Attending Physician: Anastacio Major MD Admitting Physician: Anastacio Major MD Allergies, Adverse Reactions, Alerts Substance Reaction [...] tablet, Refills 5, Tot. Refills 5, Maintenance, 06/21/23 12:02:00 EST, Route to Pharmacy Electronically, [facility], 160, cm, 04/12/23 9:49:00EST, Height, 86, kg, 02/26/23 20:29:00 EST, Dry Weight Start Date: 06/21/23 Stop Date: 12/18/23 Status: Ordered Durable Medical Equipment See Instructions, Maintenance, 03/23/21 10:38:00 EST, Supply Start Date: 03/23/21 Status: Ordered Entresto 49 mg-51 mg oral tablet 1 tablet, By Mouth, 2 times a day, # 60 tablet, 5 Refills, Maintenance, 06/09/23 14:17:00 EST, [facility], 1 tablet By Mouth 2 times [...] 06/23/23 Stop Date: 10/21/23 Status: Ordered primidone 50 mg oral tablet [...] Refills, Maintenance, 08/01/22 8:02:00 EDT, [facility], 160, cm, 05/06/22 10:53:00 EST, Height, 87.3, [...] Active Family history of some sort of EAP COUNSELOR cancer in her mother Confirmed Active GERD [...] Team Personnel Name: Loretta Schwab RN Position: [facility] RN Member Role: Primary Care Nurse Name: Jaun Eason DO Position: [facility] Physician - Primary Care Member Role: PCP Address: Address: [address] [place] [address] [address] [place] [address]- Name: Tesha Matias NP Position: Reference Physician Member Role: Primary Care Nurse Address: Address: [address] [place] [address]- Name: Robert Cherry RN Position: [facility] RN Member Role: Primary Care Nurse Name: Elina Greene LPN Position: [facility] RN Member Role: Primary Care Nurse Name: Rafael Ho RN Position: [facility] ED RN W/OE and Tasks Member Role: Primary Care Nurse Name: Kayley Baker RN Position: [facility] RN Member Role: Primary Care Nurse Name: Christine Mays RN Position: [facility] RN Member Role: Primary Care Nurse Name: Farzana Perez RN Position: [facility] RN Member Role: Primary Care Nurse Care Team Related Persons Name: RIOSRONAK Address: home [address] [place] [address] Name: KENA RIOS Address: home [address] [place] [address] Name: RANDALL RIOS Address: home [address] [place] [address]
--- OUTSIDE RECORDS SUMMARY | 2024-02-21 23:21 | XMS_ITS | Continuity of Care Document ---
Author Organization [facility] Madelineluba Goncalves [facility] Address [address] [place] [address], [address] [place] [address]- Care Team Providers Care Accelerator Technician Name Role Phone Jaun Eason DO [id number] - 06/17/23 [facility] [employer] [facility] [address] [facility] [place], [place] [address] Attending Physician: Rubin Bowden MD Referring Physician: Not on Staff, Referring [...] tablet, 3 Refills, Maintenance, 08/01/22 8:02:00 EDT, [facility] 17[facility], 160, cm, 05/06/22 10:53:00 EST, Height, 87.3, [...] capsule, 3 Refills, Maintenance, 04/10/20 13:57:00 EST, [facility]/pharmacy #0315, 158, cm, 02/24/20 9:14:00 EST, Height, [...] Active Family history of some sort of VICE PRESIDENT CLIENT SERVICES cancer in her mother Confirmed Active GERD [...] Team Personnel Name: Loretta Schwab RN Position: [facility] RN Member Role: Primary Care Nurse Name: Jaun Eason DO Position: [facility] Physician - Primary Care Member Role: PCP Address: Address: [address] [place], [place] [id number] [place] [address]- Name: Elsa Tee RN Position: [facility] RN Member Role: Primary Care Nurse Name: Tesha Matias NP Position: Reference Physician Member Role: Primary Care Nurse Address: Address: [address] [place] [address]- Name: Robert Cherry RN Position: [facility] RN Member Role: Primary Care Nurse Name: Elina Greene LPN Position: [facility] RN Member Role: Primary Care Nurse Name: Lamar Talbert RN Position: [facility] RN Supv Member Role: Primary Care Nurse Name: Rafael Ho RN Position: [facility] ED RN W/OE and Tasks Member Role: Primary Care Nurse Name: Kayley Baker RN Position: S RN Member Role: Primary Care Nurse Name: Christine Mays RN Position: S RN Member Role: Primary Care Nurse Name: Farzana Perez RN Position: S RN Member Role: Primary Care Nurse Care Team Related Persons Name: RONAK RIOS Address: home [address] [place] [address] Name: KENA RIOS Address: home [address] [place] [address] [place] [address] Name: RANDALL RIOS Address: [address] [place] [address]
--- OUTSIDE RECORDS SUMMARY | 2024-02-21 23:21 | XMS_ITS | Continuity of Care Document ---
Author Organization [facility] Address [address] [address]- Care Team Providers Care Property Site Manager Name Role Phone Arlin HENAO ([facility]), Rinku Bonner Primary Care Ph ysician Encounter [facility] Date(s): 07/09/19 - [facility]19/19 [facility] [address] [address]- [facility] Attending Physician: Admtr, Ar8 Admitting Physician: Admtr, Ar8 Referring Physician: Admtr, [...] 06/28/19 7:40:00 EST, Route to Pharmacy Electronically, [facility]/pharmacy #[id number], this replaces bisoprololthat is unavailable please contact office once back... Start Date: 06/28/19 Stop Date: 08/21/20 Status: Ordered digoxin 0.125 mg oral tablet 125 mcg, 1, tablet, By Mouth, Daily, # 90 tablet, Refills 2, Tot. Refills 2, Maintenance, 07/15/19 8:57:00 EDT, Route to Pharmacy Electronically, [facility]/pharmacy #[id number], 160, cm, 06/28/19 7:51:00 EST, Height, 87.4, kg, 02/11/19 2:25:00 EDT, Dry Weight Start Date: 07/15/19 Stop Date: 04/10/20 Status: Ordered Entresto 49 mg-51 mg oral tablet 1 tablet, By Mouth, 2 times a day, # 60 tablet, 11 Refills, Maintenance, 05/17/19 16:00:00 EST, Tablet, [facility]/pharmacy #[id number], 1 tablet By [...]
--- OUTSIDE RECORDS SUMMARY | 2024-02-21 23:21 | XMS_ITS | Continuity of Care Document ---
Author Organization [facility] Address [address] [place] [address]- Care Team Providers Care Hot Blaster Name Role Phone Jenaro LEEJaun Primary Care Physician Encounter [facility] Date(s): 10/12/20 - 11/11/20 [facility] [address] [place] [address] [[email or web address]] Allergies, Adverse Reactions, Alerts Substance Reaction Severity Status benzonatate Persistent Moderate Active Immunizations Given and Recorded Vaccine Date Status Refusal Reason SARS-CoV-2 (COVID-19) mRNA BNT-162b2 vac 09/01/20 Recorded SARS-CoV-2 (COVID-19) mRNA BNT-162n6 vac 08/11/20 Recorded tetanus/diphtheria/pertussis, acel(Tdap) 02/20/20 Given [...] 10/23/20 12:37:00 EDT, Route to Pharmacy Electronically, [facility] 43980, 160, cm, 09/10/20 15:03:00 EDT, Height, 73.4, kg, 09/10/20 9:18:00 EDT, Dry... Start Date: 10/23/20 Status: Ordered digoxin 0.125 mg oral tablet 125 mcg, 1, tablet, By Mouth, Daily, # 90 tablet, Refills 1, Tot. Refills 1, Maintenance, 07/20/20 9:15:00 EDT, Route to Pharmacy Electronically, [facility]/pharmacy #[id number], 160, cm, 05/27/20 9:55:00 EST, Height, 82.9, kg, 05/06/20 12:35:00 EST, Dry Weight Start Date: 07/20/20 Stop Date: 01/16/21 Status: Ordered Entresto 49 mg-51 mg oral tablet 1 tablet, By Mouth, 2 times a day, # 60 tablet, 11 Refills, Maintenance, 07/01/20 11:14:00 EST, Tablet, [facility]/pharmacy #0315, 1 tablet By Mouth [...] Active Family history of some sort of DEPUTY CONTROLLER cancer in her mother(Confirmed) Active GERD without esophagitis(Confirmed) Active History of pneumonia(Confirmed) Active Hearing impaired(Confirmed) Active History of cardiomyopathy(Confirmed) Active 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 with comprehension(Confirmed) Active Menopausal state since age 50(Confirmed) Active Postmenopausal bleeding(Confirmed) Active Social History Social History Type Response Smoking Status Former smoker; Other : Quit 2010; entered on: 03/02/16 Sex
--- OUTSIDE RECORDS SUMMARY | 2024-02-21 23:21 | XMS_ITS | Continuity of Care Document ---
Author Organization [facility] Address [address] [place] [address]- Care Team Providers Care Flatbed Driver Name Role Phone Arlin HENAO ([facility])Rinku Primary Care Ph ysician Encounter [facility] Date(s): 10/01/19 - 11/23/19 [facility] [address] [place] [address]- [facility] Attending Physician: Arlin HENAO ([facility])Rinku Allergies, Adverse Reactions, Alerts Substance Reaction Severity [...] 06/28/19 7:40:00 EST, Route to Pharmacy Electronically, [facility]/pharmacy #0315, this replaces bisoprololthat is unavailable please contact office once back... Start Date: 06/28/19 Stop Date: 08/21/20 Status: Ordered digoxin 0.125 mg oral tablet 125 mcg, 1, tablet, By Mouth, Daily, # 90 tablet, Refills 2, Tot. Refills 2, Maintenance, 07/15/19 8:57:00 EDT, Route to Pharmacy Electronically, [facility]/pharmacy #0315, 160, cm, 06/28/19 7:51:00 EST, Height, 87.4, kg, 02/11/19 2:25:00 EDT, Dry Weight Start Date: 07/15/19 Stop Date: 04/10/20 Status: Ordered Entresto 49 mg-51 mg oral tablet 1 tablet, By Mouth, 2 times a day, # 60 tablet, 11 Refills, Maintenance, 05/17/19 16:00:00 EST, Tablet, [facility], 1 tablet By Mouth 2 times [...]
--- OUTSIDE RECORDS SUMMARY | 2024-02-21 23:21 | XMS_ITS | Continuity of Care Document ---
Author Organization [facility] Address [address] [place] [address]- Care Team Providers Care Steel Welder Name Role Phone Arlin HENAO ([facility]), Rinku Bonner Primary Care Ph ysician Encounter [facility] Date(s): 03/01/19 - 04/24/19 [facility] [address] [place] [address]- [facility] Attending Physician: Diamond Laboy NP Admitting Physician: Diamond Laboy NP Referring Physician: Sherita Oliveros MD Allergies, Adverse [...] 03/21/18 17:24:02 EST, Route to Pharmacy Electronically, [id number], [facility]/pharmacy #0315, this replaces bisoprolol that is unav... Start Date: 03/21/18 Stop Date: 03/16/19 Status: Ordered digoxin 0.125 mg oral tablet 125 mcg, 1, tablet, By Mouth, Daily, # 90 tablet, Refills 1, Tot. Refills 1, Maintenance, 09/27/18 10:11:07 EDT, Route to Pharmacy Electronically, [id number], [facility]/pharmacy #0315 Start Date: 09/27/18 Stop Date: 03/26/19 [...]
--- OUTSIDE RECORDS SUMMARY | 2024-02-21 23:21 | XMS_ITS | Continuity of Care Document ---
Author Organization [facility] Address [address] [facility], [address] d Floor, [address] [place] [address]- Care Team Providers Care Complex Care Nurse Practitioner Name Role Phone Jaun Eason DO Primary Care Physician Encounter [facility] Date(s): 08/21/23 - 09/20/23 [facility] [address], [address] [place] [address]- Attending Physician: Jerod Denton Admitting Physician: Jerod [...] Refills, Maintenance, 08/01/22 8:02:00 EDT, [facility], 160, cm, 05/06/22 10:53:00 EST, Height, 87.3, [...] Active Family history of some sort of MANUAL ARTS THERAPIST cancer in her mother Confirmed Active GERD [...] DO Position: [facility] Physician - Primary Care Member Role: PCP Address: Address: [address] [place] [address] [address] [place] [address]- Name: Tesha Matias NP Position: Reference Physician Member Role: Primary Care Nurse Address: Address: [address] [place] [address]- Name: Robert Cherry RN Position: S RN Member Role: Primary Care Nurse Name: Elina Greene LPN Position: S RN Member Role: Primary Care Nurse Name: Rafael Ho RN Position: [facility] ED RN W/OE and Tasks Member Role: Primary Care Nurse Name: Kayley Baker RN Position: S RN Member Role: Primary Care Nurse Name: Christine Mays RN Position: [facility] RN Member Role: Primary Care Nurse Name: Farzana Perez RN Position: [facility] RN Member Role: Primary Care Nurse Care Team Related Persons Name: BLANCA RONAK Address: home [address] [place], [place] Name: KENA RIOS Address: home [address] [place], [place] Name: RANDALL RIOS Address: home [address] [place], [place]
--- OUTSIDE RECORDS SUMMARY | 2024-02-21 23:21 | XMS_ITS | Continuity of Care Document ---
Author Organization [facility] Address [address] [place] [address]- Care Team Providers Care Bone Drier Operator Name Role Phone Arlin HENAO ([facility]), Rinku Bonner Primary Care Ph ysician Encounter [facility] Date(s): 07/22/19 - 08/01/19 [facility] [place] [address] [place] [address]- [facility] Attending Physician: Jerod Denton Admitting Physician: AdmJerod weber Referring Physician: AdmtrJerod Allergies, Adverse Reactions, Alerts [...] 06/28/19 7:40:00 EST, Route to Pharmacy Electronically, [facility]/pharmacy #0125, this replaces bisoprololthat is unavailable please contact office once back... Start Date: 06/28/19 Stop Date: 08/21/20 Status: Ordered digoxin 0.125 mg oral tablet 125 mcg, 1, tablet, By Mouth, Daily, # 90 tablet, Refills 2, Tot. Refills 2, Maintenance, 07/15/19 8:57:00 EDT, Route to Pharmacy Electronically, [facility]/pharmacy #0315, 160, cm, 06/28/19 7:51:00 EST, Height, 87.4, kg, 02/11/19 2:25:00 EDT, Dry Weight Start Date: 07/15/19 Stop Date: 04/10/20 Status: Ordered Entresto 49 mg-51 mg oral tablet 1 tablet, By Mouth, 2 times a day, # 60 tablet, 11 Refills, Maintenance, 05/17/19 16:00:00 EST, Tablet, [facility]/pharmacy #0315, 1 tablet By Mouth 2 [...]
--- OUTSIDE RECORDS SUMMARY | 2024-02-21 23:21 | XMS_ITS | Continuity of Care Document ---
Author Organization [facility] Address [address] [place] [address]- Care Team Providers Care Lead Quality Control Technician Name Role Phone Ariln HENAO ([facility]), Rinku Bonner Primary Care Ph ysician En[facility] Date(s): 03/25/19 - 04/04/19 [facility] [address] [place] [address]- [facility] Attending Physician: Jerod Denton Admitting Physician: AdmJerod [...] 03/21/18 17:24:02 EST, Route to Pharmacy Electronically, [id number], [facility]/pharmacy #0315, this replaces bisoprolol that is unav... Start Date: 03/21/18 Stop Date: 03/16/19 Status: Ordered digoxin 0.125 mg oral tablet 125 mcg, 1, tablet, By Mouth, Daily, # 90 tablet, Refills 1, Tot. Refills 1, Maintenance, 09/27/18 10:11:07 EDT, Route to Pharmacy Electronically, [id number], [facility]/pharmacy #0315 Start Date: 09/27/18 Stop Date: 03/26/19 [...]
--- OUTSIDE RECORDS SUMMARY | 2024-02-21 23:22 | XMS_ITS | Continuity of Care Document ---
Author Organization [facility] Address [address] [place] [address], [address] [place] [address]- Care Team Providers Care Accounts Payable Assistant Name Role Phone Jaun Eason DO Primary Care Physician Encounter [facility] Date(s): 09/07/20 - 11/01/20 [facility] [address] [facility] [place], [place] [address] Attending Physician: Makeda HENAO, Twyla Jalloh Referring Physician: Jaun Eason DO Allergies, Adverse [...] 10/23/20 12:37:00 EDT, Route to Pharmacy Electronically, [facility] STORE 75559, 160, cm, 09/10/20 15:03:00 EDT, Height, 73.4, kg, 09/10/20 9:18:00 EDT, Dry... Start Date: 10/23/20 Status: Ordered digoxin 0.125 mg oral tablet 125 mcg, 1, tablet, By Mouth, Daily, # 90 tablet, Refills 1, Tot. Refills 1, Maintenance, 07/20/20 9:15:00 EDT, Route to Pharmacy Electronically, [facility]/pharmacy #0315, 160, cm, 05/27/20 9:55:00 EST, Height, 82.9, kg, 05/06/20 12:35:00 EST, Dry Weight Start Date: 07/20/20 Stop Date: 01/16/21 Status: Ordered Entresto 49 mg-51 mg oral tablet 1 tablet, By Mouth, 2 times a day, # 60 tablet, 11 Refills, Maintenance, 07/01/20 11:14:00 EST, Tablet, [facility]/pharmacy #0315, 1 tablet By Mouth 2 [...] Family history of some sort of VICE SQUAD POLICE OFFICER cancer in her mother(Confirmed) Active GERD without [...]
--- OUTSIDE RECORDS SUMMARY | 2024-02-21 23:22 | XMS_ITS | Continuity of Care Document ---
Author Organization [facility] Address [address] [place] [address], 4t [place] [address]- Care Team Providers Care Mosaic Tiler Name Role Phone Jaun Eason DO [facility] Phys[id number] - [facility] [email or web address] [address] [facility] [place], [place] [address] Attending Physician: Not on Staff, Attending MD Referring Physician: Phuc James Allergies, Adverse Reactions, Alerts Substance Reaction Severity [...] prescription is for a schedule... Start Date: 11/7/23 Status: Ordered spironolactone 25 mg oral tablet [...] Active Family history of some sort of SUPERINTENDENT DISTRIBUTION cancer in her mother Confirmed Active GERD [...] apnea Confirmed Active Dry mouth Confirmed Active Vital Signs Most recent to oldest [Reference Range]: 1 Height 160.0 cm (11/17/23 11:39 AM) Weight 93.18 kg (11/17/23 11:39 AM) Pulse Rate [55-90 bpm] 76 bpm (11/17/23 11:39 AM) Body Mass Index [18.5-24.99 kg/m2] 36.4 kg/m2 *>HHI* (11/17/23 11:39 AM) Blood Pressure [90-138/55-84 mm Hg] 128/ 58mm Hg (11/17/23 11:39 AM) Respiratory Rate [16-30 br/min] 19 br/mi n (11/17/23 11:39 AM) Blood pressure sites Arm, left (11/17/23 11:39 AM) Weight Obtained Via Standing scale (11/17/23 11:39 AM) Social History Social History Type Response Smoking Status Former smoker; Other : Quit 2010; entered on: 03/02/16 Sex Patient Care team information Care Team Personnel Name: Loretta Schwab RN Position: S RN Member Role: Primary Care Nurse Name: Jaun Eason DO Position: [facility] Outreach Member Role: PCP Address: Address: [address] [place] [address] [address] [place], [place] [address] Name: Tesha Matias NP Position: Reference Physician Member Role: Primary Care Nurse Address: Address: [address] [place] [phone] Name: Robert Cherry RN Position: S RN Member Role: Primary Care Nurse Name: Elina Greene LPN Position: S RN Member Role: Primary Care Nurse Name: Rafael Ho RN Position: [facility] ED RN W/OE and Tasks Member Role: Primary Care Nurse Name: Kayley Baker RN Position: S RN Member Role: Primary Care Nurse Name: Christine Mays RN Position: S RN Member Role: Primary Care Nurse Name: Farzana Perez RN Position: S RN Member Role: Primary Care Nurse Care Team Related Persons Name: RONAK RIOS Address: [address] [place], [place] Name: BLANCA NOEALEX Address: [address] [place] [address] Name: BLANCA RANDALL Address: [address] [place] [address]
--- OUTSIDE RECORDS SUMMARY | 2024-02-21 23:22 | XMS_ITS | Continuity of Care Document ---
Author Organization [facility] Address [address] [place] [address]- Care Team Providers Care Nc Manager Name Role Phone Jaun Eason DO Primary Care Physician Encounter [facility] Date(s): 07/14/20 - 09/03/20 [facility] [address] [place] [address] Attending Physician: Demetrice Chase MD Admitting Physician: Demetrice Chase MD Referring Physician: Arlin HENAO ([facility]), [facility] ramon Bonner Allergies, Adverse Reactions, Alerts Substance Reaction [...] EST, Route to Pharmacy Electronically, [facility]/pharmacy #7779, this replaces bisoprololthat is unavailable please contact office once back... Start Date: 06/28/19 Stop Date: 08/21/20 Status: Ordered digoxin 0.125 mg oral tablet 125 mcg, 1, tablet, By Mouth, Daily, # 90 tablet, Refills 1, Tot. Refills 1, Maintenance, 07/20/20 9:15:00 EDT, Route to Pharmacy Electronically, [facility]/pharmacy #0315, 160, cm, 05/27/20 9:55:00 EST, Height, 82.9, kg, 05/06/20 12:35:00 EST, Dry Weight Start Date: 07/20/20 Stop Date: 01/16/21 Status: Ordered Entresto 49 mg-51 mg oral tablet 1 tablet, By Mouth, 2 times a day, # 60 tablet, 11 Refills, Maintenance, 07/01/20 11:14:00 EST, Tablet, [facility]/pharmacy #0315, 1 tablet By Mouth 2 times [...]
--- OUTSIDE RECORDS SUMMARY | 2024-02-21 23:22 | XMS_ITS | Continuity of Care Document ---
Author Organization [facility] Address [address] [place] [address]- Care Team Providers Care Boat Driver Name Role Phone Jaun Eason DO [id number] - 03/19/[address] [address]- Attending Physician: Meenu Griffin MD Admitting Physician: Meenu Griffin MD Referring Physician: Jaun Eason DO Allergies, [...] tablet, 0 Refills, Maintenance, 07/15/22 8:37:00 EDT, [facility]/pharmacy #0315, 1 [...] EDT, Route to Pharmacy Electronically, JANELLE pressley; [facility], Partial fill upon patient request [...] tablet, 3 Refills, Maintenance, 08/01/22 8:02:00 EDT, [facility] STORE 25168, 160, cm, 05/06/22 10:53:00 EST, Height, 87.3, [...] capsule, 3 Refills, Maintenance, 04/10/20 13:57:00 EST, [facility]/pharmacy #0315, 158, cm, 02/24/20 9:14:00 EST, [...] Active Family history of some sort of CORE MANAGER cancer in her mother Confirmed Active GERD [...] Team Personnel Name: Loretta Schwab RN Position: [facility] RN Member Role: Primary Care Nurse Name: Jaun Eason DO Position: [facility] Physician - Primary Care Member Role: PCP Address: Address: [address] [place], [place] [address] [place] [address]- Name: Elsa Tee RN Position: [facility] RN Member Role: Primary Care Nurse Name: Tesha Matias NP Position: Reference Physician Member Role: Primary Care Nurse Address: Address: [address] [place] [address] Name: Robert Cherry RN Position: [facility] RN Member Role: Primary Care Nurse Name: Elina Greene LPN Position: [facility] RN Member Role: Primary Care Nurse Name: Lamar Talbert RN Position: [facility] RN Supv Member Role: Primary Care Nurse Name: Rafael Ho RN Position: [facility] ED RN W/OE and Tasks Member Role: Primary Care Nurse Name: Kayley Baker RN Position: [facility] RN Member Role: Primary Care Nurse Name: Christine Mays RN Position: [facility] RN Member Role: Primary Care Nurse Name: Farzana Perez RN Position: [facility] RN Member Role: Primary Care Nurse Care Team Related Persons Name: RONAK RIOS Address: [address] [place] [address] Name: KENA RIOS Address: [address] [facility] [address] Name: BLANCA RANDALL Address: [address] [place] [address]
--- OUTSIDE RECORDS SUMMARY | 2024-02-21 23:22 | XMS_ITS | Continuity of Care Document ---
Author Organization [facility] Address [address] [place] [address]- Care Team Providers Care Internal Medicine Veterinary Technician Name Role Phone Jaun Eason DO Primary Care Physician [place] [facility] Date(s): 01/04/21 - 02/03/21 [facility] [address] [place] [address] [place] Allergies, Adverse Reactions, Alerts Substance Reaction [...] 10/23/20 12:37:00 EDT, Route to Pharmacy Electronically, [facility] 1950[facility], 160, cm, 09/10/20 15:03:00 EDT, Height, 73.4, kg, 09/10/20 9:18:00 EDT, Dry... Start Date: 10/23/20 Status: Ordered digoxin 0.125 mg oral tablet 1, tablet, By Mouth, Daily, # 90 tablet, Refills 1, Route to Pharmacy Electronically, [facility], 160, cm, 12/10/20 9:01:00 EDT, Height, 73.4, kg, 09/10/20 9:18:00 EDT, Dry Weight Start Date: 12/13/20 Status: Ordered Entresto 49 mg-51 mg oral tablet 1 tablet, By Mouth, 2 times a day, # 60 tablet, 11 Refills, Maintenance, 07/01/20 11:14:00 EST, Tablet, [facility]/pharmacy #0315, 1 tablet By Mouth [...] Active Family history of some sort of CHIMNEY BUILDER cancer in her mother(Confirmed) Active GERD without [...]
--- OUTSIDE RECORDS SUMMARY | 2024-02-21 23:22 | XMS_ITS | Continuity of Care Document ---
Author Organization [facility] Address [address] [place] [address]- Care Team Providers Care Grinder Brake Lining Name Role Phone Jaun Eason DO Primary Care Physician Encounter [facility] Date(s): 03/15/21 - 04/14/21 [facility] [address] [place] [address] [place] Allergies, Adverse Reactions, Alerts Substance Reaction [...] 10/23/20 12:37:00 EDT, Route to Pharmacy Electronically, [facility] 0[facility]83, 160, cm, 09/10/20 15:03:00 EDT, Height, 73.4, kg, 09/10/20 9:18:00 EDT, Dry... Start Date: 10/23/20 Status: Ordered digoxin 0.125 mg oral tablet 1, tablet, By Mouth, Daily, # 90 tablet, Refills 1, Route to Pharmacy Electronically, [facility] STORE 27466, 160, cm, 12/10/20 9:01:00 EDT, Height, 73.4, [...] 04/02/21 14:34:00 EST, [facility] fill upon patient request if the prescription is for a schedule II opioid . Start Date: 04/02/21 Stop Date: 06/01/21 Status: Ordered Entresto 49 mg-51 mg oral tablet 1 tablet, By Mouth, 2 times a day, # 60 tablet, 11 Refills, Maintenance, 07/01/20 11:14:00 EST, Tablet, [facility]/pharmacy #0315, 1 tablet By Mouth 2 times [...] Active Family history of some sort of FLAT FINISHER cancer in her mother(Confirmed) Active GERD without [...]
--- OUTSIDE RECORDS SUMMARY | 2024-02-21 23:22 | XMS_ITS | Continuity of Care Document ---
Author Organization [facility] Address Unknown Care Team Providers Care Machine Hamper Maker Name Role Phone Jaun Eason DO Primary Care Physician [place] [facility] [place](s): 12/21/20 - 01/20/21 [facility] Allergies, Adverse Reactions, Alerts Substance [...] 10/23/20 12:37:00 EDT, Route to Pharmacy Electronically, [facility] 75[facility], 160, cm, 09/10/20 15:03:00 EDT, Height, 73.4, kg, 09/10/20 9:18:00 EDT, Dry... Start Date: 10/23/20 Status: Ordered digoxin 0.125 mg oral tablet 1, tablet, By Mouth, Daily, # 90 tablet, Refills 1, Route to Pharmacy Electronically, [facility] 79568, 160, cm, 12/10/20 9:01:00 EDT, Height, 73.4, [...] Active Family history of some sort of HOSPICE CLINICAL MANAGER cancer in her mother(Confirmed) Active GERD without [...]
--- OUTSIDE RECORDS SUMMARY | 2024-02-21 23:22 | XMS_ITS | Continuity of Care Document ---
Author Organization [facility] Address [address] [place] [address]- Care Team Providers Care Car Loader Name Role Phone Jaun Eason DO Primary Care Physician Encounter [facility] [place] Date(s): 09/16/22 - 10/16/22 [facility] [address] [place] [address]- Attending Physician: Jerod Denton Admitting Physician: AdmtrJerod [...] tablet, Refills 3, Tot. Refills 3, Maintenance, 08/18/22 12:17:00 EDT, Route to Pharmacy Electronically, [facility], 160, cm, 08/03/22 13:23:00 EDT, Height, 87.3, kg, 03/27/22 1:36:00 EST, Dry Weight Start Date: 08/18/22 Stop Date: 12/16/22 Status: Ordered Durable Medical Equipment See Instructions, Maintenance, 03/23/21 10:38:00 EST, Supply Start Date: 03/23/21 Status: Ordered Entresto 49 mg-51 mg oral tablet 1 tablet, By Mouth, 2 times a day, patient is out and will not receive mail order in time, # 8 tablet, 0 Refills, Maintenance, 07/29/22 9:15:00 EDT, [facility]/pharmacy #0315, Partial fill upon patient request if the prescription is for a schedule II opioid... Start Date: 07/29/22 Status: Ordered Entresto 49 mg-51 mg oral tablet 1 tablet, By Mouth, 2 times a day, # 28 tablet, 0 Refills, Maintenance, 07/15/22 8:37:00 EDT, [facility]/pharmacy #0315, 1 tablet By [...] tablet, 5 Refills, Maintenance, 06/07/22 7:57:00 EST, [facility] STORE 48612, 160, cm, 05/06/22 10:53:00 EST, Height, 87.3, [...] tablet 250 mg, 1, tablet, By Mouth, 2 times a day, # 180 tablet, Refills 3, Tot. Refills 3, Maintenance, 12/25/22 15:09:00 EDT, Route to Pharmacy Electronically, [facility]/pharmacy #0315, Partial fill upon patient request if the prescription is for a schedule II o... Start Date: 12/25/22 Stop Date: 06/23/23 Status: Ordered primidone 250 mg oral tablet 250 mg, 1, tablet, By Mouth, Daily at bedtime, for 30 days, # 30 tablet, Refills 5, Tot. Refills 5,Hard Stop 12/25/22 15:09:00 EDT, 06/28/22 15:09:00 EST, Route to Pharmacy Electronically, [facility]/pharmacy #0315, Partial fill upon patient request if the... Start Date: 06/28/22 Stop Date: 12/25/22 Status: Ordered primidone 50 mg oral tablet 50 mg, 1, tablet, By Mouth, Daily at bedtime, for 30 days, take with primidone 250 mg, for total dos eof 300 mg hs, # 30 tablet, Refills 5, Tot. Refills 5, Hard Stop 12/25/22 15:09:00 EDT, 06/28/22 15:09:00 EST, [facility] Start Date: 06/28/22 Stop Date: 12/25/22 Status: Ordered primidone 50 mg oral tablet 50 mg, 1, tablet, By Mouth, Daily at bedtime, take with primidone 250 mg, for total dos eof 300 mg hs, # 30 tablet, Refills 5, Tot. Refills 5, Maintenance, 12/25/22 15:09:00 EDT, Route to Pharmacy Electronically, [facility], Partial fill u... Start Date: 12/25/22 Stop Date: 06/23/23 Status: Ordered spironolactone 25 mg oral tablet [...] Refills, Maintenance, 08/01/22 8:02:00 EDT, [facility], 160, cm, 05/06/22 10:53:00 EST, Height, 87.3, [...] capsule, 3 Refills, Maintenance, 04/10/20 13:57:00 EST, [facility]/pharmacy #0315, 158, cm, 02/24/20 9:14:00 [...] Active Family history of some sort of FOUNDATION DRILL OPERATOR cancer in her mother Confirmed Active [...] 03/02/16 Sex Laboratory * Event Display: Non BH Lab Results Authored Date: * Event Display: Non BH Lab Results Authored Date: Cardiology Outpatient Note * Jania Hutson: PERFORM, SIGN, VERIFY Event Display: Cardiology Note Office Authored Date: [id number] Patient: KENA RIOS Age: 50 years Sex: Female : 1965 Associated Diagnoses: None Author: Caryl Jania 03/08/2016 To Whom It May Concern: Light Duty Recommendations Light duty: until further notice. No repetitive bending or stooping Light sedentary work Dr Sobeida Contreras Patient Care team information Care Team Personnel Name: Loretta Schwab RN Position: S RN Member Role: Primary Care Nurse Name: Jaun Eason DO Position: [facility] Physician - Primary Care Member Role: PCP Address: Address: [address] [place], [place] [id number] [place] [address]- Name: Elsa Tee RN Position: S RN Member Role: Primary Care Nurse Name: Tesha Matias NP Position: Reference Physician Member Role: Primary Care Nurse Address: Address: [address] [place] [address] Name: Robert Cherry RN Position: [facility] RN Member Role: Primary Care Nurse Name: Elina Greene LPN Position: S RN Member Role: Primary Care Nurse Name: Lamar Talbert RN Position: [facility] RN Supv Member Role: Primary Care Nurse Name: Rafael Ho RN Position: [facility] ED RN W/OE and Tasks Member Role: Primary Care Nurse Name: Kayley Baker RN Position: S RN Member Role: Primary Care Nurse Name: Christine Mays RN Position: S RN Member Role: Primary Care Nurse Name: Farzana Perez RN Position: S RN Member Role: Primary Care Nurse Care Team Related Persons Name: RONAK RIOS Address: [address] [place] [address] Name: KENA RIOS Address: [address] [place] [address] Name: RANDALL RIOS Address: [address] [place] [address]
--- OUTSIDE RECORDS SUMMARY | 2024-02-21 23:22 | XMS_ITS | Continuity of Care Document ---
Author Organization [facility] Address [address] [place] [address]- Care Team Providers Care Cost Manager Name Role Phone Jenaro LEEJaun Primary Care Physician [place] [facility] [place] - 11/21/21 [facility] [address] [place] [address]- [place] Allergies, Adverse Reactions, Alerts Substance Reaction [...] 11/08/21 13:29:00 EDT, Route to Pharmacy Electronically, [facility]/pharmacy #0315, 160, cm, 11/01/21 14:10:00 EDT, Height, 87.9, kg, 10/04/21 1:04:00 EDT, Dry... Start Date: 11/08/21 Stop Date: 03/08/22 Status: Ordered digoxin 0.125 mg oral tablet 1, tablet, By Mouth, Daily, for 30 days, # 30 tablet, Refills 6, Tot. Refills 6, Physician Stop 02/07/22 10:21:00 EDT, 07/12/21 10:21:00 EDT, Route to Pharmacy Electronically, [facility]/pharmacy #0315, 160, cm, 06/28/21 10:44:00 EST, Height, 85.9, kg, 03/30... Start Date: 07/12/21 Stop Date: 02/07/22 Status: Ordered Durable Medical Equipment See Instructions, Maintenance, 03/23/21 10:38:00 EST, Supply Start Date: 03/23/21 Status: Ordered Entresto 49 mg-51 mg oral tablet 1 tablet, By Mouth, 2 times a day, # 60 tablet, 5 Refills, Maintenance, 11/11/21 7:16:00 EDT, Tablet, [facility]/pharmacy #0315, this is an increased dose, 1 [...] Maintenance,09/07/21 15:17:00 EDT, Route to Pharmacy Electronically, [facility]/pharmacy #0315, Partial fill upon patient request if the prescription is for a schedule II... Start Date: 09/07/21 Stop Date: 04/05/22 Status: Ordered Provera 5 mg oral tablet 1 tablet = 5 mg, By Mouth, Daily, # 90 tablet, 4 Refills, Maintenance, 06/08/21 9:18:00 EST, Tablet, [facility]/pharmacy #0315, Partial fill upon patient request [...] Active Family history of some sort of MEDICARE INTERVIEWER cancer in her mother(Confirmed) Active GERD without [...]
--- OUTSIDE RECORDS SUMMARY | 2024-02-21 23:22 | XMS_ITS | Continuity of Care Document ---
Author Organization [facility] Address [address] [place] [address]- Care Team Providers Care Electric Motor Repairer Name Role Phone Jaun Eason DO Primary Care Physician Encounter [facility] [place] Date(s): 01/01/21 - 01/31/[address] [address]- Allergies, Adverse Reactions, Alerts Substance Reaction Severity [...] 10/23/20 12:37:00 EDT, Route to Pharmacy Electronically, [facility] 97[facility], 160, cm, 09/10/20 15:03:00 EDT, Height, 73.4, kg, 09/10/20 9:18:00 EDT, Dry... Start Date: 10/23/20 Status: Ordered digoxin 0.125 mg oral tablet 1, tablet, By Mouth, Daily, # 90 tablet, Refills 1, [facility], [facility], 160, cm, 12/10/20 9:01:00 EDT, Height, 73.4, kg, 09/10/20 9:18:00 EDT, Dry Weight Start Date: 12/13/20 Status: Ordered Entresto 49 mg-51 mg oral tablet 1 tablet, By Mouth, 2 times a day, # 60 tablet, 11 Refills, Maintenance, 07/01/20 11:14:00 EST, Tablet, [facility]/pharmacy #0315, 1 tablet By Mouth [...] Active Family history of some sort of DIRECTOR OF OPTIMIZATION cancer in her mother(Confirmed) Active GERD without [...]
--- OUTSIDE RECORDS SUMMARY | 2024-02-21 23:22 | XMS_ITS | Continuity of Care Document ---
Author Organization [facility] Address [address] [place] [address]- Care Team Providers Care Pipeliner Name Role Phone Jenaro Jaun Primary Care Physician [place] [facility] [place] [facility] [place] [id number] Date(s): 04/28/22 - 05/28/22 [facility] [address] [place] [address]- Attending Physician: Jerod Denton Admitting Physician: AdmtrJerod [...] 03/16/22 8:34:00 EST, Route to Pharmacy Electronically, [facility], 160, cm, 01/13/22 11:06:00 EDT, Height, 87.9, kg, 10/04/21 1:04:00 EDT, Dry Weight Start Date: 03/16/22 Stop Date: 04/15/22 Status: Ordered Durable Medical Equipment See Instructions, Maintenance, 03/23/21 10:38:00 EST, Supply Start Date: 03/23/21 Status: Ordered Entresto 49 mg-51 mg oral tablet 1 tablet, By Mouth, 2 times a day, # 60 tablet, 5 Refills, Maintenance, 05/26/22 16:30:00 EST, Tablet, [facility] #[id number], WE DO NOT FILL HER PRIMADONE, 1 tablet By Mouth 2 times a day, 160, cm, 05/06/22 10:53:00 EST, Height, 87.3, kg, 03/27/22 1:3... Start Date: 05/26/22 Status: Ordered Fish Oil By Mouth, 0 [...] Maintenance,11/30/21 14:12:00 EDT, Route to Pharmacy Electronically, [facility]/pharmacy #0315, Partial fill upon patient request [...] 11/30/21 14:13:00 EDT, Route to Pharmacy Electronically, [facility]/pharmacy #0315, Partial fill upon... Start Date: 11/30/21 Stop Date: 05/29/22 Status: Ordered Provera 5 mg oral tablet 1 tablet = 5 mg, By Mouth, Daily, # 90 tablet, 4 Refills, Maintenance, 06/08/21 9:18:00 EST, Tablet, [facility]/pharmacy #0315, Partial fill upon patient request if the prescription is for a schedule II opioid drug., 160, cm, 06/08/21 8:40:00 EST, Height, 85... Start Date: 06/08/21 Status: Ordered spironolactone 25 mg oral tablet 1, tablet, By Mouth, Daily, # 90 tablet, Refills 1, Maintenance, 01/02/22 8:06:00 EDT, Route to [facility]acy [facility], [facility], 160, cm, 12/24/21 10:28:00 EDT, Height, 87.9, kg, 10/04/21 1:04:00 EDT, Dry Weight Start Date: 01/02/22 Status: Ordered torsemide 20 mg oral tablet 0.5 tablet = 10 mg, By Mouth, Daily, # 15 tablet, 3 Refills, Maintenance, 11/30/21 16:51:00 EDT, [facility]/pharmacy #0315, Partial fill upon patient request if the prescription is for a schedule II opioid drug., 160, cm, 11/30/21 14:40:00 EDT, Height, 87.9,... Start Date: 11/30/21 Status: Ordered torsemide 20 mg oral tablet 0.5 tablet, By Mouth, Daily, # 15 tablet, 3 Refills, Maintenance, 03/23/22 8:36:00 EST, [facility], 160, cm, 01/13/22 11:06:00 EDT, Height, 87.9, [...] Active Family history of some sort of PYROTECHNICS PRESS TENDER cancer in her mother Confirmed Active [...] 2010; entered on: 03/02/16 Sex Note * Event Display: Non Lab Results Authored Date: * Event Display: Non Lab Results Authored Date: Cardiology Outpatient Note * Jania Hutson: PERFORM, SIGN, VERIFY Event Display: Cardiology Note Office Authored Date: [id number] Patient: KENA RIOS Age: 50 years Sex: Female : 1965 Associated Diagnoses: None Author: Jania Hutson 03/08/2016 To Whom It May Concern: Light Duty Recommendations Light duty: until further notice. No repetitive bending or stooping Light sedentary work Dr Sobeida Contreras Patient Care team information Care Team Personnel Name: Loretta Schwab RN Position: [facility] RN Member Role: Primary Care Nurse Name: Jania Richmond RN Position: S RN Member Role: Primary Care Nurse Name: Jaun Eason DO Position: [facility] Physician (General Medicine) Member Role: PCP Address: Address: [address] [place], [place] [id number] [place], [place] [address] Name: Elsa Tee RN Position: S RN Member Role: Primary Care Nurse Name: Tesha Matias NP Position: Reference Physician Member Role: Primary Care Nurse Address: Address: [address] [place] [address]- Name: Robert Cherry RN Position: S RN Member Role: Primary Care Nurse Name: Elina Greene LPN Position: S RN Member Role: Primary Care Nurse Name: Lamar Talbert RN Position: S RN Supv Member Role: Primary Care Nurse Name: Rafael Ho RN Position: [facility] ED RN W/OE and Tasks Member Role: Primary Care Nurse Name: Kayley Baker RN Position: S RN Member Role: Primary Care Nurse Name: Christine Mays RN Position: S RN Member Role: Primary Care Nurse Name: Farzana Perez Position: S RN Member Role: Primary Care Nurse Care Team Related Persons Name: RONAK RIOS Address: [address] [place] [address] Name: KENA RIOS Address: [address] [place] [address] Name: RANDALL RIOS Address: [address] [place] [address]
--- OUTSIDE RECORDS SUMMARY | 2024-02-21 23:22 | XMS_ITS | Continuity of Care Document ---
Author Organization [facility] Address [address] [place] [address]- Care Team Providers Care Faith Healer Name Role Phone Arlin HENAO ([facility] [place] Rinku Bonner Primary Care Ph ysician Encounter [facility] [place] Date(s): 05/17/19 - 05/27/19 [facility] [address] [place] [address]- [facility] Attending Physician: Jerod Denton Admitting Physician: [...] 03/21/18 17:24:02 EST, Route to Pharmacy Electronically, [id number], [facility]/pharmacy #0315, this replaces bisoprolol that is unav... Start Date: 03/21/18 Stop Date: 03/16/19 Status: Ordered digoxin 0.125 mg oral tablet 125 mcg, 1, tablet, By Mouth, Daily, # 90 tablet, Refills 1, Tot. Refills 1, Maintenance, 09/27/18 10:11:07 EDT, Route to Pharmacy Electronically, [id number], [facility] Start Date: 09/27/18 Stop Date: 03/26/19 Status: Ordered Entresto 49 mg-51 mg oral [...]
--- OUTSIDE RECORDS SUMMARY | 2024-02-21 23:22 | XMS_ITS | Continuity of Care Document ---
Author Organization [facility] Address [address] [place] [address]- Care Team Providers Care Social Media Senior Associate Name Role Phone Jaun Eason DO Primary Care Physician Encounter [facility] [place] Date(s): 12/04/20 - 04/03/[address] [address]- Attending Physician: Meenu Griffin MD Admitting Physician: Meenu Grfifin MD Referring Physician: Jaun Eason DO Allergies, [...] 10/23/20 12:37:00 EDT, Route to Pharmacy Electronically, [facility] 33352, 160, cm, 09/10/20 15:03:00 EDT, Height, 73.4, kg, 09/10/20 9:18:00 EDT, Dry... Start Date: 10/23/20 Status: Ordered digoxin 0.125 mg oral tablet 1, tablet, By Mouth, Daily, # 90 tablet, Refills 1, Route to Pharmacy Electronically, [facility] STORE 93941, 160, cm, 12/10/20 9:01:00 EDT, Height, 73.4, [...] 04/02/21 14:34:00 EST, [facility] Partial fill upon patient request if the prescription is for a schedule II opioid drSukhjinder.. Start Date: 04/02/21 Stop Date: 06/01/21 Status: Ordered Entresto 49 mg-51 mg oral tablet 1 tablet, By Mouth, 2 times a day, # 60 tablet, 11 Refills, Maintenance, 07/01/20 11:14:00 EST, Tablet, [facility]/pharmacy #0315, 1 tablet By Mouth [...] Active Family history of some sort of DROP HAMMER MECHANIC cancer in her mother(Confirmed) Active GERD without [...]
--- OUTSIDE RECORDS SUMMARY | 2024-02-21 23:22 | XMS_ITS | Continuity of Care Document ---
Author Organization [facility] Address [address] [place] [address]- Care Team Providers Care Guinea Pig Breeder Name Role Phone Jaun Eason DO Primary Care Physician Encounter [facility] [place] [facility] R [id number] Date(s): 12/04/20 - 04/03/21 [facility] [address] [place], [place] [address] Attending Physician: Harrison Shearer MD [...] 10/23/20 12:37:00 EDT, Route to Pharmacy Electronically, [facility] 96794, 160, cm, 09/10/20 15:03:00 EDT, Height, 73.4, kg, 09/10/20 9:18:00 EDT, Dry... Start Date: 10/23/20 Status: Ordered digoxin 0.125 mg oral tablet 1, tablet, By Mouth, Daily, # 90 tablet, Refills 1, Route to Pharmacy Electronically, [facility] STORE 26681, 160, cm, 12/10/20 9:01:00 EDT, Height, 73.4, [...] 04/02/21 14:34:00 EST, Route to Pharmacy Electronically, [facility]/pharmacy #0315, Partial fill upon patient request if the prescription is for a schedule II opioid .. Start Date: 04/02/21 Stop Date: 06/01/21 Status: Ordered Entresto 49 mg-51 mg oral tablet 1 tablet, By Mouth, 2 times a day, # 60 tablet, 11 Refills, Maintenance, 07/01/20 11:14:00 EST, Tablet, [facility]/pharmacy #0315, 1 tablet By Mouth [...] Active Family history of some sort of SENIOR ASSOCIATE cancer in her mother(Confirmed) Active GERD without [...]
--- OUTSIDE RECORDS SUMMARY | 2024-02-21 23:22 | XMS_ITS | Continuity of Care Document ---
Author Organization [facility] Address Unknown Care Team Providers Care Clothes Designer Name Role Phone Jaun Eason DO Primary Care Physician Encounter [facility] Date(s): 03/01/21 - 03/31/21 [facility] Allergies, Adverse Reactions, Alerts Substance [...] 10/23/20 12:37:00 EDT, Route to Pharmacy Electronically, [facility] 74084, 160, cm, 09/10/20 15:03:00 EDT, Height, 73.4, kg, 09/10/20 9:18:00 EDT, Dry... Start Date: 10/23/20 Status: Ordered digoxin 0.125 mg oral tablet 1, tablet, By Mouth, Daily, # 90 tablet, Refills 1, Route to Pharmacy Electronically, [facility] 54439, 160, cm, 12/10/20 9:01:00 EDT, Height, 73.4, kg, 09/10/20 9:18:00 EDT, Dry Weight Start Date: 12/13/20 Status: Ordered Durable Medical Equipment See Instructions, Maintenance, 03/23/21 10:38:00 EST, Supply Start Date: 03/23/21 Status: Ordered Entresto 49 mg-51 mg oral tablet 1 tablet, By Mouth, 2 times a day, # 60 tablet, 11 Refills, Maintenance, 07/01/20 11:14:00 EST, Tablet, [facility]/pharmacy #0315, 1 tablet By Mouth 2 times [...] Active Family history of some sort of COST ACCOUNTING MANAGER cancer in her mother(Confirmed) Active GERD [...]
--- OUTSIDE RECORDS SUMMARY | 2024-02-21 23:22 | XMS_ITS | Continuity of Care Document ---
Author Organization [facility] Address [address] [place] [address]- Care Team Providers Care Fried Cake Maker Name Role Phone Arlin HENAO ([facility])Rinku Primary Care ysician Encounter [facility] [place] Date(s): 09/24/19 - 11/09/19 [facility] [address] [place] [address] [facility] Attending Physician: Demetrice Chase MD Admitting Physician: Demetrice Chase MD Referring Physician: Arlin HENAO ([facility])Rinku Allergies, Adverse Reactions, Alerts Substance Reaction Severity [...] 06/28/19 7:40:00 EST, Route to Pharmacy Electronically, [facility]/pharmacy #9861, this replaces bisoprololthat is unavailable please contact office once back... Start Date: 06/28/19 Stop Date: 08/21/20 Status: Ordered digoxin 0.125 mg oral tablet 125 mcg, 1, tablet, By Mouth, Daily, # 90 tablet, Refills 2, Tot. Refills 2, Maintenance, 07/15/19 8:57:00 EDT, Route to Pharmacy Electronically, [facility]/pharmacy #0315, 160, cm, 06/28/19 7:51:00 EST, Height, 87.4, kg, 02/11/19 2:25:00 EDT, Dry Weight Start Date: 07/15/19 Stop Date: 04/10/20 Status: Ordered Entresto 49 mg-51 mg oral tablet 1 tablet, By Mouth, 2 times a day, # 60 tablet, 11 Refills, Maintenance, 05/17/19 16:00:00 EST, Tablet, [facility]/pharmacy #0315, 1 [...]
--- OUTSIDE RECORDS SUMMARY | 2024-02-21 23:22 | XMS_ITS | Continuity of Care Document ---
Author Organization [facility] Address Unknown Care Team Providers Care Processor Solid Propellant Name Role Phone Jaun Eason DO Primary Care Physician [place] [facility] [place](s): 09/07/21 - 10/07/21 [facility] Attending Physician: Jerod Denton Admitting Physician: Jerod Denton Referring Physician: Jerod Denton Allergies, Adverse Reactions, Alerts Substance Reaction Severity Status benzonatate Persistent Moderate Active Egg Allergy Active Immunizations Given and Recorded Vaccine Date [...] 10/23/20 12:37:00 EDT, Route to Pharmacy Electronically, [facility] 38432, 160, cm, 09/10/20 15:03:00 EDT, Height, 73.4, kg, 09/10/20 9:18:00 EDT, Dry... Start Date: 10/23/20 Status: Ordered celecoxib 200 mg oral capsule TAKE 1 CAPSULE BY MOUTH TWICE A DAY Start Date: 10/03/21 Status: Ordered digoxin 0.125 mg oral tablet 1, tablet, By Mouth, Daily, for 30 days, # 30 tablet, Refills 6, Tot. Refills 6, Physician Stop 02/07/22 10:21:00 EDT, 07/12/21 10:21:00 EDT, Route to Pharmacy Electronically, [facility]/pharmacy #0315, 160, cm, 06/28/21 10:44:00 EST, Height, 85.9, kg, 03/30... Start Date: 07/12/21 Stop Date: 02/07/22 Status: Ordered Durable Medical Equipment See Instructions, Maintenance, 03/23/21 10:38:00 EST, Supply Start Date: 03/23/21 Status: Ordered Entresto 49 mg-51 mg oral tablet 1 tablet, By Mouth, 2 times a day, # 60 tablet, 5 Refills, Maintenance, 07/05/21 10:48:00 EDT, Tablet, [facility]/pharmacy #0315, 1 tablet By Mouth 2 [...] Maintenance,09/07/21 15:17:00 EDT, Route to Pharmacy Electronically, [facility]/pharmacy #0315, Partial fill upon patient request if the prescription is for a schedule II... Start Date: 09/07/21 Stop Date: 04/05/22 Status: Ordered Provera 5 mg oral tablet 1 tablet = 5 mg, By Mouth, Daily, # 90 tablet, 4 Refills, Maintenance, 06/08/21 9:18:00 EST, Tablet, [facility]/pharmacy #0315, Partial fill upon patient request [...] Active Family history of some sort of GAMMA FACILITIES OPERATOR cancer in her mother(Confirmed) Active GERD [...]
--- OUTSIDE RECORDS SUMMARY | 2024-02-21 23:22 | XMS_ITS | Continuity of Care Document ---
Author Organization [facility] Address [address] [place] [address]- Care Team Providers Care Math Coach Name Role Phone Jenaro LEEJaun Primary Care Physician Encounter [facility] [place] Date(s): 09/03/20 - 10/03/20 [facility] [address] [place] [address] Attending Physician: Admtr, Ar8 Admitting Physician: Admtr, [...] 06/28/19 7:40:00 EST, Route to Pharmacy Electronically, [facility]/pharmacy #0471, this replaces bisoprololthat is unavailable please contact office once back... Start Date: 06/28/19 Stop Date: 08/21/20 Status: Ordered digoxin 0.125 mg oral tablet 125 mcg, 1, tablet, By Mouth, Daily, # 90 tablet, Refills 1, Tot. Refills 1, Maintenance, 07/20/20 9:15:00 EDT, Route to Pharmacy Electronically, [facility]/pharmacy #0315, 160, cm, 05/27/20 9:55:00 EST, [...] Active Family history of some sort of CREDIT CONTROL ADMINISTRATOR cancer in her mother(Confirmed) Active GERD without [...]
--- OUTSIDE RECORDS SUMMARY | 2024-02-21 23:22 | XMS_ITS | Continuity of Care Document ---
Author Organization [facility] Address [address] [place] [address], [address] [place] [address]- Care Team Providers Care Pole Peeler Name Role Phone Jaun Eason DO Primary Care Physician [place] [facility] [place] 01/05/23 [facility] [employer] [facility] [address] [facility], [address] [place], [place] [address] Allergies, Adverse Reactions, Alerts Substance [...] tablet, 0 Refills, Maintenance, 07/29/22 9:15:00 EDT, [facility]/pharmacy #[id number], Partial fill upon patient request if the prescription is for a schedule II opioid... Start Date: 07/29/22 Status: Ordered Entresto 49 mg-51 mg oral tablet 1 tablet, By Mouth, 2 times a day, # 28 tablet, 0 Refills, Maintenance, 07/15/22 8:37:00 EDT, [facility]/pharmacy #[id number], 1 tablet By Mouth 2 times [...] Refills, Maintenance, 08/01/22 8:02:00 EDT, [facility] STORE [id number], 160, cm, 05/06/22 10:53:00 EST, Height, 87.3, [...] Active Family history of some sort of YIELD ENGINEER cancer in her mother Confirmed Active GERD [...] Primary Care Member Role: PCP Address: Address: [address] [place], [place] [address] [place] [address]- Name: Elsa Tee RN Position: S RN Member Role: Primary Care Nurse Name: Tesha Matias NP Position: Reference Physician Member Role: Primary Care Nurse Address: Address: [address] [place] [address]- Name: Robert Cherry RN Position: [facility] RN Member Role: Primary Care Nurse Name: Elina Greene LPN Position: [facility] RN Member Role: Primary Care Nurse Name: Lamar Talbert RN Position: [facility] RN Supv Member Role: Primary Care Nurse Name: Rafael Ho RN Position: [facility] ED RN W/OE and Tasks Member Role: Primary Care Nurse Name: Kayley Baker RN Position: [facility] RN Member Role: Primary Care Nurse Name: Christine Mays RN Position: [facility] RN Member Role: Primary Care Nurse Name: Farzana Perez RN Position: [facility] RN Member Role: Primary Care Nurse Care Team Related Persons Name: RONAK RIOS Address: home [address] [place] [address] Name: KENA RIOS Address: [address] [place] [address] Name: RANDALL RIOS Address: [address] [place] [address]
--- OUTSIDE RECORDS SUMMARY | 2024-02-21 23:22 | XMS_ITS | Continuity of Care Document ---
[facility] Address [address] [place] [address]- Care Team Providers Care Glass Beveller Name Role Phone Arlin HENAO ([facility] [place]), Rinku Bonner Primary Care Ph ysician [place] [facility] [place]13[place]20 - 08/12/20 [facility] [address] [address] Allergies, Adverse Reactions, Alerts [...] 06/28/19 7:40:00 EST, Route to Pharmacy Electronically, [facility]/pharmacy #[id number], this replaces bisoprololthat is unavailable please contact office once back... Start Date: 06/28/19 Stop Date: 08/21/20 Status: Ordered digoxin 0.125 mg oral tablet 125 mcg, 1, tablet, By Mouth, Daily, # 90 tablet, Refills 1, Tot. Refills 1, Maintenance, 07/20/20 9:15:00 EDT, Route to Pharmacy Electronically, [facility]/pharmacy #[id number], 160, cm, 05/27/20 9:55:00 EST, Height, 82.9, kg, 05/06/20 12:35:00 EST, Dry Weight Start Date: 07/20/20 Stop Date: 01/16/21 Status: Ordered Entresto 49 mg-51 mg oral tablet 1 tablet, By Mouth, 2 times a day, # 60 tablet, 11 Refills, Maintenance, 07/01/20 11:14:00 EST, Tablet, [facility]/pharmacy #[id number], 1 tablet By Mouth 2 times [...]
--- OUTSIDE RECORDS SUMMARY | 2024-02-21 23:22 | XMS_ITS | Continuity of Care Document ---
Author Organization [facility] Address [address] [place] [address]- Care Team Providers Care City Designer Name Role Phone Jaun Eason DO Primary Care Physician [place] [facility] [place]23 [place] 07/21/23 [facility] [address] [place] [address]- [place] Allergies, Adverse Reactions, Alerts Substance Reaction [...] Refills, Maintenance, 08/01/22 8:02:00 EDT, [id number], 160, cm, 05/06/22 10:53:00 EST, Height, 87.3, [...] Active Family history of some sort of PINSETTER MECHANIC AUTOMATIC cancer in her mother Confirmed Active GERD [...] Primary Care Member Role: PCP Address: Address: [address] [place] [address] [address] [place] [address]- [place] Name: Tesha Matias NP Position: Reference Physician Member Role: Primary Care Nurse Address: Address: [address] [place] [address]- [place] Name: Robert Cherry RN Position: S RN Member Role: Primary Care Nurse Name: Elina Greene LPN Position: S RN Member Role: Primary Care Nurse Name: Lamar Talbert RN Position: [facility] RN Supv Member Role: Primary Care Nurse [...] Persons Name: RONAK RIOS Address: home [address] [place], [place] Name: RIOS NOEALEX Address: home [address] [place], [place] Name: BLANCA RANDALL Address: home [address] [place], [place]
--- OUTSIDE RECORDS SUMMARY | 2024-02-21 23:22 | XMS_ITS | Continuity of Care Document ---
Author Organization [facility] Address [address] [address]- Care Team Providers Care Hair Assistant Name Role Phone Arlin HENAO ([facility] [place]), Rinku Bonner Primary Care Ph ysician Encounter [facility] Date(s): 05/28/19 - 08/08/[address] [facility] [address] [address]- [facility] Attending Physician: Christine Funk CNM Admitting Physician: [...] EST, Route to Pharmacy Electronically, [facility]/pharmacy #[id number], this replaces bisoprololthat is unavailable please contact [...]
--- OUTSIDE RECORDS SUMMARY | 2024-02-21 23:22 | XMS_ITS | Continuity of Care Document ---
Author Organization [facility] Address [address] [place] [address], [address] [place] [address]- Care Team Providers Care Web Marketing Assistant Name Role Phone Jaun Eason DO Primary Care Physician [id number] Date[facility] 04/12/23 - 04/19/23 [facility] [employer] [address] [facility], [address] [place] [address]- Attending Physician: Twyla Ashford MD Referring Physician: Phuc James Allergies, Adverse [...] tablet, 0 Refills, Maintenance, 07/15/22 8:37:00 EDT, [facility]/pharmacy #[id number], 1 tablet By Mouth 2 [...] tablet, 3 Refills, Maintenance, 08/01/22 8:02:00 EDT, [facility] STORE [id number], 160, cm, 05/06/22 10:53:00 EST, Height, 87.3, [...] capsule, 3 Refills, Maintenance, 04/10/20 13:57:00 EST, [facility]/pharmacy #[id number], 158, cm, 02/24/20 9:14:00 EST, [...] Active Family history of some sort of LPN cancer in her mother Confirmed Active GERD [...] oldest [Reference Range]: 1 Height 160.0 cm (04/12/23 9:49 AM) Weight 90.00 kg (04/12/23 9:49 AM) Body Mass Index [18.5-24.99 kg/m2] 35.16 kg/m2 *>HHI* (04/12/23 9:49 AM) Blood Pressure [90-138/55-84 mm Hg] 100/ 60mm Hg (04/12/23 9:49 AM) Blood pressure sites Arm, left (04/12/23 9:49 AM) Weight Obtained Via Standing scale (04/12/23 9:49 AM) Social History Social History Type Response Smoking Status Former smoker; Other : Quit 2010; entered on: 03/02/16 Sex Patient Care team information Care Team Personnel Name: Loretta Schwab RN Position: S RN Member Role: Primary Care Nurse Name: Jaun Eason DO Position: S Physician - Primary Care Member Role: PCP Address: Address: [address] [place] [address]- Name: Elsa Tee RN Position: S RN Member Role: Primary Care Nurse Name: Tesha Matias NP Position: Reference Physician Member Role: Primary Care Nurse Address: Address: [address] [place] [address]- Name: Robert Cherry RN Position: S RN Member Role: Primary Care Nurse Name: Elina Greene LPN Position: [facility] RN Member Role: Primary Care Nurse Name: Lamar Talbert RN Position: [facility] RN Supv Member Role: Primary Care Nurse Name: Rafael Ho RN Position: [facility] ED RN W/OE and Tasks Member Role: Primary Care Nurse Name: Kayley Baker RN Position: [facility] RN Member Role: Primary Care Nurse Name: Christine Mays RN Position: [facility] RN Member Role: Primary Care Nurse Name: Farzana Perez RN Position: [facility] RN Member Role: Primary Care Nurse Care Team Related Persons Name: RONAK RIOS Address: home [address] [place] [address] Name: RIOS KENA Address: [address] [place] [address] Name: RANDALL RIOS Address: [address] [place] [address]
--- OUTSIDE RECORDS SUMMARY | 2024-02-21 23:22 | XMS_ITS | Continuity of Care Document ---
Author Organization [facility] [employer] [facility] Address [address] [facility], [address] [place] [address]- Care Team Providers Care Director Of Rehabilitative Services Name Role Phone Jaun Eason DO [id number] - [facility]11[facility] [employer] [facility] [address] [facility], [address] [place], [place] [address] Attending Physician: Twyla Ashford MD Allergies, Adverse Reactions, Alerts Substance Reaction [...] tablet, 0 Refills, Maintenance, 07/29/22 9:15:00 EDT, [id number], Partial fill upon patient request if the prescription is for a schedule II opioid... Start Date: 07/29/22 Status: Ordered Entresto 49 mg-51 mg oral tablet 1 tablet, By Mouth, 2 times a day, # 28 tablet, 0 Refills, Maintenance, 07/15/22 8:37:00 EDT, [facility]/pharmacy #[id number], 1 tablet By Mouth 2 [...] 06/28/22 15:09:00 EST, [id number], Partial fill upon patient request [...] Refills, Maintenance, 08/01/22 8:02:00 EDT, [facility], 160, cm, 05/06/22 10:53:00 EST, Height, 87.3, [...] capsule, 3 Refills, Maintenance, 04/10/20 13:57:00 EST, [facility]/pharmacy #[id number], 158, cm, 02/24/20 9:14:00 EST, [...] Active Family history of some sort of MOBILE BATTERY TECHNICIAN cancer in her mother Confirmed Active GERD [...] Care Nurse Name: Jaun Eason DO Position: [facility] Physician - Primary Care Member Role: PCP Address: Address: [address] [place] [address] [address] [place], [place] - [place] Name: Elsa Tee RN Position: S RN Member Role: Primary Care Nurse Name: Tesha Matias NP Position: Reference Physician Member Role: Primary Care Nurse Address: Address: [address] [place] [address]- Name: Robert Cherry RN Position: S RN Member Role: Primary Care Nurse Name: Elina Greene LPN Position: S RN Member Role: Primary Care Nurse Name: Lamar Talbert RN Position: [facility] RN Supv Member Role: Primary Care Nurse Name: Rafael Ho RN Position: [facility] ED RN W/OE and Tasks Member Role: Primary Care Nurse Name: Kayley Baker RN Position: S RN Member Role: Primary Care Nurse Name: Christine Mays RN Position: S RN Member Role: Primary Care Nurse Name: Farzana Perez RN Position: [facility] RN Member Role: Primary Care Nurse Care Team Related Persons Name: IQRA RIOSINA Address: [address] [place], [place] Name: KENA RIOS Address: [address] [place], [place] Name: RIOS RANDALL Address: [address] [place] [address]
--- OUTSIDE RECORDS SUMMARY | 2024-02-21 23:22 | XMS_ITS | Continuity of Care Document ---
Author Organization [facility] Address [address] [place] [address]- Care Team Providers Care Safety Person Name Role Phone Jaun Eason DO Primary Care Physician En[facility] Date(s): 09/24/21 - 01/22/22 [facility] [address] [place] [address] Attending Physician: Meenu Griffin MD Admitting Physician: [...] 11/08/21 13:29:00 EDT, [id number], 160, cm, 11/01/21 14:10:00 EDT, Height, 87.9, kg, 10/04/21 1:04:00 EDT, Dry... Start Date: 11/08/21 Stop Date: 03/08/22 Status: Ordered digoxin 0.125 mg oral tablet 1, tablet, By Mouth, Daily, for 30 days, # 30 tablet, Refills 6, Tot. Refills 6, Physician Stop 02/07/22 10:21:00 EDT, 07/12/21 10:21:00 EDT, [id number], 160, cm, 06/28/21 10:44:00 EST, Height, 85.9, kg, 03/30... Start Date: 07/12/21 Stop Date: 02/07/22 Status: Ordered Durable Medical Equipment See Instructions, Maintenance, 03/23/21 10:38:00 EST, Supply Start Date: 03/23/21 Status: Ordered Entresto 49 mg-51 mg oral tablet 1 tablet, By Mouth, 2 times a day, # 60 tablet, 5 Refills, Maintenance, 11/11/21 7:16:00 EDT, Tablet, [facility]/pharmacy #0315, this is an increased dose, [...] Maintenance,11/30/21 14:12:00 EDT, Route to Pharmacy Electronically, [facility]/pharmacy #[id number], Partial fill upon patient request [...] 11/30/21 14:13:00 EDT, Route to Pharmacy Electronically, [facility]/pharmacy #0315, Partial fill upon... Start Date: 11/30/21 Stop Date: 05/29/22 Status: Ordered Provera 5 mg oral tablet 1 tablet = 5 mg, By Mouth, Daily, # 90 tablet, 4 Refills, Maintenance, 06/08/21 9:18:00 EST, Tablet, [facility]/pharmacy #0315, Partial fill upon patient request if the prescription is for a schedule II opioid drug., 160, cm, 06/08/21 8:40:00 EST, Height, 85... Start Date: 06/08/21 Status: Ordered spironolactone 25 mg oral tablet 1, tablet, By Mouth, Daily, # 90 tablet, Refills 1, Maintenance, 01/02/22 8:06:00 EDT, Route to Pharmacy Electronically, [facility] STORE 31305, 160, cm, 12/24/21 10:28:00 EDT, Height, 87.9, kg, 10/04/21 1:04:00 EDT, Dry Weight Start Date: 01/02/22 Status: Ordered torsemide 20 mg oral tablet 0.5 tablet = 10 mg, By Mouth, Daily, # 15 tablet, 3 Refills, Maintenance, 11/30/21 16:51:00 EDT, [facility]/pharmacy #[id number], Partial fill upon patient request [...] Active Family history of some sort of JITNEY DRIVER cancer in her mother Confirmed Active GERD [...] on: 03/02/16 Sex Patient Care team information Personnel Name: Jaun Eason DO Address: Address: [address] [place] [address] [address] [place], [place] [address]
--- OUTSIDE RECORDS SUMMARY | 2024-02-21 23:23 | XMS_ITS | Continuity of Care Document ---
Author Organization [facility] Address [address] [place] [address]- Care Team Providers Care Rn Gyn Name Role Phone Ebenezervalente Jaun LEE Primary Care Physician Encounter [facility] Date(s): 02/26/23 - 02/26/[address] [address]- Discharge Disposition: A-D/C Home Attending Physician: Jeremie [...] tablet, 0 Refills, Maintenance, 07/15/22 8:37:00 EDT, [facility]/pharmacy #[id number], 1 tablet By Mouth 2 times [...] # 60 tablet, Refills 0, Maintenance, 11/11/22 9:43:00EDT, Partial fill upon patient request if the [...] Refills, Maintenance, 08/01/22 8:02:00 EDT, [facility], 160, cm, 05/06/22 10:53:00 EST, Height, 87.3, [...] H ealth Status Informant Last pap smear 5/20/21 ASCUS with negative HPV Confirmed Active Nonischemic cardiomyopathy Confirmed Active Chronic systolic CHF (congestive heart failure) Confirmed Active Essential tremor Confirmed Active History of multiple falls Confirmed Active Family history of some sort of LEAD SEWAGE PLANT OPERATOR cancer in her mother Confirmed Active [...] Confirmed Active Dry mouth Confirmed Active Results Radiology Reports * Exam Date Time Procedure Performing Provider Status 02/26/23 6:[address] Cervical Spine W/O Contrast Ellis jamal Jaz; Auth (Verified) Notes: (CT Cervical Spine W/O Contrast) Reason For Exam: Neck trauma, dangerous injury mechanism;Other: RESULT: CT Cervical Spine W/O Contrast CT Head/Brain W/O Contrast, CT Cervical Spine W/O Contrast INDICATION: Reason: Trauma; Clinical Question(s): Other: TECHNIQUE: Noncontrast head CT using axial technique was reconstructed in axial and coronal planes.Noncontrast spiral CT through the cervical spine was formatted in 3 planes. Automatic tube modulation was used for the cervical spine and iterative dose reconstruction was used for both the head and cervical spine to optimize scan parameters and image quality. COMPARISON: None. FINDINGS: Die Operator View Findings, Lines and Tubes: None. BRAIN AND EXTRA-AXIAL SPACES: No parenchymal hemorrhage, midline shift, or mass effect. Alvarado-white matter differentiation is wellpreserved. No acute infarct. Ventricles, sulci, and basilar cisterns are normal. No white matter lesions. No subarachnoid hemorrhage. No subdural or epidural collection. CALVARIUM, SKULL BASE, AND SOFT TISSUES: No fractures or suspicious bony lesions. The paranasal sinuses and mastoid air cells are clear. Visualized orbits and globes are intact. The extracranial soft tissues are unremarkable. CERVICAL SPINE: No fracture. No acute osseous abnormalities. Normal alignment. No locked or perched facet. Moderate multilevel degenerative disc space narrowingand end plate irregularity. OTHER BONES: No acute abnormality. CERVICAL SOFT TISSUES AND LUNG APICES: Normal soft tissues. Visualized lung apices are clear. IMPRESSION: No acute abnormality of the head or cervical spine. WSN: [id number] Ordering Physician: Jeremie Mcclelland Dictated By: Rian Beth MD Dictated Date/Time: 02/26/23 6:58 pm Reviewed By: Rian Beth MD Signed By: Rian Beth MD Signed Date/Time: 02/26/23 6:58 pm Transcribed By: KRISTINE Transcribed Date/Time: 02/26/23 6:55 pm * Exam Date Time Procedure Performing Provider Status 02/26/23 6:[address] Head/Brain W/O Contrast Jaz Story; Auth (Verified) Notes: (CT Head/Brain W/O Contrast) Reason For Exam: Trauma RESULT: CT Head/Brain W/O Contrast CT Head/Brain W/O Contrast, CT Cervical Spine W/O Contrast INDICATION: Reason: Trauma; Clinical Question(s): Other: TECHNIQUE: Noncontrast head CT using axial technique was reconstructed in axial and coronal planes.Noncontrast spiral CT through the cervical spine was formatted in 3 planes. Automatic tube modulation was used for the cervical spine and iterative dose reconstruction was used for both the head and cervical spine to optimize scan parameters and image quality. COMPARISON: None. FINDINGS: Die Operator View Findings, Lines and Tubes: None. BRAIN AND EXTRA-AXIAL SPACES: No parenchymal hemorrhage, midline shift, or mass effect. Alvarado-white matter differentiation is wellpreserved. No acute infarct. Ventricles, sulci, and basilar cisterns are normal. No white matter lesions. No subarachnoid hemorrhage. No subdural or epidural collection. CALVARIUM, SKULL BASE, AND SOFT TISSUES: No fractures or suspicious bony lesions. The paranasal sinuses and mastoid air cells are clear. Visualized orbits and globes are intact. The extracranial soft tissues are unremarkable. CERVICAL SPINE: No fracture. No acute osseous abnormalities. Normal alignment. No locked or perched facet. Moderate multilevel degenerative disc space narrowingand end plate irregularity. OTHER BONES: No acute abnormality. CERVICAL SOFT TISSUES AND LUNG APICES: Normal soft tissues. Visualized lung apices are clear. IMPRESSION: No acute abnormality of the head or cervical spine. WSN: [id number] Ordering Physician: Jeremie Mcclelland Dictated By: Rian Beth MD Dictated Date/Time: 02/26/23 6:58 pm Reviewed By: Rian Beth MD Signed By: Rian Beth MD Signed Date/Time: 02/26/23 6:58 pm Transcribed By: KRISTINE Transcribed Date/Time: 02/26/23 6:55 pm Vital Signs Most recent to oldest [Reference Range]: 1 2 Height 160 cm (02/26/23 8:29 PM) 160 cm (02/26/23 6:49 PM) Weight 86 kg (02/26/23 8:29 PM) 86 kg (02/26/23 6:49 PM) Oxygen Saturation [94-100 %] 96 % (02/26/23 8:29 PM) 96 % (02/26/23 6:27 PM) Pulse Rate [55-90 bpm] 66 bpm (02/26/23 8:29 PM) 79 bpm (02/26/23 6:27 PM) Body Mass Index [18.5-24.99 kg/m2] 33.59 kg/m2 *>HHI* (02/26/23 8:29 PM) Blood Pressure [90-138/55-84 mm Hg] 121/ 57mm Hg (02/26/23 8:29 PM) 122/68mm Hg (02/26/23 6:27 PM) Respiratory Rate [16-30 br/min] 16 br/mi n (02/26/23 8:29 PM) 18 br/min (02/26/23 6:27 PM) Temperature [96.8-100.4 DegF] 97.6 DegF (02/26/23 6:27 PM) Mode of Delivery (Oxygen) Room air (02/26/23 8:29 PM) Room air (02/26/23 6:27 PM) Blood pressure sites Arm, left (02/26/23 8:29 PM) Arm, left (02/26/23 6:27 PM) Temperature Route Oral (02/26/23 6:27 PM) Dry Weight 86 kg (02/26/23 8:29 PM) 86 kg (02/26/23 6:49 PM) Social History Social History Type Response Smoking Status Former smoker; Other : Quit 2010; entered on: 03/02/16 Sex Note * Jeremie Mcclelland DO: PERFORM Event Display: Patient Education Leaflets Authored Date: [id number] Scalp Laceration, Stitches or [place] ?? [id number] Scalp Laceration, Stitches or Scooter A laceration is a cut through the skin. A scalp laceration may require stitches or scooter. It may also be closed with a hair positioning method, such as braiding. There are a lot of blood vessels inthe scalp. Because of this, a lot of bleeding is common with scalp cuts. You may need a tetanus shot if you're not up to date on your tetanus vaccine. Home care These guidelines will help you care for your laceration at home: ??? Follow your healthcare provider's specific directions on washing your hair and scalp. During the first 2 days you may carefully rinse your hair in the shower to remove blood and glass or dirt particles, or as advised by your provider. After 2 days you may shower and shampoo your hair normally. Don't scrub the repaired area or let water run on it for a long time. ??? Have someone help you clean your wound every day: o In the shower, wash the area with soap and water. Use a wet cotton swab to loosen and remove any blood or crust that forms. o After cleaning, keep the wound clean and dry. Talk with your healthcare provider about applying antibiotic ointment to the wound. Apply a fresh bandage. ??? Don't put your head underwater until the stitches or scooter have been removed. This means no swimming. ??? Your provider may prescribe an antibiotic cream or ointment to prevent infection. Don't stop taking this medicine until you've finished the medicine that was prescribed, or your provider tells you to stop. ??? Your prov ider may prescribe medicines for pain. If no pain medicines were prescribed, you can use [id number] pain medicines. Follow instructions for taking these medicines. Talk with your provider before using these medicines if you have chronic liver or kidney disease. Also talk with your provider ifyou've ever had a stomach ulcer or digestive tract bleeding. ??? To help prevent scarring, put sunscreen on the wound after it has healed. Use a sunscreen with SPF of 30 or higher. Reapply sunscreen often. ?? Follow-up care Follow up with your healthcare provider as advised. Check the wound daily for the signs of infection listed below. Stitches or scooter are often removed from the scalp in about 7 to 10 days. ?? Call 911 Call 911 if this occurs: ??? Bleeding can't be controlled by direct pressure ?? When to get medical advice Call your healthcare provider right away if any of the following occur: ??? Signs of infection, including increasing pain in the wound, redness, swelling, or pus coming from the wound ??? Fever of 100.4??F (38??C) or higher, or as advised by your provider ??? Chills ??? Stitches or scooter come apart or fall out before 7 days ??? Wound edges reopen ?? Last Reviewed Date: 2021 ?? [employer]. All rights reserved. This information is not intended as a substitute for professional medical care. Always follow your healthcare professional's instructions. ?? * Jeremie Mcclelland DO: PERFORM Event Display: Patient Education Leaflets Authored Date: [id number] Head Injury (Adult) ?? [id number] Head Injury (Adult) You have a head injury. It doesn't appear serious at this time. But symptoms of a more serious problem, such as a mild brain injury (concussion) or bruising or bleeding in the brain, may appear later. For this reason, you or someone caring for you will need to watch for the symptoms listed below. Once you???re home, also be sure to follow any care directions you???re given. Home care Watch??for the following symptoms Seek emergency medical care if you have any of these symptoms over the next hours to days:? Headache that gets worse or doesn't go away ??? Nausea or vomiting ??? Dizziness ??? Sensitivity to light or noise ??? Unusual sleepiness or grogginess ??? Trouble falling asleep ??? Personality changes ??? Vision changes ??? Memory loss ??? Confusion ??? Trouble walking or clumsiness ??? Loss of consciousness (even for a short time) ??? Inability to be awakened ??? Stiff neck ??? Weakness ornumbness in any part of the body ??? Seizures General care ??? If you were prescribed medicines for pain, use them as directed. Note: Don???t take other medicines for pain without talking to your healthcare provider first. ??? To help reduce swelling and pain, apply a cold source to the injured area for up to 20 minutes at a time. Do this as often??as directed. Use a cold pack or bag of ice wrapped in a thin towel. Never apply a cold source directly to the skin. ??? If you are on a blood thinner for a health condition and have a head injury, follow your healthcare provider's specific directions. You are at a higher risk for bleeding fromthe blood thinner, so your provider will talk to you about taking extra precautions. ??? If you have cuts or scrapes as a result of your head injury, care for them as directed. ??? For the next 24 hours??(or longer, if directed): o Don???t drink alcohol or use sedatives or other medicines that makeyou sleepy. o Don???t drive or operate machinery. o Don???t do anything strenuous, such as heavy lifting or straining. o Limit tasks that need concentration. This includes reading, using a smartphone or computer, watching TV, and playing video games. o Don???t return to sports or other activities that could result in another head injury until approved by your healthcare provider. ?? Follow-up care Follow up with your healthcare provider, or as directed.??If imaging tests were done, they will be reviewed by a healthcare provider. You will be told the results and any new findings that may affectyour care. ?? When to seek medical advice Call your healthcare provider right away if any of the following occur: ??? Pain doesn???t get better or gets worse ??? New or increased swelling or bruising ??? Increased redness,??warmth,??drainage, or bleeding from the injured area ??? Fluid drainage or bleeding from the nose or ears ??? Any depression or bony abnormality in the injured area ??? Persistent confusion or lethargy ??? Personalitychanges ??? Bruising behind the ears or bruising around the eyes ?? Last Reviewed Date: 2022 ?? 1236-2260 [employer]. All rights reserved. This information is not intended as a substitute for professional medical care. Always follow your healthcare professional's instructions. ?? Patient Care team information Care Team Personnel Name: Loretta Schwab RN Position: [place] RN Member Role: Primary Care Nurse Name: Jaun Eason DO Position: [facility] Physician - Primary Care Member Role: PCP Address: Address: [address] [place] [address] [address] [place] [address]- [place] Name: Elsa Tee RN Position: [facility] RN Member Role: Primary Care Nurse Name: Tesha Matias NP Position: Reference Physician Member Role: Primary Care Nurse Address: Address: [address] [place] [address]- [place] Name: Robert Cherry RN Position: [facility] RN Member Role: Primary Care Nurse Name: Elina Greene LPN Position: [facility] RN Member Role: Primary Care Nurse Name: Lamar Talbert RN Position: [facility] RN Supv Member Role: Primary Care Nurse Name: Rafael Ho RN Position: [facility] ED RN W/OE and Tasks Member Role: Primary Care Nurse Name: Kayley Baker RN Position: [facility] RN Member Role: Primary Care Nurse Name: Christine Mays RN Position: [facility] RN Member Role: Primary Care Nurse Name: Farzana Perez RN Position: [facility] RN Member Role: Primary Care Nurse Name: Jeremie Mcclelland DO Position: [facility] ED Medicine MD Member Role: Admitting Physician Address: Address: [address] [facility] [place] [address]- [place] Name: Domenica Garrido Position: [facility] ED [facility] Member Role: Patient Care Provider Name: Ev Guadalupe RN Position: [facility] ED RN W/OE and Tasks Member Role: Patient Care Provider Care Team Related Persons Name: RONAK RIOS Address: home [address] [place], [place] Name: KENA RIOS Address: home [address] [place], [place] Name: RANDALL RIOS Address: home [address] [place] [address]
--- OUTSIDE RECORDS SUMMARY | 2024-02-21 23:23 | XMS_ITS | Continuity of Care Document ---
Author Organization [facility] Address [address] [place] [address]- Care Team Providers Care Electrician Machine Shop Name Role Phone Ebenezerrubinamindi Jaun Primary Care Physician Encounter [facility] Date(s): 08/18/22 - 09/17/22 [facility] [address] [place] [address]- [place] Allergies, Adverse Reactions, Alerts Substance Reaction [...] tablet, 0 Refills, Maintenance, 07/29/22 9:15:00 EDT, [facility]/pharmacy #0315, Partial fill upon patient request if the prescription is for a schedule II opioid... Start Date: 07/29/22 Status: Ordered Entresto 49 mg-51 mg oral tablet 1 tablet, By Mouth, 2 times a day, # 28 tablet, 0 Refills, Maintenance, 07/15/22 8:37:00 EDT, [facility]/pharmacy #0315, 1 tablet By Mouth 2 [...] Refills, Maintenance, 06/07/22 7:57:00 EST, [facility], 160, cm, 05/06/22 10:53:00 EST, Height, 87.3, [...] 12/25/22 15:09:00 EDT, Route to Pharmacy Electronically, [facility]/pharmacy #0315, Partial fill upon patient request if the prescription is for a schedule II o... Start Date: 12/25/22 Stop Date: 06/23/23 Status: Ordered primidone 250 mg oral tablet 250 mg, 1, tablet, By Mouth, Daily at bedtime, for 30 days, # 30 tablet, Refills 5, Tot. Refills 5,Hard Stop 12/25/22 15:09:00 EDT, 06/28/22 15:09:00 EST, Route to Pharmacy Electronically, [facility]/pharmacy #0315, Partial fill upon patient request [...] Refills, Maintenance, 08/01/22 8:02:00 EDT, [facility], 160, cm, 05/06/22 10:53:00 EST, Height, 87.3, [...] capsule, 3 Refills, Maintenance, 04/10/20 13:57:00 EST, 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 cancer in her mother Confirmed Active GERD [...] Loretta Schwab RN Position: [facility] RN Member Role: Primary Care Nurse Name: Jaun Eason DO Position: [facility] Physician (General Medicine) Member Role: PCP Address: Address: [address] [place] [address] [address] [place], [place] [address] Name: Elsa Tee RN Position: [facility] RN Member Role: Primary Care Nurse Name: Tesha Matias NP Position: Reference Physician Member Role: Primary Care Nurse Address: Address: [address] [place] [address]- Name: Robert Cherry RN Position: S RN Member Role: Primary Care Nurse Name: Elina Greene LPN Position: S RN Member Role: Primary Care Nurse Name: Lamar Talbert RN Position: S RN Supv Member Role: Primary Care Nurse Name: Rafael Ho RN Position: [facility] ED RN W/OE and Tasks Member Role: Primary Care Nurse Name: Kayley Baker RN Position: S RN Member Role: Primary Care Nurse Name: Christine Mays RN Position: S RN Member Role: Primary Care Nurse Name: Farzana Perez RN Position: [facility] RN Member Role: Primary Care Nurse Care Team Related Persons Name: RONAK RIOS Address: [address] [place] [address] Name: KENA RIOS Address: [address] [place] [address] Name: BLANCA RANDALL Address: [address] [place] [address]
--- OUTSIDE RECORDS SUMMARY | 2024-02-21 23:23 | XMS_ITS | Continuity of Care Document ---
Author Organization [facility] Address [address] [place] [address]- Care Team Providers Care Director Of Surgery Name Role Phone Jaun Eason DO Primary Care Physician Encounter [facility] Date(s): 05/06/22 - 06/05/22 [facility] [address] [address]- Attending Physician: Jerod Denton Admitting Physician: Jerod [...] 03/16/22 8:34:00 EST, Route to Pharmacy Electronically, [facility], 160, cm, 01/13/22 11:06:00 EDT, Height, 87.9, kg, 10/04/21 1:04:00 EDT, Dry Weight Start Date: 03/16/22 Stop Date: 04/15/22 Status: Ordered Durable Medical Equipment See Instructions, Maintenance, 03/23/21 10:38:00 EST, Supply Start Date: 03/23/21 Status: Ordered Entresto 49 mg-51 mg oral tablet 1 tablet, By Mouth, 2 times a day, # 60 tablet, 5 Refills, Maintenance, 05/26/22 16:30:00 EST, Tablet, [id number], WE DO NOT FILL HER PRIMADONE, 1 [...] Maintenance,11/30/21 14:12:00 EDT, Route to Pharmacy Electronically, [facility]/pharmacy #0315, Partial fill upon [...] 11/30/21 14:13:00 EDT, Route to Pharmacy Electronically, [facility]/pharmacy #0315, Partial fill upon... Start Date: 11/30/21 Stop Date: 05/29/22 Status: Ordered Provera 5 mg oral tablet 1 tablet = 5 mg, By Mouth, Daily, # 90 tablet, 4 Refills, Maintenance, 06/08/21 9:18:00 EST, Tablet, [facility]/pharmacy #0315, Partial fill upon patient request if the prescription is for a schedule II opioid drug., 160, cm, 06/08/21 8:40:00 EST, Height, 85... Start Date: 06/08/21 Status: Ordered spironolactone 25 mg oral tablet 1, tablet, By Mouth, Daily, # 90 tablet, Refills 1, Maintenance, 01/02/22 8:06:00 EDT, Route to Pharmacy Electronically, [facility], 160, cm, 12/24/21 10:28:00 EDT, Height, 87.9, kg, 10/04/21 1:04:00 EDT, Dry Weight Start Date: 01/02/22 Status: Ordered torsemide 20 mg oral tablet 0.5 tablet = 10 mg, By Mouth, Daily, # 15 tablet, 3 Refills, Maintenance, 11/30/21 16:51:00 EDT, [facility]/pharmacy #0315, Partial fill upon patient request if the prescription is for a schedule II opioid drug., 160, cm, 11/30/21 14:40:00 EDT, Height, 87.9,... 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 cancer in her mother Confirmed Active GERD [...] Team Personnel Name: Loretta Schwab RN Position: [facility] RN Member Role: Primary Care Nurse Name: Jania Richmond RN Position: [facility] RN Member Role: Primary Care Nurse Name: Jaun Eason DO Position: [facility] Physician (General Medicine) Member Role: PCP Address: Address: [address] [place] [address]- Name: Elsa Tee RN Position: [facility] RN Member Role: Primary Care Nurse Name: Tesha Matias NP Position: Reference Physician Member Role: Primary Care Nurse Address: Address: [address] [place] [address]- Name: Robert Cherry RN Position: [facility] RN Member Role: Primary Care Nurse Name: Elina Greene LPN Position: [facility] RN Member Role: Primary Care Nurse Name: Lamar Talbert RN Position: [facility] RN Supv Member Role: Primary Care Nurse Name: Rafael Ho RN Position: [facility] ED RN W/OE and Tasks Member Role: Primary Care Nurse Name: Kayley Baker RN Position: S RN Member Role: Primary Care Nurse Name: Christine Mays RN Position: S RN Member Role: Primary Care Nurse Name: Lisajose danielFarzana vargas Position: S RN Member Role: Primary Care Nurse Care Team Related Persons Name: RONAK RIOS Address: [address] [place] [address] Name: KENA RIOS Address: [address] [place] [address] Name: RANDALL RIOS Address: [address] [place] [address]
--- OUTSIDE RECORDS SUMMARY | 2024-02-21 23:23 | XMS_ITS | Continuity of Care Document ---
Author Organization [facility] Address [address] [place] [address]- Care Team Providers Care Art Instructor Name Role Phone Trinity Eason DOno Primary Care Physician Encounter [facility] Date(s): 07/29/20 - 10/09/20 [facility] [address] [place] [address]- Attending Physician: Demetrice Chase MD Admitting Physician: Demetrice Chase MD Allergies, Adverse Reactions, Alerts Substance Reaction [...] Electronically, [facility]/pharmacy #[id number], this replaces bisoprololthat is unavailable please contact office once back... Start Date: 06/28/19 Stop Date: 08/21/20 Status: Ordered digoxin 0.125 mg oral tablet 125 mcg, 1, tablet, By Mouth, Daily, # 90 tablet, Refills 1, Tot. Refills 1, Maintenance, 07/20/20 9:15:00 EDT, Route to Pharmacy Electronically, [facility]/pharmacy #0315, 160, cm, 05/27/20 9:55:00 EST, Height, 82.9, kg, 05/06/20 12:35:00 EST, Dry Weight Start Date: 07/20/20 Stop Date: 01/16/21 Status: Ordered Entresto 49 mg-51 mg oral tablet 1 tablet, By Mouth, 2 times a day, # 60 tablet, 11 Refills, Maintenance, 07/01/20 11:14:00 EST, Tablet, [facility] [...] Active Family history of some sort of CERTIFIED HOME HEALTH AIDE cancer in her mother(Confirmed) Active GERD without [...]
--- OUTSIDE RECORDS SUMMARY | 2024-02-21 23:23 | XMS_ITS | Continuity of Care Document ---
Author Organization [facility] Address [address] [place] [address]- Care Team Providers Care Tire Inspector Name Role Phone Jaun Eason DO Primary Care Physician Encounter [facility] Date(s): 06/13/22 - 07/13/22 [facility] [address] [place] [address]- [place] Allergies, Adverse Reactions, Alerts Substance Reaction [...] 06/28/22 10:45:00 EST, Route to Pharmacy Electronically, [facility]/pharmacy #[id number], 160, cm, 05/06/22 10:53:00 EST, Height, 87.3, kg, 03/27/22 1:36:00 EST, Dry Weight Start Date: 06/28/22 Stop Date: 10/26/22 Status: Ordered Durable Medical Equipment See Instructions, Maintenance, 03/23/21 10:38:00 EST, Supply Start Date: 03/23/21 Status: Ordered Entresto 49 mg-51 mg oral tablet 1 tablet, By Mouth, 2 times a day, Pt needs this short term Rx to last until 07/02/22 when mail order Rx will arrive., # 60 tablet, 0 Refills, Maintenance, 06/13/22 11:17:00 EST, Tablet, [facility]/pharmacy #[id number], Pt needs this short term Rx to last until 3... Start Date: 06/13/22 Stop Date: 07/13/22 Status: Ordered Fish Oil By Mouth, 0 Refills, Maintenance, 09/07/21 14:53:00 EDT, Partial fill upon patient request if the prescription is for a schedule II opioid drug. Start Date: 09/07/21 Status: Ordered medroxyPROGESTERone 5 mg oral tablet 1 tablet, By Mouth, Daily, # 30 tablet, 5 Refills, Maintenance, 06/07/22 7:57:00 EST, [facility], 160, cm, 05/06/22 10:53:00 EST, Height, 87.3, [...] Maintenance,06/28/22 15:09:00 EST, Route to Pharmacy Electronically, [facility]/pharmacy #0315, Partial fill upon patient request if [...] 06/28/22 15:09:00 EST, Route to Pharmacy Electronically, [facility]/pharmacy #0315, Partial fill upon... Start Date: 06/28/22 Stop Date: 12/25/22 Status: Ordered spironolactone 25 mg oral tablet 1, tablet, By Mouth, Daily, # 90 tablet, Refills 1, Maintenance, 01/02/22 8:06:00 EDT, Route to Pharmacy Electronically, [facility], 160, cm, 12/24/21 10:28:00 EDT, Height, 87.9, kg, 10/04/21 1:04:00 EDT, Dry Weight Start Date: 01/02/22 Status: Ordered torsemide 20 mg oral tablet 0.5 tablet = 10 mg, By Mouth, Daily, # 15 tablet, 3 Refills, Maintenance, 11/30/21 16:51:00 EDT, [facility]/pharmacy #0315, Partial fill upon patient request if the prescription is for a schedule II opioid drug., 160, cm, 11/30/21 14:40:00 EDT, Height, 87.9,... Start Date: 11/30/21 Status: Ordered torsemide 20 mg oral tablet 0.5 tablet, By Mouth, Daily, # 15 tablet, 3 Refills, Maintenance, 03/23/22 8:36:00 EST, [facility], 160, cm, 01/13/22 11:06:00 EDT, Height, 87.9, [...] capsule, 3 Refills, Maintenance, 04/10/20 13:57:00 EST, [facility]/pharmacy #0315, 158, cm, 02/24/20 9:14:00 EST, Height, [...] Active Family history of some sort of QUALITY ASSURANCE TESTER cancer in her mother Confirmed Active GERD [...] Team Personnel Name: Loretta Schwab RN Position: [facility] RN Member Role: Primary Care Nurse Name: Jania Richmond RN Position: [facility] RN Member Role: Primary Care Nurse Name: Jaun Eason DO Position: [facility] Physician (General Medicine) Member Role: PCP Address: Address: [address] [place] [id number] Name: Elsa Tee RN Position: [facility] RN Member Role: Primary Care Nurse Name: Tesha Matias NP Position: Reference Physician Member Role: Primary Care Nurse Address: Address: [address] [place] [address]- Name: Robert Cherry RN Position: [facility] RN Member Role: Primary Care Nurse Name: Elina Greene LPN Position: [facility] RN Member Role: Primary Care Nurse Name: Lamar Talbert RN Position: [facility] RN Supshy Member Role: Primary Care Nurse Name: Rafael Ho RN Position: [facility] ED RN W/OE and Tasks Member Role: Primary Care Nurse Name: Kayley Baker RN Position: [facility] RN Member Role: Primary Care Nurse Name: Christine Mays RN Position: [facility] RN Member Role: Primary Care Nurse Name: Farzana Perez RN Position: [facility] RN Member Role: Primary Care Nurse Care Team Related Persons Name: RONAK RIOS Address: home [address] [place] [address] Name: KENA RIOS Address: [address] [place] [address] Name: RANDALL RIOS Address: home [address] [place] [address]
--- OUTSIDE RECORDS SUMMARY | 2024-02-21 23:23 | XMS_ITS | Continuity of Care Document ---
Author Organization [facility] Address [address] [place] [address]- Care Team Providers Care Ocean Lifeguard Name Role Phone Jaun Eason DO Primary Care Physician Encounter [facility] Date(s): 05/26/22 - 06/25/22 [facility] [address] [place] [address]- [place] Allergies, Adverse Reactions, Alerts Substance Reaction [...] 03/16/22 8:34:00 EST, Route to Pharmacy Electronically, [facility], 160, cm, 01/13/22 11:06:00 EDT, Height, 87.9, [...] 0 Refills, Maintenance, 06/13/22 11:17:00 EST, Tablet, [facility]/pharmacy #0315, Pt needs this short term Rx [...] Refills, Maintenance, 06/07/22 7:57:00 EST, [facility], 160, cm, 05/06/22 10:53:00 EST, Height, 87.3, [...] Maintenance,11/30/21 14:12:00 EDT, Route to Pharmacy Electronically, [facility]/pharmacy #0315, Partial fill upon [...] 11/30/21 14:13:00 EDT, Route to Pharmacy Electronically, [facility]/pharmacy #0315, Partial fill upon... Start Date: 11/30/21 Stop Date: 05/29/22 Status: Ordered spironolactone 25 mg oral tablet 1, tablet, By Mouth, Daily, # 90 tablet, Refills 1, Maintenance, 01/02/22 8:06:00 EDT, Route to [facility]acy Electronically, [facility], 160, cm, 12/24/21 10:28:00 EDT, Height, 87.9, kg, 10/04/21 1:04:00 EDT, Dry Weight Start Date: 01/02/22 Status: Ordered torsemide 20 mg oral tablet 0.5 tablet = 10 mg, By Mouth, Daily, # 15 tablet, 3 Refills, Maintenance, 11/30/21 16:51:00 EDT, [facility], Partial fill upon patient request if the prescription is for a schedule II opioid drug., 160, cm, 11/30/21 14:40:00 EDT, Height, 87.9,... Start Date: 11/30/21 Status: Ordered torsemide 20 mg oral tablet 0.5 tablet, By Mouth, Daily, # 15 tablet, 3 Refills, Maintenance, 03/23/22 8:36:00 EST, [facility], 160, cm, 01/13/22 11:06:00 EDT, Height, 87.9, [...] Active Family history of some sort of MACHINE SHOP REPAIR TECHNICIAN cancer in her mother Confirmed Active [...] Care Nurse Name: Jania Richmond RN Position: [facility] RN Member Role: Primary Care Nurse Name: Jaun Eason DO Position: [facility] Physician (General Medicine) Member Role: PCP Address: Address: [address] [place], [place] [id number] [place], [place] [address] Name: Elsa Tee RN Position: [facility] RN Member Role: Primary Care Nurse Name: Tesha Matias NP Position: Reference Physician Member Role: Primary Care Nurse Address: Address: [address] [place] [address]- Name: Robert Cherry RN Position: [facility] RN Member Role: Primary Care Nurse Name: Elina Greene LPN Position: [facility] RN Member Role: Primary Care Nurse Name: Lamar Talbert RN Position: [facility] RN Supv Member Role: Primary Care Nurse Name: Rafael Ho RN Position: [facility] ED RN W/OE and Tasks Member Role: Primary Care Nurse Name: Kayley Baker RN Position: S RN Member Role: Primary Care Nurse Name: Christine Mays RN Position: S RN Member Role: Primary Care Nurse Name: Farzana Perez Position: S RN Member Role: Primary Care Nurse Care Team Related Persons Name: RONAK RIOS Address: home [address] [place], [place] Name: KENA RIOS Address: home [address] [place], [place] Name: RANDALL RIOS Address: home [address] [place] [address] KRISTA ADAN [address]
--- OUTSIDE RECORDS SUMMARY | 2024-02-21 23:23 | XMS_ITS | Continuity of Care Document ---
Author Organization [facility] Address [address] [place] [address]- Care Team Providers Care Cotton Gin Yard Supervisor Name Role Phone EbenezereagleJaun piña DO Primary Care Physician Encounter [facility] Date(s): 01/20/21 - 02/19/21 [facility] [place] [address] [place] [address]- Attending Physician: AdmJerod weber Admitting Physician: AdmJerod weber Referring Physician: Admtr, Ar8 Allergies, Adverse Reactions, [...] 10/23/20 12:37:00 EDT, Route to Pharmacy Electronically, [facility] 0[facility], 160, cm, 09/10/20 15:03:00 EDT, Height, 73.4, kg, 09/10/20 9:18:00 EDT, Dry... Start Date: 10/23/20 Status: Ordered digoxin 0.125 mg oral tablet 1, tablet, By Mouth, Daily, # 90 tablet, Refills 1, Route to [facility] Electronically, [facility], 160, cm, 12/10/20 9:01:00 EDT, Height, 73.4, [...] Active Family history of some sort of POURER METAL cancer in her mother(Confirmed) Active GERD without [...]
--- OUTSIDE RECORDS SUMMARY | 2024-02-21 23:23 | XMS_ITS | Continuity of Care Document ---
Author Organization [facility] Address [address] [place] [address]- Care Team Providers Care Human Performance Consultant Name Role Phone Jenaro LEE Jaun Primary Care Physician Encounter [facility] Date(s): 09/18/20 - 10/18/20 [facility] [place] [address] [place] [address]- Attending Physician: Jerod Denton Admitting Physician: Jerod [...] 06/28/19 7:40:00 EST, Route to Pharmacy Electronically, [facility]/pharmacy #[id number], this replaces bisoprololthat is unavailable please contact office once back... Start Date: 06/28/19 Stop Date: 08/21/20 Status: Ordered digoxin 0.125 mg oral tablet 125 mcg, 1, tablet, By Mouth, Daily, # 90 tablet, Refills 1, Tot. Refills 1, Maintenance, 07/20/20 9:15:00 EDT, Route to Pharmacy Electronically, [facility]/pharmacy #0315, 160, cm, 05/27/20 9:55:00 EST, Height, 82.9, kg, 05/06/20 12:35:00 EST, Dry Weight Start Date: 07/20/20 Stop Date: 01/16/21 Status: Ordered Entresto 49 mg-51 mg oral tablet 1 tablet, By Mouth, 2 times a day, # 60 tablet, 11 Refills, Maintenance, 07/01/20 11:14:00 EST, Tablet, [facility]/pharmacy #0315, 1 tablet By Mouth 2 times [...] Active Family history of some sort of MOTORCYCLE SALES ASSOCIATE cancer in her mother(Confirmed) Active GERD [...]
--- OUTSIDE RECORDS SUMMARY | 2024-02-21 23:23 | XMS_ITS | Continuity of Care Document ---
Author Organization [facility] Address [address] [place] [address]- Care Team Providers Care Paper Colorer Name Role Phone Jaun Eason DO Primary Care Physician Encounter [facility] Date(s): 12/31/21 - 04/30/22 [facility] [address] [place] [address] Attending Physician: Diamond Kovacs Admitting Physician: Diamond Kovacs Referring Physician: Meenu Griffin MD Allergies, Adverse Reactions, Alerts Substance Reaction [...] 03/16/22 8:34:00 EST, Route to Pharmacy Electronically, [facility] 44219, 160, cm, 01/13/22 11:06:00 EDT, Height, 87.9, kg, 10/04/21 1:04:00 EDT, Dry Weight Start Date: 03/16/22 Stop Date: 04/15/22 Status: Ordered digoxin 0.125 mg oral tablet 125 mcg, 1, tablet, By Mouth, Daily, # 30 tablet, Refills 11, Tot. Refills 11, Maintenance, 02/14/22 7:26:00 EDT, [facility] Partial fill upon patient request if the prescription is for a schedule II opioid d... Start Date: 02/14/22 Status: Ordered Durable Medical Equipment See Instructions, Maintenance, 03/23/21 10:38:00 EST, Supply Start Date: 03/23/21 Status: Ordered Entresto 49 mg-51 mg oral tablet 1 tablet, By Mouth, 2 times a day, # 60 tablet, 5 Refills, Maintenance, 11/11/21 7:16:00 EDT, Tablet, [facility], this is an increased dose, 1 [...] Maintenance,11/30/21 14:12:00 EDT, Route to Pharmacy Electronically, [facility]/pharmacy #0315, Partial fill upon patient request [...] 11/30/21 14:13:00 EDT, Route to Pharmacy Electronically, [facility]/pharmacy #0315, Partial fill upon... Start Date: [...] EDT, Route to [facility]acy Electronically, [facility], 160, cm, 12/24/21 10:28:00 EDT, Height, 87.9, kg, 10/04/21 1:04:00 EDT, Dry Weight Start Date: 01/02/22 Status: Ordered torsemide 20 mg oral tablet 0.5 tablet = 10 mg, By Mouth, Daily, # 15 tablet, 3 Refills, Maintenance, 11/30/21 16:51:00 EDT, [facility]/pharmacy #0315, Partial fill upon patient request if the prescription is for a schedule II opioid drug., 160, cm, 11/30/21 14:40:00 EDT, Height, 87.9,... Start Date: 11/30/21 Status: Ordered torsemide 20 mg oral tablet 0.5 tablet, By Mouth, Daily, # 15 tablet, 3 Refills, Maintenance, 03/23/22 8:36:00 EST, [facility], 160, cm, 01/13/22 11:06:00 EDT, Height, 87.9, [...] Active Family history of some sort of BIOFUELS PROCESSING TECHNICIAN cancer in her mother Confirmed Active [...] Care Nurse Name: Loretta Schwab RN Position: [facility] RN Member Role: Primary Care Nurse Name: Jania Richmond RN Position: S RN Member Role: Primary Care Nurse Name: Jaun Eason DO Position: [facility] Physician (General Medicine) Member Role: PCP Address: Address: [address] [place], [place] [phone] [place] [address]- Name: Junior Pearl RN Position: S RN Member Role: Primary Care Nurse Name: Elsa Tee RN Position: S RN Member Role: Primary Care Nurse Name: Tesha Matias NP Position: Reference Physician Member Role: Primary Care Nurse Address: Address: [address] [place] [address]- [place] Name: Robert Cherry RN Position: S RN Member Role: Primary Care Nurse Name: Elina Greene LPN Position: S RN Member Role: Primary Care Nurse Name: Lamar Talbert RN Position: S RN Supv Member Role: Primary Care Nurse Name: Rafael Ho RN Position: [facility] ED RN W/OE and Tasks Member Role: Primary Care Nurse Name: Kayley Baker RN Position: S RN Member Role: Primary Care Nurse Name: Christine Mays RN Position: S RN Member Role: Primary Care Nurse Name: Farzana Perez Position: S RN Member Role: Primary Care Nurse Care Team Related Persons Name: RONAK RIOS Address: home [address] [place] [address] Name: KENA RIOS Address: [address] [place] [address] Name: RANDALL RIOS Address: [address] [place] [address]
--- OUTSIDE RECORDS SUMMARY | 2024-02-21 23:23 | XMS_ITS | Continuity of Care Document ---
Author Organization [facility] Address [address] [place] [address]- Care Team Providers Care African Studies Professor Name Role Phone Ebenezereaglewang Jaun Primary Care Physician Encounter [facility] Date(s): 06/28/21 - 07/28/21 [facility] [address] [place], [place] [phone]- Attending Physician: Jerod Denton Admitting Physician: AdmtrJerod [...] 10/23/20 12:37:00 EDT, Route to Pharmacy Electronically, [facility], 160, cm, 09/10/20 15:03:00 EDT, Height, 73.4, kg, 09/10/20 9:18:00 EDT, Dry... Start Date: 10/23/20 Status: Ordered digoxin 0.125 mg oral tablet 1, tablet, By Mouth, Daily, for 30 days, # 30 tablet, Refills 6, Tot. Refills 6, Physician Stop 02/07/22 10:21:00 EDT, 07/12/21 10:21:00 EDT, Route to Pharmacy Electronically, [facility]/pharmacy #0315, 160, cm, 06/28/21 10:44:00 EST, [...] 04/02/21 14:34:00 EST, [facility] Partial fill upon patient request if the prescription is for a schedule II opioid dr... Start Date: 04/02/21 Stop Date: 06/01/21 Status: Ordered Entresto 49 mg-51 mg oral tablet 1 tablet, By Mouth, 2 times a day, # 60 tablet, 5 Refills, Maintenance, 07/05/21 10:48:00 EDT, Tablet, [facility]/pharmacy #0315, 1 tablet By Mouth 2 [...] Replace Required Details, Route to Pharmacy Electronically, [facility]/pharmacy #0315, Partial fill upon... Start Date: [...] Active Family history of some sort of MANAGER INTERNET RETAILS SALES cancer in her mother(Confirmed) Active GERD without [...]
--- OUTSIDE RECORDS SUMMARY | 2024-02-21 23:23 | XMS_ITS | Continuity of Care Document ---
Author Organization [facility] Address [address] [place] [address]- Care Team Providers Care High School Librarian Name Role Phone EbenezerJaun victor DO Primary Care Physician Encounter [facility] Date(s): 03/01/21 - 03/31/21 [facility] [address] [place] [address]- [place] Allergies, Adverse Reactions, Alerts Substance Reaction [...] 10/23/20 12:37:00 EDT, Route to Pharmacy Electronically, [facility], 160, cm, 09/10/20 15:03:00 EDT, Height, 73.4, kg, 09/10/20 9:18:00 EDT, Dry... Start Date: 10/23/20 Status: Ordered digoxin 0.125 mg oral tablet 1, tablet, By Mouth, Daily, # 90 tablet, Refills 1, Route to Pharmacy Electronically, [facility] 69239, 160, cm, 12/10/20 9:01:00 EDT, Height, 73.4, [...] Active Family history of some sort of NUTRITION SERVICES ASSOCIATE cancer in her mother(Confirmed) Active GERD [...]
--- OUTSIDE RECORDS SUMMARY | 2024-02-21 23:23 | XMS_ITS | Continuity of Care Document ---
Author Organization [facility] Address [address] [place] [address]- Care Team Providers Care Senior Sales Operations Analyst Name Role Phone Jaun Eason DO Primary Care Physician Encounter [facility] Date(s): 01/04/21 - 02/03/21 [facility] [address] [place] [address]- [place] Allergies, Adverse Reactions, Alerts Substance Reaction [...] 10/23/20 12:37:00 EDT, Route to Pharmacy Electronically, [facility] 255[facility], 160, cm, 09/10/20 15:03:00 EDT, Height, 73.4, kg, 09/10/20 9:18:00 EDT, Dry... Start Date: 10/23/20 Status: Ordered digoxin 0.125 mg oral tablet 1, tablet, By Mouth, Daily, # 90 tablet, Refills 1, Route to [facility], [facility], 160, cm, 12/10/20 9:01:00 EDT, Height, 73.4, kg, 09/10/20 9:18:00 EDT, Dry Weight Start Date: 12/13/20 Status: Ordered Entresto 49 mg-51 mg oral tablet 1 tablet, By Mouth, 2 times a day, # 60 tablet, 11 Refills, Maintenance, 07/01/20 11:14:00 EST, Tablet, [facility]/pharmacy #0315, 1 tablet [...] Active Family history of some sort of TRANSCRIBING OPERATORS SUPERVISOR cancer in her mother(Confirmed) Active GERD without [...]
--- OUTSIDE RECORDS SUMMARY | 2024-02-21 23:23 | XMS_ITS | Continuity of Care Document ---
Author Organization [facility] Address [address] [facility], [address] [place] [address]- Care Team Providers Care Egg Separator Name Role Phone Jaun Eason DO Primary Care Physician Encounter [facility] Date(s): 09/07/20 - 10/07/20 [facility] [facility] [address] [facility], [address] [place], [place] [address] Allergies, Adverse Reactions, Alerts Substance Reaction Severity [...] Route to Pharmacy Electronically, [facility]/pharmacy #3492, this replaces bisoprololthat is unavailable please contact office once back... Start Date: 06/28/19 Stop Date: 08/21/20 Status: Ordered digoxin 0.125 mg oral tablet 125 mcg, 1, tablet, By Mouth, Daily, # 90 tablet, Refills 1, Tot. Refills 1, Maintenance, 07/20/20 9:15:00 EDT, Route to Pharmacy Electronically, [facility]/pharmacy #0315, 160, cm, 05/27/20 9:55:00 EST, Height, [...] Active Family history of some sort of RESIDENT INTERN cancer in her mother(Confirmed) Active GERD without [...]
--- OUTSIDE RECORDS SUMMARY | 2024-02-21 23:23 | XMS_ITS | Continuity of Care Document ---
Author Organization [facility] Address Unknown Care Team Providers Care Sales Development Specialist Name Role Phone Jaun Eason DO Primary Care Physician Encounter [facility] Date(s): 03/15/21 - 04/14/21 [facility] Allergies, Adverse Reactions, Alerts Substance Reaction [...] 10/23/20 12:37:00 EDT, Route to Pharmacy Electronically, [facility] 31237, 160, cm, 09/10/20 15:03:00 EDT, Height, 73.4, kg, 09/10/20 9:18:00 EDT, Dry... Start Date: 10/23/20 Status: Ordered digoxin 0.125 mg oral tablet 1, tablet, By Mouth, Daily, # 90 tablet, Refills 1, Route to Pharmacy Electronically, [facility] 90298, 160, cm, 12/10/20 9:01:00 EDT, Height, 73.4, [...] 04/02/21 14:34:00 EST, [facility] fill upon patient request if the prescription is for a schedule II opioid . Start Date: 04/02/21 Stop Date: 06/01/21 Status: Ordered Entresto 49 mg-51 mg oral tablet 1 tablet, By Mouth, 2 times a day, # 60 tablet, 11 Refills, Maintenance, 07/01/20 11:14:00 EST, [facility], 1 tablet By Mouth 2 times [...] Active Family history of some sort of SOLVENT PROCESS EXTRACTOR OPERATOR cancer in her mother(Confirmed) Active GERD [...]
--- OUTSIDE RECORDS SUMMARY | 2024-02-21 23:23 | XMS_ITS | Continuity of Care Document ---
Author Organization [facility] Address Unknown Care Team Providers Care Hang Gliding Instructor Name Role Phone Jaun Eason DO Primary Care Physician Encounter [facility] Date(s): 01/28/21 - 02/27/21 [facility] Attending Physician: Jerod Denton Admitting Physician: [...] 10/23/20 12:37:00 EDT, Route to Pharmacy Electronically, [facility] 6[facility]24, 160, cm, 09/10/20 15:03:00 EDT, Height, 73.4, kg, 09/10/20 9:18:00 EDT, Dry... Start Date: 10/23/20 Status: Ordered digoxin 0.125 mg oral tablet 1, tablet, By Mouth, Daily, # 90 tablet, Refills 1, Route to Pharmacy Electronically, [facility], 160, cm, 12/10/20 9:01:00 EDT, Height, 73.4, kg, 09/10/20 9:18:00 EDT, Dry Weight Start Date: 12/13/20 Status: Ordered Entresto 49 mg-51 mg oral tablet 1 tablet, By Mouth, 2 times a day, # 60 tablet, 11 Refills, Maintenance, 07/01/20 11:14:00 EST, Tablet, [facility]/pharmacy #0315, 1 tablet By Mouth 2 [...] Active Family history of some sort of SHAFT SINKER cancer in her mother(Confirmed) Active GERD without [...]
--- OUTSIDE RECORDS SUMMARY | 2024-02-21 23:23 | XMS_ITS | Continuity of Care Document ---
Author Organization [facility] Address [address], [address]t [place] [address]- Care Team Providers Care Concrete Smoother Name Role Phone Jaun Eason DO Primary Care Physician [place] [facility] [place](s): 05/04/22 - 05/11/22 [facility] [address], 4th [place] [address]- Attending Physician: Makeda HENAO, Twyla Jalloh Allergies, Adverse Reactions, Alerts Substance Reaction Severity [...] 03/16/22 8:34:00 EST, Route to Pharmacy Electronically, [email or web address], 160, cm, 01/13/22 11:06:00 EDT, Height, 87.9, kg, 10/04/21 1:04:00 EDT, Dry Weight Start Date: 03/16/22 Stop Date: 04/15/22 Status: Ordered Durable Medical Equipment See Instructions, Maintenance, 03/23/21 10:38:00 EST, Supply Start Date: 03/23/21 Status: Ordered Entresto 49 mg-51 mg oral tablet 1 tablet, By Mouth, 2 times a day, # 60 tablet, 5 Refills, Maintenance, 11/11/21 7:16:00 EDT, Tablet, [facility]/pharmacy #0315, this is an increased dose, 1 [...] Maintenance,11/30/21 14:12:00 EDT, Route to Pharmacy Electronically, [facility]/pharmacy #[id number], Partial fill upon patient request [...] 4 Refills, Maintenance, 06/08/21 9:18:00 EST, Tablet, [facility]/pharmacy #0315, Partial fill upon patient request if the prescription is for a schedule II opioid drug., 160, cm, 06/08/21 8:40:00 EST, Height, 85... Start Date: 06/08/21 Status: Ordered spironolactone 25 mg oral tablet 1, tablet, By Mouth, Daily, # 90 tablet, Refills 1, Maintenance, 01/02/22 8:06:00 EDT, Route to Pharmacy Electronically, [email or web address], 160, cm, 12/24/21 10:28:00 EDT, Height, 87.9, [...] Refills, Maintenance, 03/23/22 8:36:00 EST, [facility], 160, cm, 01/13/22 11:06:00 EDT, Height, 87.9, [...] Active Family history of some sort of BATTALION CHIEF cancer in her mother Confirmed Active GERD [...] oldest [Reference Range]: 1 Height 160 cm (05/04/22 11:17 AM) Weight 85.00 kg (05/04/22 11:17 AM) Body Mass Index [18.5-24.99 kg/m2] 33.2 kg/m2 *>HHI* (05/04/22 11:17 AM) Blood Pressure [90-138/55-84 mm Hg] 100/ 60mm Hg (05/04/22 11:17 AM) Blood pressure sites Arm, left (05/04/22 11:17 AM) Weight Obtained Via Standing scale (05/04/22 11:17 AM) Social History Social History Type Response Smoking Status Former smoker; Other : Quit 2010; entered on: 03/02/16 Sex Note * Amy Cope: PERFORM, SIGN, VERIFY Event Display: Patient Education/Instruction Authored Date: [id number] [facility] *[facility] UI ENGINEER Clinical Summary Name KENA RIOS Age 56 Years 1965 PCP Ja[facility] E[id number] Visit Date 05/04/2022 10:58:00 Additional Instructions: Scheduled Appointments?? Future Appointments ?*[facility] ?[address] ?[facility] ?[place],??[place],??[address] ?Phone:??--?Fax:??-- ?Appt. Date:??05/06/2022?10:30 AM ?Scheduled Provider:??Diamond Kovacs Follow-Up Instructions ?? Diagnosis Estrogen excess; Encounter for gynecological examination (general) (routine) without abnormal findings Medications: Please continue your medications until treatment is completed or stopped by your provider. Discuss any questions related to medications with your provider. Medications to Continue with No Changes These medications were not printed or sent to your pharmacy Aspirin (aspirin 81 mg oral tablet, chewable) 81 Milligram Oral Daily. Refills: 0. Next Dose: Carvedilol (carvedilol 6.25 mg oral tablet) 1 tab(s) Oral twice a day for 30 Days. Refills: 3. Next Dose: Cholecalciferol (Vitamin D3 2000 intl units oral capsule) 1 capsule Oral Daily for 90 Days. Refills: 3. Next Dose: Durable Medical Equipment See Instructions. Next Dose: MedroxyPROGESTERone (Provera 5 mg oral tablet) 1 tab(s) Oral Daily. Refills: 4. Next Dose: Ki[place]-3 Polyunsaturated Fatty Acids (Fish Oil) Oral. Next Dose: Primidone 300 Milligram Oral 3 times a day. Next Dose: Primidone (primidone 250 mg oral tablet) 1 tab(s) Oral Daily at Bedtime for 30 Days. Refills: 5. Next Dose: Primidone (primidone 50 mg oral tablet) 1 tab(s) Oral Daily at Bedtime for 30 Days. take with primidone 250 mg, for total dos eof 300 mg hs. Refills: 5. Next Dose: sacubitril-valsartan (Entresto 49 mg-51 mg oral tablet) 1 tab(s) Oral twice a day. Refills: 5. Next Dose: Spironolactone (spironolactone 25 mg oral tablet) 1 tab(s) Oral Daily. Refills: 1. Next Dose: torsemide (torsemide 20 mg oral tablet) 0.5 tab(s) Oral Daily. Refills: 3. Next Dose: torsemide (torsemide 20 mg oral tablet) 0.5 tab(s) Oral Daily. Refills: 3. Next Dose: Venlafaxine (venlafaxine 150 mg oral capsule, extended release) TAKE 1 CAPSULE BY MOUTH EVERY DAY WITH FOOD FOR 30 DAYS. Next Dose: Allergy Info:?? benzonatate Medications Given This Visit Future Orders ?No future orders Vital Signs Height 160 cm Weight 85.00 kg BMI 33.2 kg/m2 Blood Pressure 100 mm Hg/60 mm Hg Temperature Pulse Rate Respiratory Rate 02 Sat Mode of Delivery / You can now view a summary of your hospital visit from the comfort of your home through a free online portal called [employer]. [employer] is a website that allows you to securely view your medical information including discharge summary, medications and follow-up visits. ??You can alsosend a secure electronic message to your doctor???s office to request appointments, renew medications or just ask a question. You can enroll at [email or web address] or register during your next office visit. Disclaimer:?? The information provided is of a general nature and is intended to be used in conjunction with the recommendations and advice of your health care practitioner. ??Every effort has been made to ensure that the information provided is accurate and complete at the time it is provided to you however, as your needs change, or, as new ??information becomes available, different or additional instructions may be required. If you have questions, please consult with your primary care provider or pharmacist, as appropriate. ??This information is not intended to serve as substitution for assessment and evaluation by a qualified health care provider. If you do not have a primary care provider, you may find a [facility] provider by calling [facility] [employer] at [phone]. For information about the plan of care including goals and instructions for your diagnosis, please see the patient education orders section of this document. Patient Education Materials?? The content of this educational material or handout may have been modified, supplemented, or adapted from its original content and format to support your individualized medical care. Please follow instructions discussed with your provider during this visit as well as any education documents you were given today. Patient Care team information Care Team Personnel Name: Jania Cadet Position: S RN Member Role: Primary Care Nurse Name: Loretta Schwab RN Position: S RN Member Role: Primary Care Nurse Name: Jania Richmond RN Position: S RN Member Role: Primary Care Nurse Name: Jaun Eason DO Position: S Physician (General Medicine) Member Role: PCP Address: Address: [address] [place], [place] [id number] [place], [place] [address] Name: Dae AGUAYO, Junior Position: S RN Member Role: Primary Care Nurse Name: Elsa Tee RN Position: S RN Member Role: Primary Care Nurse Name: Tesha Matias NP Position: Reference Physician Member Role: Primary Care Nurse Address: Address: [address] [place] [address]- Name: Robert Cherry RN Position: [facility] RN Member Role: Primary Care Nurse Name: Elina Greene LPN Position: [facility] RN Member Role: Primary Care Nurse Name: Lamar Talbert RN Position: [facility] RN Supv Member Role: Primary Care Nurse Name: Rafael Ho RN Position: [facility] ED RN W/OE and Tasks Member Role: Primary Care Nurse Name: Kayley Baker RN Position: [facility] RN Member Role: Primary Care Nurse Name: Christine Mays RN Position: [facility] RN Member Role: Primary Care Nurse Name: Farzana Perez Position: [facility] RN Member Role: Primary Care Nurse Care Team Related Persons Name: RONAK RIOS Address: home [address] [place] [address] Name: KENA RIOS Address: [address] [place] [address] Name: RANDALL RIOS Address: [address] [place] [address]
--- OUTSIDE RECORDS SUMMARY | 2024-02-21 23:23 | XMS_ITS | Continuity of Care Document ---
Author Organization [facility] Address Unknown Care Team Providers Care Pipe Organ Installer Name Role Phone Jaun Eason DO Primary Care Physician Encounter [facility] [place] Date(s): 03/24/21 - 07/11/21 [facility] Attending Physician: Bev Eason MD Admitting Physician: Bev Eason MD Allergies, Adverse Reactions, Alerts Substance Reaction [...] 10/23/20 12:37:00 EDT, Route to Pharmacy Electronically, [facility], 160, cm, 09/10/20 15:03:00 EDT, Height, 73.4, kg, 09/10/20 9:18:00 EDT, Dry... Start Date: 10/23/20 Status: Ordered digoxin 0.125 mg oral tablet 1, tablet, By Mouth, Daily, # 90 tablet, Refills 1, Route to Pharmacy Electronically, [facility] STORE 38212, 160, cm, 12/10/20 9:01:00 EDT, Height, 73.4, [...] 04/02/21 14:34:00 EST, Route to Pharmacy Electronically, [facility]/pharmacy #[id number], Partial fill upon patient request if the prescription is for a schedule II opioid dr... Start Date: 04/02/21 Stop Date: 06/01/21 Status: Ordered Entresto 49 mg-51 mg oral tablet 1 tablet, By Mouth, 2 times a day, # 60 tablet, 5 Refills, Maintenance, 07/05/21 10:48:00 EDT, Tablet, [facility]/pharmacy #0315, 1 tablet By [...] Replace Required Details, Route to Pharmacy Electronically, [facility]/pharmacy #[id number], Partial fill upon... Start Date: 06/03/21 Status: Ordered Provera 5 mg oral tablet 1 tablet = 5 mg, By Mouth, Daily, # 90 tablet, 4 Refills, Maintenance, 06/08/21 9:18:00 EST, Tablet, [facility]/pharmacy #0315, Partial fill upon [...] Active Family history of some sort of ACCOUNTANT COST cancer in her mother(Confirmed) Active GERD without [...]
--- OUTSIDE RECORDS SUMMARY | 2024-02-21 23:23 | XMS_ITS | Continuity of Care Document ---
Author Organization [facility] Address [address] [place] [address]- Care Team Providers Care Deli Clerk Name Role Phone Arlin HENAO ([facility]), Rinku Bonner Primary Care Ph ysician Encounter [facility] Date(s): 05/06/20 - 06/05/20 [facility] [address] [place] [address]- Allergies, Adverse Reactions, Alerts Substance Reaction Severity [...] 06/28/19 7:40:00 EST, Route to Pharmacy Electronically, [facility]/pharmacy #[id number], this replaces bisoprololthat is unavailable please contact office once back... Start Date: 06/28/19 Stop Date: 08/21/20 Status: Ordered digoxin 0.125 mg oral tablet 125 mcg, 1, tablet, By Mouth, Daily, # 90 tablet, Refills 2, Tot. Refills 2, Maintenance, 07/15/19 8:57:00 EDT, Route to Pharmacy Electronically, [facility]/pharmacy #[id number], 160, cm, 06/28/19 7:51:00 EST, Height, 87.4, kg, 02/11/19 2:25:00 EDT, Dry Weight Start Date: 07/15/19 Stop Date: 04/10/20 Status: Ordered Entresto 49 mg-51 mg oral tablet 1 tablet, By Mouth, 2 times a day, # 60 tablet, 11 Refills, Maintenance, 05/17/19 16:00:00 EST, Tablet, [facility]/pharmacy #0315, 1 tablet By Mouth [...]
--- OUTSIDE RECORDS SUMMARY | 2024-02-21 23:23 | XMS_ITS | Continuity of Care Document ---
Author Organization [facility] Address [address], [address], [address] [place] [address]- Care Team Providers Care Senior Paralegal Name Role Phone Jaun Eason DO Primary Care Physician Encounter [facility] Date(s): 05/06/22 - 06/05/22 [facility] [address], [address], [address] [place] [id number] Allergies, Adverse Reactions, Alerts Substance Reaction Severity [...] 03/16/22 8:34:00 EST, Route to Pharmacy Electronically, [facility], 160, cm, 01/13/22 11:06:00 EDT, Height, 87.9, kg, 10/04/21 1:04:00 EDT, Dry Weight Start Date: 03/16/22 Stop Date: 04/15/22 Status: Ordered Durable Medical Equipment See Instructions, Maintenance, 03/23/21 10:38:00 EST, Supply Start Date: 03/23/21 Status: Ordered Entresto 49 mg-51 mg oral tablet 1 tablet, By Mouth, 2 times a day, # 60 tablet, 5 Refills, Maintenance, 05/26/22 16:30:00 EST, Tablet, [facility] #[id number], WE DO NOT FILL HER PRIMADONE, 1 [...] Maintenance,11/30/21 14:12:00 EDT, Route to Pharmacy Electronically, [facility]/pharmacy #[id number], Partial fill upon patient request if [...] 11/30/21 14:13:00 EDT, Route to Pharmacy Electronically, [facility]/pharmacy #[id number], Partial fill upon... Start Date: 11/30/21 Stop Date: 05/29/22 Status: Ordered Provera 5 mg oral tablet 1 tablet = 5 mg, By Mouth, Daily, # 90 tablet, 4 Refills, Maintenance, 06/08/21 9:18:00 EST, Tablet, [facility]/pharmacy #0315, Partial fill upon patient request if the prescription is for a schedule II opioid drug., 160, cm, 06/08/21 8:40:00 EST, Height, 85... Start Date: 06/08/21 Status: Ordered spironolactone 25 mg oral tablet 1, tablet, By Mouth, Daily, # 90 tablet, Refills 1, Maintenance, 01/02/22 8:06:00 EDT, Route to Pharmacy Electronically, [facility], 160, cm, 12/24/21 10:28:00 EDT, Height, 87.9, kg, 10/04/21 1:04:00 EDT, Dry Weight Start Date: 01/02/22 Status: Ordered torsemide 20 mg oral tablet 0.5 tablet = 10 mg, By Mouth, Daily, # 15 tablet, 3 Refills, Maintenance, 11/30/21 16:51:00 EDT, [facility]/pharmacy #[id number], Partial fill upon patient request if the prescription is for a schedule II opioid drug., 160, cm, 11/30/21 14:40:00 EDT, Height, 87.9,... Start Date: 11/30/21 Status: Ordered torsemide 20 mg oral tablet 0.5 tablet, By Mouth, Daily, # 15 tablet, 3 Refills, Maintenance, 03/23/22 8:36:00 EST, [facility], 160, cm, 01/13/22 11:06:00 EDT, Height, 87.9, [...] Active Family history of some sort of HOLTER SCANNING TECHNICIAN cancer in her mother Confirmed Active [...] Care Nurse Name: Jania Richmond RN Position: [facility] RN Member Role: Primary Care Nurse Name: Jaun Eason DO Position: [facility] Physician (General Medicine) Member Role: PCP Address: Address: [address] [place], [place] [id number] [place] [address]- Name: Elsa Tee RN Position: [facility] RN Member Role: Primary Care Nurse Name: Tesha Matias NP Position: Reference Physician Member Role: Primary Care Nurse Address: Address: [address] [place] [address]- Name: Robert Cherry RN Position: [facility] RN Member Role: Primary Care Nurse Name: Elina Greene LPN Position: [facility] RN Member Role: Primary Care Nurse Name: Lamar Talbert RN Position: [facility] RN Supv Member Role: Primary Care Nurse [...] Persons Name: RONAK RIOS Address: home [address] [place] [address] Name: KENA RIOS Address: [address] [place] [address] Name: RANDALL RIOS Address: [address] [place] [address]
--- OUTSIDE RECORDS SUMMARY | 2024-02-21 23:23 | XMS_ITS | Continuity of Care Document ---
Author Organization [facility] Address [address] [facility], [address] Floor, [address] [place] [address]- Care Team Providers Care Resident Care Manager Name Role Phone Jaun Eason DO Primary Care Physician [place] [facility] 12/30/21 [facility] [address], [address], [address] [place] [address]- Attending Physician: Jerod Denton Admitting Physician: AdmtrJerod [...] 13:29:00 EDT, Route to Pharmacy Electronically, [facility]/pharmacy #[id number], 160, cm, 07/11/22 14:10:00 EDT, Height, 87.9, kg, 10/04/21 1:04:00 EDT, Dry... Start Date: 11/08/21 Stop Date: 03/08/22 Status: Ordered digoxin 0.125 mg oral tablet 1, tablet, By Mouth, Daily, for 30 days, # 30 tablet, Refills 6, Tot. Refills 6, Physician Stop 02/07/22 10:21:00 EDT, 07/12/21 10:21:00 EDT, Route to Pharmacy Electronically, [facility]/pharmacy #0315, 160, cm, 06/28/21 10:44:00 EST, Height, 85.9, kg, 03/30... Start Date: 07/12/21 Stop Date: 02/07/22 Status: Ordered Durable Medical Equipment See Instructions, Maintenance, 03/23/21 10:38:00 EST, Supply Start Date: 03/23/21 Status: Ordered Entresto 49 mg-51 mg oral tablet 1 tablet, By Mouth, 2 times a day, # 60 tablet, 5 Refills, Maintenance, 11/11/21 7:16:00 EDT, Tablet, [facility]/pharmacy #0315, this is an increased dose, 1 [...] Maintenance,11/30/21 14:12:00 EDT, Route to Pharmacy Electronically, [facility]/pharmacy #0315, Partial fill upon patient request if [...] 11/30/21 14:13:00 EDT, Route to Pharmacy Electronically, [facility]/pharmacy #0315, Partial fill upon... Start Date: 11/30/21 [...] 11/30/21 16:51:00 EDT, Route to Pharmacy Electronically, [facility]/pharmacy #0315, Partial fill upon patient request if [...] Date: 04/05/21 Status: Ordered Problem List Condition Effective Dates Status Health Status Inform ant Last pap smear 09/10/20 ASCUS with negative HPV(Confirmed) Active Chronic systolic CHF (conges tive heart failure)(Confirmed) Active Essential tremor(Confirmed) Active History of multiple falls(Confirmed) Active Family history of some sort of TAPE EDITOR cancer in her mother(Confirmed) Active GERD without [...] : Quit 2010; entered on: 03/02/16 Sex Care Team Personnel Name: Jaun Eason DO Address: [address] [place] [address] [address] [place] [address]-
--- OUTSIDE RECORDS SUMMARY | 2024-02-21 23:23 | XMS_ITS | Continuity of Care Document ---
Author Organization [facility] Address [address] [place] [address]- Care Team Providers Care Spring Coverer Name Role Phone Jaun Eason DO Primary Care Physician En[place] [facility] [place] Date(s): 03/30/22 - 04/29/22 [facility] [address] [place] [id number] Allergies, Adverse Reactions, Alerts [...] 03/16/22 8:34:00 EST, Route to Pharmacy Electronically, [facility] 28012, 160, cm, 01/13/22 11:06:00 EDT, Height, 87.9, kg, 10/04/21 1:04:00 EDT, Dry Weight Start Date: 03/16/22 Stop Date: 04/15/22 Status: Ordered digoxin 0.125 mg oral tablet 125 mcg, 1, tablet, By Mouth, Daily, # 30 tablet, Refills 11, Tot. Refills 11, Maintenance, 02/14/22 7:26:00 EDT, Route to Pharmacy Electronically, [facility]/pharmacy #[id number], Partial fill upon patient request if the prescription is for a schedule II opioid d... Start Date: 02/14/22 Status: Ordered Durable Medical Equipment See Instructions, Maintenance, 03/23/21 10:38:00 EST, Supply Start Date: 03/23/21 Status: Ordered Entresto 49 mg-51 mg oral tablet 1 tablet, By Mouth, 2 times a day, # 60 tablet, 5 Refills, Maintenance, 11/11/21 7:16:00 EDT, Tablet, [facility]/pharmacy #0315, this is an increased [...] Maintenance,11/30/21 14:12:00 EDT, Route to Pharmacy Electronically, [facility]/pharmacy #0315, Partial fill upon patient [...] 11/30/21 14:13:00 EDT, Route to Pharmacy Electronically, [facility]/pharmacy #0315, Partial fill upon... Start Date: [...] 01/02/22 8:06:00 EDT, Route to Pharmacy Electronically, [facility] STORE 48166, 160, cm, 12/24/21 10:28:00 EDT, Height, 87.9, kg, 10/04/21 1:04:00 EDT, Dry Weight Start Date: 01/02/22 Status: Ordered torsemide 20 mg oral tablet 0.5 tablet = 10 mg, By Mouth, Daily, # 15 tablet, 3 Refills, Maintenance, 11/30/21 16:51:00 EDT, [facility]/pharmacy #0315, Partial fill upon patient request if the prescription is for a schedule II opioid drug., 160, cm, 11/30/21 14:40:00 EDT, Height, 87.9,... Start Date: 11/30/21 Status: Ordered torsemide 20 mg oral tablet 0.5 tablet, By Mouth, Daily, # 15 tablet, 3 Refills, Maintenance, 03/23/22 8:36:00 EST, [facility]ORE 36629, 160, cm, 01/13/22 11:06:00 EDT, Height, 87.9, [...] Active Family history of some sort of FACE BURLER cancer in her mother Confirmed Active GERD [...] Care Team Personnel Name: Jania Cadet Position: [facility] RN Member Role: Primary Care Nurse Name: Loretta Schwab RN Position: [facility] RN Member Role: Primary Care Nurse Name: Jania Richmond RN Position: S RN Member Role: Primary Care Nurse Name: Jaun Eason DO Position: [facility] Physician (General Medicine) Member Role: PCP Address: Address: [address] [place] [address]- Name: Junior Pearl RN Position: S RN Member Role: Primary Care Nurse Name: Elsa Tee RN Position: S RN Member Role: Primary Care Nurse Name: Tesha Matias NP Position: Reference Physician Member Role: Primary Care Nurse Address: Address: [address] [place] [address]- Name: Robert Cherry RN Position: S RN Member Role: Primary Care Nurse Name: Elina Greene LPN Position: [facility] RN Member Role: Primary Care Nurse Name: Lamar Talbert RN Position: [facility] RN Supv Member Role: Primary Care Nurse Name: Rafael Ho RN Position: [facility] ED RN W/OE and Tasks Member Role: Primary Care Nurse Name: Kayley Baker RN Position: S RN Member Role: Primary Care Nurse Name: Davon AGUAYO, Christine Whitten Position: [facility] RN Member Role: Primary Care Nurse Name: Farzana Perez Position: [facility] RN Member Role: Primary Care Nurse Care Team Related Persons Name: RONAK RIOS Address: [address] [place] [address] Name: KENA RIOS Address: [address] [place] [address] Name: RANDALL RIOS Address: [address] [place] [address]
--- OUTSIDE RECORDS SUMMARY | 2024-02-21 23:24 | XMS_ITS | Continuity of Care Document ---
Author Organization [facility] Address [address] [place] [address]- Care Team Providers Care Commercial Portfolio Manager Name Role Phone Arlin HENAO ([facility] [place]), Rinku Bonner Primary Care Ph ysician Encounter [facility] [id number] Date(s): 03/30/20 - 04/29/20 [facility] [address] [place] [id number] Attending Physician: Jerod Denton Admitting Physician: AdmJerod [...] to Pharmacy Electronically, [facility]/pharmacy #4829, this replaces bisoprololthat is unavailable please contact [...] 11 Refills, Maintenance, 05/17/19 16:00:00 EST, Tablet, [facility]/pharmacy #0315, 1 tablet [...]
--- OUTSIDE RECORDS SUMMARY | 2024-02-21 23:24 | XMS_ITS | Continuity of Care Document ---
Author Organization [facility] Address [address] [place] [phone]- Care Team Providers Care Heavy Truck Driver Name Role Phone EbenezerJaun victor DO Primary Care Physician [place] [facility] [place]20 - 01/10/21 [facility] [address] [place] [address]- [place] Allergies, Adverse Reactions, Alerts Substance Reaction [...] 10/23/20 12:37:00 EDT, Route to Pharmacy Electronically, [facility] [id number], 160, cm, 09/10/20 15:03:00 EDT, Height, 73.4, kg, 09/10/20 9:18:00 EDT, Dry... Start Date: 10/23/20 Status: Ordered digoxin 0.125 mg oral tablet 1, tablet, By Mouth, Daily, # 90 tablet, Refills 1, Route to Pharmacy Electronically, [facility], 160, cm, 12/10/20 9:01:00 EDT, Height, 73.4, kg, 09/10/20 9:18:00 EDT, Dry Weight Start Date: 12/13/20 Status: Ordered Entresto 49 mg-51 mg oral tablet 1 tablet, By Mouth, 2 times a day, # 60 tablet, 11 Refills, Maintenance, 07/01/20 11:14:00 EST, Tablet, [facility]/pharmacy #0315, 1 tablet By Mouth 2 [...] Family history of some sort of QUALITY HEAD cancer in her mother(Confirmed) Active GERD without [...]
--- OUTSIDE RECORDS SUMMARY | 2024-02-21 23:24 | XMS_ITS | Continuity of Care Document ---
Author Organization [facility] [place] Address [address] [place] [address]- Care Team Providers Care Bucket Operator Name Role Phone Arlin HENAO ([facility]), Rinku Bonner Primary Care Ph ysician Encounter [facility] Date(s): 07/01/20 - 07/31/20 [facility] [address], [place] [address] Attending Physician: Jerod Denton Admitting [...] 06/28/19 7:40:00 EST, Route to Pharmacy Electronically, [facility]/pharmacy #[id number], this replaces bisoprololthat is unavailable please contact office once back... Start Date: 06/28/19 Stop Date: 08/21/20 Status: Ordered digoxin 0.125 mg oral tablet 125 mcg, 1, tablet, By Mouth, Daily, # 90 tablet, Refills 1, Tot. Refills 1, Maintenance, 07/20/20 9:15:00 EDT, Route to Pharmacy Electronically, [facility]/pharmacy #0315, 160, cm, 05/27/20 9:55:00 EST, Height, 82.9, kg, 05/06/20 12:35:00 EST, Dry Weight Start Date: 07/20/20 Stop Date: 01/16/21 Status: Ordered Entresto 49 mg-51 mg oral tablet 1 tablet, By Mouth, 2 times a day, # 60 tablet, 11 Refills, Maintenance, 07/01/20 11:14:00 EST, Tablet, [facility]/pharmacy #0315, 1 [...]
--- OUTSIDE RECORDS SUMMARY | 2024-02-21 23:24 | XMS_ITS | Continuity of Care Document ---
Author Organization [facility] Address [address] [place] [address], [address] [place] [address]- Care Team Providers Care Graduate Rn Name Role Phone Jaun Eason DO Primary Care Physician [id number] Date[facility]s): 05/18/23 - 06/17/23 [facility] [facility] [address] [facility], [address] [place], [place] [address] Attending Physician: AdmJerod weber Admitting Physician: [...] 3 Refills, Maintenance, 08/01/22 8:02:00 EDT, [facility] STORE 33179, 160, cm, 05/06/22 10:53:00 EST, Height, 87.3, [...] 3 Refills, Maintenance, 04/10/20 13:57:00 EST, [facility]/pharmacy #0315, 158, cm, 02/24/20 9:14:00 [...] Active Family history of some sort of RECEIVING BARN CUSTODIAN cancer in her mother Confirmed Active GERD [...] Event Display: Ultrasound Pelvis, Non-BH Authored Date: Patient Care team information Care Team Personnel Name: Loretta Schwab RN Position: [facility] RN Member Role: Primary Care Nurse Name: Jaun Eason DO Position: [facility] Physician - Primary Care Member Role: PCP Address: Address: [address] [place] [id number]- Name: Elsa Tee RN Position: [facility] RN Member Role: Primary Care Nurse Name: Tesha Matias NP Position: Reference Physician Member Role: Primary Care Nurse Address: Address: [address] [place] [address]- Name: Robert Cherry RN Position: [facility] RN Member Role: Primary Care Nurse Name: Elina Greene LPN Position: [facility] RN Member Role: Primary Care Nurse Name: Lamar Talbert RN Position: [facility] RN Supv Member Role: Primary Care Nurse Name: Rafael Ho RN Position: [facility] ED RN W/OE and Tasks Member Role: Primary Care Nurse Name: Kayley Baker RN Position: [facility] RN Member Role: Primary Care Nurse Name: Christine Mays RN Position: [facility] RN Member Role: Primary Care Nurse Name: Farzana Perez RN Position: S RN Member Role: Primary Care Nurse Care Team Related Persons Name: RONAK RIOS Address: home [address] [place] [address] Name: KENA RIOS Address: [address] [place] [address] Name: RIOS RANDALL Address: [address] [place] [address]
--- OUTSIDE RECORDS SUMMARY | 2024-02-21 23:24 | XMS_ITS | Continuity of Care Document ---
Author Organization [facility] Address [address] [place] [address]- Care Team Providers Care Tow Picker Name Role Phone Jaun Eason DO Primary Care Physician [place] [facility] [place](s): 12/01/21 - 01/13/22 [facility] [address] [place] [address]- Encounter Diagnosis Chronic systolic heart failure(Discharge Diagnosis) - 12/14/21 Nonischemic dilated cardiomyopathy(Discharge Diagnosis) - 12/14/21 Obstructive sleep apnea(Discharge Diagnosis) - 12/14/21 Attending Physician: Jad Pinzon NP Admitting Physician: Jad Pinzon NP Referring Physician: Jaun Eason DO Allergies, Adverse [...] 11/08/21 13:29:00 EDT, Route to Pharmacy Electronically, [facility]/pharmacy #[id number], 160, cm, 11/01/21 14:10:00 EDT, Height, 87.9, kg, 10/04/21 1:04:00 EDT, Dry... Start Date: 11/08/21 Stop Date: 03/08/22 Status: Ordered digoxin 0.125 mg oral tablet 1, tablet, By Mouth, Daily, for 30 days, # 30 tablet, Refills 6, Tot. Refills 6, Physician Stop 02/07/22 10:21:00 EDT, 07/12/21 10:21:00 EDT, [facility], cm, 06/28/21 10:44:00 EST, Height, 85.9, kg, 03/30... Start Date: 07/12/21 Stop Date: 02/07/22 Status: Ordered Durable Medical Equipment See Instructions, Maintenance, 03/23/21 10:38:00 EST, Supply Start Date: 03/23/21 Status: Ordered Entresto 49 mg-51 mg oral tablet 1 tablet, By Mouth, 2 times a day, # 60 tablet, 5 Refills, Maintenance, 11/11/21 7:16:00 EDT, Tablet, [facility]/pharmacy #0315, this is an increased dose, [...] Maintenance,11/30/21 14:12:00 EDT, Route to Pharmacy Electronically, [facility]/pharmacy #0315, Partial fill upon patient request [...] 11/30/21 14:13:00 EDT, Route to Pharmacy Electronically, [facility]/pharmacy #0315, Partial fill upon... Start Date: 11/30/21 Stop Date: 05/29/22 Status: Ordered Provera 5 mg oral tablet 1 tablet = 5 mg, By Mouth, Daily, # 90 tablet, 4 Refills, Maintenance, 06/08/21 9:18:00 EST, Tablet, [facility]/pharmacy #0315, Partial fill upon patient request if the prescription is for a schedule II opioid drug., 160, cm, 06/08/21 8:40:00 EST, Height, 85... Start Date: 06/08/21 Status: Ordered spironolactone 25 mg oral tablet 1, tablet, By Mouth, Daily, # 90 tablet, Refills 1, Maintenance, 01/02/22 8:06:00 EDT, Route to Pharmacy Electronically, [facility]ORE 35172, 160, cm, 12/24/21 10:28:00 EDT, Height, 87.9, kg, 10/04/21 1:04:00 EDT, Dry Weight Start Date: 01/02/22 Status: Ordered torsemide 20 mg oral tablet 0.5 tablet = 10 mg, By Mouth, Daily, # 15 tablet, 3 Refills, Maintenance, 11/30/21 16:51:00 EDT, [facility]/pharmacy #0315, Partial fill upon patient request [...] Active Family history of some sort of CLAIMS ADJUSTER cancer in her mother(Confirmed) Active GERD without esophagitis(Confirmed) Active History of pneumonia(Confirmed) Active Hearing impaired(Confirmed) Active History of cardiomyopathy(Confirmed) Active Estrogen excess(Confirmed) Active 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 with comprehension(Confirmed) Active Cognitive impairment(Confirmed) Active Menopausal state since age 50(Confirmed) Active Obese class I(Confirmed) Active Obstructive sleep apnea(Confirmed) Active Postmenopausal bleeding(Confirmed) Active Treatment-emergent central s leep apnea(Confirmed) Active Dry mouth(Confirmed) Active Diagnosis Diagnosis Type Effective Dates Health Status Clinical Service Informant Chronic systolic heart failure Discharge Diagnosis 12/14/21 Nonischemic dilated cardiomyopathy Discharge Diagnosis 12/14/21 Obstructive sleep apnea Discharge Diagnosis 12/14/21 Social History Social History Type Response Smoking Status Former smoker; Other : Quit 2010; entered on: 03/02/16 Sex Care Team Personnel Name: Ebenezereaglefredmindi DO Jaun Address: [address] [place] [address] [address]
--- OUTSIDE RECORDS SUMMARY | 2024-02-21 23:24 | XMS_ITS | Continuity of Care Document ---
Author Organization [facility] Address [address] [place] [address]- Care Team Providers Care Studio Receptionist Name Role Phone Arlin HENAO ([facility]), Rinku Bonner Primary Care Ph ysician En[place] [facility] [place] Date(s): 07/08/20 - 08/07/20 [facility] [address] [place] [address]- Allergies, Adverse Reactions, Alerts Substance Reaction Severity [...] EST, Route to Pharmacy Electronically, [facility]/pharmacy #7418, this replaces bisoprololthat is unavailable please contact office once back... Start Date: 06/28/19 Stop Date: 08/21/20 Status: Ordered digoxin 0.125 mg oral tablet 125 mcg, 1, tablet, By Mouth, Daily, # 90 tablet, Refills 1, Tot. Refills 1, Maintenance, 07/20/20 9:15:00 EDT, Route to Pharmacy Electronically, [facility]/pharmacy #0315, 160, cm, 05/27/20 9:55:00 EST, Height, 82.9, kg, 05/06/20 12:35:00 EST, Dry Weight Start Date: 07/20/20 Stop Date: 01/16/21 Status: Ordered Entresto 49 mg-51 mg oral tablet 1 tablet, By Mouth, 2 times a day, # 60 tablet, 11 Refills, Maintenance, 07/01/20 11:14:00 EST, Tablet, [facility]/pharmacy #0315, 1 tablet By Mouth 2 times [...]
--- OUTSIDE RECORDS SUMMARY | 2024-02-21 23:24 | XMS_ITS | Continuity of Care Document ---
Author Organization [facility] ter Address [address] [place] [address]- Care Team Providers Care Front Desk Administrator Name Role Phone Jaun Eason DO Primary Care Physician Encounter [facility] [place] Date(s): 05/14/21 - 09/08/[address] [address] Attending Physician: Jaun Eason DO Admitting Physician: Jaun Eason DO Referring Physician: Jaun Eason DO Allergies, Adverse [...] 10/23/20 12:37:00 EDT, Route to Pharmacy Electronically, [facility] 69[facility], 160, cm, 09/10/20 15:03:00 EDT, Height, 73.4, [...] 04/02/21 14:34:00 EST, [facility] Partial fill upon patient request if the prescription is for a schedule II opioid dr... Start Date: 04/02/21 Stop Date: 06/01/21 Status: Ordered Entresto 49 mg-51 mg oral tablet 1 tablet, By Mouth, 2 times a day, # 60 tablet, 5 Refills, Maintenance, 07/05/21 10:48:00 EDT, Tablet, [facility]/pharmacy #0315, 1 tablet By Mouth [...] Maintenance,09/07/21 15:17:00 EDT, Route to Pharmacy Electronically, [facility]/pharmacy #0315, Partial fill upon patient request if the prescription is for a schedule II... Start Date: 09/07/21 Stop Date: 04/05/22 Status: Ordered Provera 5 mg oral tablet 1 tablet = 5 mg, By Mouth, Daily, # 90 tablet, 4 Refills, Maintenance, 06/08/21 9:18:00 EST, Tablet, [facility]/pharmacy #0315, Partial fill [...] Active Family history of some sort of VIDEO CONTROL OPERATOR cancer in her mother(Confirmed) Active GERD [...]
--- OUTSIDE RECORDS SUMMARY | 2024-02-21 23:24 | XMS_ITS | Continuity of Care Document ---
Author Organization [facility] Address [address] [place] [address]- Care Team Providers Care Sail Lay Out Worker Name Role Phone Jenaro LEEJaun Primary Care Physician Encounter [facility] [place] Date(s): 10/22/21 - 11/21/21 [facility] [address] [place] [address]- [place] Allergies, Adverse Reactions, Alerts Substance Reaction [...] 11/08/21 13:29:00 EDT, Route to Pharmacy Electronically, [facility]/pharmacy #0315, 160, cm, 11/01/21 14:10:00 EDT, Height, 87.9, kg, 10/04/21 1:04:00 EDT, Dry... Start Date: 11/08/21 Stop Date: 03/08/22 Status: Ordered digoxin 0.125 mg oral tablet 1, tablet, By Mouth, Daily, for 30 days, # 30 tablet, Refills 6, Tot. Refills 6, Physician Stop 02/07/22 10:21:00 EDT, 07/12/21 10:21:00 EDT, Route to Pharmacy Electronically, [facility]/pharmacy #0315, 160, cm, 06/28/21 10:44:00 EST, Height, 85.9, kg, 03/30... Start Date: 07/12/21 Stop Date: 02/07/22 Status: Ordered Durable Medical Equipment See Instructions, Maintenance, 03/23/21 10:38:00 EST, Supply Start Date: 03/23/21 Status: Ordered Entresto 49 mg-51 mg oral tablet 1 tablet, By Mouth, 2 times a day, # 60 tablet, 5 Refills, Maintenance, 11/11/21 7:16:00 EDT, Tablet, [facility]/pharmacy #0315, this is an increased dose, 1 [...] Maintenance,09/07/21 15:17:00 EDT, Route to Pharmacy Electronically, [facility]/pharmacy #0315, Partial fill upon patient request if the prescription is for a schedule II... Start Date: 09/07/21 Stop Date: 04/05/22 Status: Ordered Provera 5 mg oral tablet 1 tablet = 5 mg, By Mouth, Daily, # 90 tablet, 4 Refills, Maintenance, 06/08/21 9:18:00 EST, Tablet, [facility]/pharmacy #0315, Partial fill upon patient request if [...] Active Family history of some sort of EMULSIFICATION OPERATOR cancer in her mother(Confirmed) Active GERD [...]
--- OUTSIDE RECORDS SUMMARY | 2024-02-21 23:24 | XMS_ITS | Continuity of Care Document ---
Author Organization [facility] ter Address [address] [place] [address]- Care Team Providers Care Sound Mixer Name Role Phone Arlin HENAO ([facility]), Rinku Bonner Primary Care ysician [place] [facility] [place] - 05/02/[address] [address]- Attending Physician: Arlin HENAO ([facility])Rinku Admitting Physician: Arlin HENAO ([facility])Rinku Referring Physician: Arlin HENAO ([facility])Rinku Allergies, Adverse Reactions, Alerts Substance Reaction [...] 06/28/19 7:40:00 EST, Route to Pharmacy Electronically, [facility]/pharmacy #0430, this replaces bisoprololthat is unavailable please contact office once back... Start Date: 06/28/19 Stop Date: 08/21/20 Status: Ordered digoxin 0.125 mg oral tablet 125 mcg, 1, tablet, By Mouth, Daily, # 90 tablet, Refills 2, Tot. Refills 2, Maintenance, 07/15/19 8:57:00 EDT, Route to Pharmacy Electronically, [facility]/pharmacy #0315, 160, cm, 06/28/19 7:51:00 EST, Height, 87.4, kg, 02/11/19 2:25:00 EDT, Dry Weight Start Date: 07/15/19 Stop Date: 04/10/20 Status: Ordered Entresto 49 mg-51 mg oral tablet 1 tablet, By Mouth, 2 times a day, # 60 tablet, 11 Refills, Maintenance, 05/17/19 16:00:00 EST, Tablet, [facility]/pharmacy #0315, 1 tablet By [...]
--- OUTSIDE RECORDS SUMMARY | 2024-02-21 23:24 | XMS_ITS | Continuity of Care Document ---
Author Organization [facility] [employer] Address [address] [place] [address], 4t [place] [address]- Care Team Providers Care Tin Pourer Name Role Phone Jaun Eason DO Primary Care Physician [id number] Date(s): 11/27/20 - 03/27/21 [facility] [facility] [address] [facility], 4th Floor [place], [place] [address] Attending Physician: Harrison Shearer MD Allergies, Adverse [...] 10/23/20 12:37:00 EDT, Route to Pharmacy Electronically, [facility], 160, cm, 09/10/20 15:03:00 EDT, Height, 73.4, kg, 09/10/20 9:18:00 EDT, Dry... Start Date: 10/23/20 Status: Ordered digoxin 0.125 mg oral tablet 1, tablet, By Mouth, Daily, # 90 tablet, Refills 1, Route to Pharmacy Electronically, [facility] 62585, 160, cm, 12/10/20 9:01:00 EDT, Height, 73.4, kg, 09/10/20 9:18:00 EDT, Dry Weight Start Date: 12/13/20 Status: Ordered Durable Medical Equipment See Instructions, Maintenance, 03/23/21 10:38:00 EST, Supply Start Date: 03/23/21 Status: Ordered Entresto 49 mg-51 mg oral tablet 1 tablet, By Mouth, 2 times a day, # 60 tablet, 11 Refills, Maintenance, 07/01/20 11:14:00 EST, Tablet, [facility]/pharmacy #0315, 1 tablet By Mouth 2 times a day, 160, cm, 05/27/20 9:55:00 EST, Height, 82.9, kg, 05/06/20 12:35:00 EST, Dry Weight Start Date: 07/01/20 Status: Ordered Fish Oil 500 mg oral capsule 1 capsule = 500 mg, By Mouth, Daily, 0 Refills, Maintenance, 03/23/21 10:37:00 EST, Partial fill upon patient request if the prescription is for a schedule II opioid drug. Start Date: 03/23/21 Status: Ordered Omeprazole = 20 mg, By Mouth, Daily, 0 Refills, Maintenance, 03/23/21 10:37:00 EST, Partial fill upon patient request if the prescription is for a schedule II opioid drug. Start Date: 03/23/21 Status: Ordered Sertraline By Mouth, Daily, 0 [...] Active Family history of some sort of CHIEF CHEMIST cancer in her mother(Confirmed) Active GERD without [...]
--- OUTSIDE RECORDS SUMMARY | 2024-02-21 23:24 | XMS_ITS | Continuity of Care Document ---
Author Organization [facility] Address [address] [place] [address]- Care Team Providers Care House Officer Name Role Phone Arlin HENAO ([facility]), Rinku Bonner Primary Care Ph ysician Encounter [facility] [place] Date(s): 07/13/20 - 08/12/20 [facility] [address] [place] [address]- Allergies, Adverse Reactions, Alerts Substance Reaction Severity [...] 7:40:00 EST, Route to Pharmacy Electronically, [facility]/pharmacy #2945, this replaces bisoprololthat is unavailable please contact office once back... Start Date: 06/28/19 Stop Date: 08/21/20 Status: Ordered digoxin 0.125 mg oral tablet 125 mcg, 1, tablet, By Mouth, Daily, # 90 tablet, Refills 1, Tot. Refills 1, Maintenance, 07/20/20 9:15:00 EDT, Route to Pharmacy Electronically, [facility]/pharmacy #0315, 160, cm, 05/27/20 9:55:00 EST, Height, 82.9, kg, 05/06/20 12:35:00 EST, Dry Weight Start Date: 07/20/20 Stop Date: 01/16/21 Status: Ordered Entresto 49 mg-51 mg oral tablet 1 tablet, By Mouth, 2 times a day, # 60 tablet, 11 Refills, Maintenance, 07/01/20 11:14:00 EST, Tablet, [facility]/pharmacy #0315, 1 tablet By Mouth 2 [...]
--- OUTSIDE RECORDS SUMMARY | 2024-02-21 23:24 | XMS_ITS | Continuity of Care Document ---
Author Organization [facility] Address [address] [place] [address], 4t [place] [address]- Care Team Providers Care Blood Bank Attendant Name Role Phone Jaun Eason DO Primary Care Physician [place] [facility] [place]s): 09/10/20 - 10/24/20 [facility] [facility] [address] [facility], 4th Floor [place], [place] [address] Attending Physician: Harrison Shearer MD Allergies, Adverse [...] 10/23/20 12:37:00 EDT, Route to Pharmacy Electronically, [facility], 160, cm, 09/10/20 15:03:00 EDT, Height, 73.4, kg, 09/10/20 9:18:00 EDT, Dry... Start Date: 10/23/20 Status: Ordered digoxin 0.125 mg oral tablet 125 mcg, 1, tablet, By Mouth, Daily, # 90 tablet, Refills 1, Tot. Refills 1, Maintenance, 07/20/20 9:15:00 EDT, Route to Pharmacy Electronically, [facility]/pharmacy #0315, 160, cm, 05/27/20 9:55:00 EST, Height, 82.9, kg, 05/06/20 12:35:00 EST, Dry Weight Start Date: 07/20/20 Stop Date: 01/16/21 Status: Ordered Entresto 49 mg-51 mg oral tablet 1 tablet, By Mouth, 2 times a day, # 60 tablet, 11 Refills, Maintenance, 07/01/20 11:14:00 EST, Tablet, [facility]/pharmacy #0315, 1 [...] Active Family history of some sort of HORTICULTURAL SPECIALTY GROWER INSIDE cancer in her mother(Confirmed) Active GERD without [...]
--- OUTSIDE RECORDS SUMMARY | 2024-02-21 23:24 | XMS_ITS | Continuity of Care Document ---
Author Organization [facility] [place] Address [address] [place] [address]- Care Team Providers Care Size Stamper Name Role Phone Arlin HENAO ([facility]), Rinku Bonner Primary Care Ph ysician Encounter [facility] Date(s): 06/28/19 - 07/08/19 [facility] [address] [place] [address]- [facility] Attending Physician: Jerod Denton Admitting Physician: [...] 7:40:00 EST, Route to Pharmacy Electronically, [facility]/pharmacy #7050, this replaces bisoprololthat is unavailable please contact office once back... Start Date: 06/28/19 Stop Date: 08/21/20 Status: Ordered digoxin 0.125 mg oral tablet 125 mcg, 1, tablet, By Mouth, Daily, # 90 tablet, Refills 1, Tot. Refills 1, Maintenance, 09/27/18 10:11:07 EDT, Route to Pharmacy Electronically, [id number], [facility]/pharmacy #0315 Start Date: 09/27/18 Stop Date: 03/26/19 Status: Ordered Entresto 49 mg-51 mg oral tablet 1 tablet, By Mouth, 2 times a day, # 60 tablet, 11 Refills, Maintenance, 05/17/19 16:00:00 EST, Tablet, [facility]/pharmacy #0315, 1 tablet By Mouth [...]
--- OUTSIDE RECORDS SUMMARY | 2024-02-21 23:24 | XMS_ITS | Continuity of Care Document ---
Author Organization [facility] Address [address] [place] [address]- Care Team Providers Care Supervisor Commissary Production Name Role Phone Jaun Eason DO Primary Care Physician Encounter [facility] Date(s): 03/30/22 - 04/29/22 [facility] [address] [place] [id number] Allergies, Adverse Reactions, Alerts Substance [...] 03/16/22 8:34:00 EST, Route to Pharmacy Electronically, [facility] STORE [id number], 160, cm, 01/13/22 11:06:00 EDT, Height, 87.9, kg, 10/04/21 1:04:00 EDT, Dry Weight Start Date: 03/16/22 Stop Date: 04/15/22 Status: Ordered digoxin 0.125 mg oral tablet 125 mcg, 1, tablet, By Mouth, Daily, # 30 tablet, Refills 11, Tot. Refills 11, Maintenance, 02/14/22 7:26:00 EDT, Route to Pharmacy Electronically, [facility]/pharmacy #0315, Partial fill upon patient request if the prescription is for a schedule II opioid d... Start Date: 02/14/22 Status: Ordered Durable Medical Equipment See Instructions, Maintenance, 03/23/21 10:38:00 EST, Supply Start Date: 03/23/21 Status: Ordered Entresto 49 mg-51 mg oral tablet 1 tablet, By Mouth, 2 times a day, # 60 tablet, 5 Refills, Maintenance, 11/11/21 7:16:00 EDT, Tablet, [facility]/pharmacy #0315, this is an increased dose, 1 [...] Maintenance,11/30/21 14:12:00 EDT, Route to Pharmacy Electronically, [facility]/pharmacy #0315, Partial fill upon patient request if [...] 11/30/21 14:13:00 EDT, Route to Pharmacy Electronically, [facility]/pharmacy #0315, Partial fill upon... Start Date: 11/30/21 [...] 01/02/22 8:06:00 EDT, Route to Pharmacy Electronically, [facility] STORE 06988, 160, cm, 12/24/21 10:28:00 EDT, Height, 87.9, [...] tablet, 3 Refills, Maintenance, 03/23/22 8:36:00 EST, [facility] STORE 30042, 160, cm, 01/13/22 11:06:00 EDT, Height, 87.9, [...] Active Family history of some sort of URGENT CARE cancer in her mother Confirmed Active GERD [...] (General Medicine) Member Role: PCP Address: Address: [address] [place] [address]- Name: Junior Pearl RN Position: S RN Member Role: Primary Care Nurse Name: Elsa Tee RN Position: S RN Member Role: Primary Care Nurse Name: Tesha Matias NP Position: Reference Physician Member Role: Primary Care Nurse Address: Address: [address] [place] [address]- Name: Robert Cherry RN Position: S RN [...] Persons Name: RONAK RIOS Address: home [address] [place] [address] Name: KENA RIOS Address: [address] [place] [address] Name: RANDALL RIOS Address: [address] [place] [address]
--- OUTSIDE RECORDS SUMMARY | 2024-02-21 23:24 | XMS_ITS | Continuity of Care Document ---
Author Organization [facility] Address [address] [place] [address], 4t [place] [address]- Care Team Providers Care Right Of Way Clearer Name Role Phone Jaun Eason DO Primary Care Physician [id number] Date(s): 11/06/20 - 11/13/20 [facility] Madelineluba LiuCloudsnaps [facility] [address] [facility], 4th [address] [place], [place] [address] Attending Physician: Tee Martell MD Admitting Physician: Twyla Ashford MD Referring Physician: Jaun Eason DO Allergies, [...] 10/23/20 12:37:00 EDT, Route to Pharmacy Electronically, [facility] STORE 18016, 160, cm, 09/10/20 15:03:00 EDT, Height, 73.4, kg, 09/10/20 9:18:00 EDT, Dry... Start Date: 10/23/20 Status: Ordered digoxin 0.125 mg oral tablet 125 mcg, 1, tablet, By Mouth, Daily, # 90 tablet, Refills 1, Tot. Refills 1, Maintenance, 07/20/20 9:15:00 EDT, Route to Pharmacy Electronically, [facility]/pharmacy #0315, 160, cm, 05/27/20 9:55:00 EST, Height, 82.9, kg, 05/06/20 12:35:00 EST, Dry Weight Start Date: 07/20/20 Stop Date: 01/16/21 Status: Ordered Entresto 49 mg-51 mg oral tablet 1 tablet, By Mouth, 2 times a day, # 60 tablet, 11 Refills, Maintenance, 07/01/20 11:14:00 EST, Tablet, [facility]/pharmacy #0315, 1 tablet By Mouth 2 [...] Active Family history of some sort of LAWN SERVICE SUPERVISOR cancer in her mother(Confirmed) Active GERD without esophagitis(Confirmed) Active History of pneumonia(Confirmed) Active Hearing impaired(Confirmed) Active History of cardiomyopathy(Confirmed) Active 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 with comprehension(Confirmed) Active Menopausal state since age 50(Confirmed) Active Postmenopausal bleeding(Confirmed) Active Vital Signs Most recent to oldest [Reference Range]: 1 Height 160 cm (11/06/20 4:08 PM) Weight 85.83 kg (11/06/20 4:08 PM) Body Mass Index [18.5-24.99] 33.53 *>HHI* (11/06/20 4:08 PM) Blood Pressure [90-138/55-84 mm Hg] 94/7 0mm Hg (11/06/20 4:08 PM) Blood pressure sites Arm, right (11/06/20 4:08 PM) Weight Obtained Via Standing scale (11/06/20 4:08 PM) Social History Social History Type Response Smoking Status Former smoker; Other : Quit 2010; entered on: 03/02/16 Sex
--- OUTSIDE RECORDS SUMMARY | 2024-02-21 23:24 | XMS_ITS | Continuity of Care Document ---
Author Organization [facility] Address [address] [place] [address]- Care Team Providers Care Inspector Outside Steam Distribution Name Role Phone Arlin HENAO ([facility]), Rinku Bonner Primary Care Ph ysician Encounter [facility] Date(s): 06/11/19 - 08/16/19 [facility] [address] [place] [address]- [facility] Attending Physician: Luiz Christian MD Allergies, Adverse Reactions, Alerts Substance Reaction [...] 06/28/19 7:40:00 EST, Route to Pharmacy Electronically, [facility]/pharmacy #0315, this replaces bisoprololthat is unavailable please contact office once back... Start Date: 06/28/19 Stop Date: 08/21/20 Status: Ordered digoxin 0.125 mg oral tablet 125 mcg, 1, tablet, By Mouth, Daily, # 90 tablet, Refills 2, Tot. Refills 2, Maintenance, 07/15/19 8:57:00 EDT, Route to Pharmacy Electronically, [facility]/pharmacy #0319, 160, cm, 06/28/19 7:51:00 EST, Height, 87.4, [...]
--- OUTSIDE RECORDS SUMMARY | 2024-02-21 23:24 | XMS_ITS | Continuity of Care Document ---
Author Organization [facility] Address Unknown Care Team Providers Care Tub Operator Name Role Phone Jaun Eason DO Primary Care Physician Encounter [facility] Date(s): 02/01/21 - 03/03/21 [facility] Allergies, Adverse Reactions, Alerts Substance [...] 10/23/20 12:37:00 EDT, Route to Pharmacy Electronically, [facility] STORE 37966, 160, cm, 09/10/20 15:03:00 EDT, Height, 73.4, kg, 09/10/20 9:18:00 EDT, Dry... Start Date: 10/23/20 Status: Ordered digoxin 0.125 mg oral tablet 1, tablet, By Mouth, Daily, # 90 tablet, Refills 1, Route to Pharmacy Electronically, [facility] STORE 32769, 160, cm, 12/10/20 9:01:00 EDT, Height, 73.4, [...] Active Family history of some sort of CLEAT MAKER cancer in her mother(Confirmed) Active GERD without [...]
--- OUTSIDE RECORDS SUMMARY | 2024-02-21 23:24 | XMS_ITS | Continuity of Care Document ---
Author Organization [facility] Address [address] [place] [address]- Care Team Providers Care Breaker Layer Name Role Phone Ebenezerrubinamindi Jaun Primary Care Physician Encounter [facility] Date(s): 12/17/21 - 01/16/22 [facility] [address] [place] [address] [place] Allergies, Adverse Reactions, Alerts Substance Reaction [...] 11/08/21 13:29:00 EDT, Route to Pharmacy Electronically, [facility]/pharmacy #0315, 160, cm, 11/01/21 14:10:00 EDT, Height, 87.9, kg, 10/04/21 1:04:00 EDT, Dry... Start Date: 11/08/21 Stop Date: 03/08/22 Status: Ordered digoxin 0.125 mg oral tablet 1, tablet, By Mouth, Daily, for 30 days, # 30 tablet, Refills 6, Tot. Refills 6, Physician Stop 02/07/22 10:21:00 EDT, 07/12/21 10:21:00 EDT, Route to Pharmacy Electronically, [facility]/pharmacy #0315, 160, cm, 06/28/21 10:44:00 EST, Height, 85.9, kg, 03/30... Start Date: 07/12/21 Stop Date: 02/07/22 Status: Ordered Durable Medical Equipment See Instructions, Maintenance, 03/23/21 10:38:00 EST, Supply Start Date: 03/23/21 Status: Ordered Entresto 49 mg-51 mg oral tablet 1 tablet, By Mouth, 2 times a day, # 60 tablet, 5 Refills, Maintenance, 11/11/21 7:16:00 EDT, Tablet, [facility]/pharmacy #0315, this is an increased dose, 1 [...] Maintenance,11/30/21 14:12:00 EDT, Route to Pharmacy Electronically, [facility]/pharmacy #0315, Partial fill [...] 11/30/21 14:13:00 EDT, Route to Pharmacy Electronically, [facility]/pharmacy #0315, Partial fill upon... Start Date: 11/30/21 Stop Date: 05/29/22 Status: Ordered Provera 5 mg oral tablet 1 tablet = 5 mg, By Mouth, Daily, # 90 tablet, 4 Refills, Maintenance, 06/08/21 9:18:00 EST, Tablet, [facility]/pharmacy #0315, Partial fill upon patient request if the prescription is for a schedule II opioid drug., 160, cm, 06/08/21 8:40:00 EST, Height, 85... Start Date: 06/08/21 Status: Ordered spironolactone 25 mg oral tablet 1, tablet, By Mouth, Daily, # 90 tablet, Refills 1, Maintenance, 01/02/22 8:06:00 EDT, Route to Pharmacy Electronically, [facility] STORE 44888, 160, cm, 12/24/21 10:28:00 EDT, Height, 87.9, kg, 10/04/21 1:04:00 EDT, Dry Weight Start Date: 01/02/22 Status: Ordered torsemide 20 mg oral tablet 0.5 tablet = 10 mg, By Mouth, Daily, # 15 tablet, 3 Refills, Maintenance, 11/30/21 16:51:00 EDT, [facility]/pharmacy #0315, Partial [...] Refills, Maintenance, 04/10/20 13:57:00 EST, [facility]/pharmacy #0315, 158, cm, 02/24/20 9:14:00 EST, Height, 84, kg, 12/16/19 9:42:00 EDT, Dry Weight Start Date: 04/10/20 Stop Date: 04/05/21 Status: Ordered Problem List Condition Effective Dates Status Health Status Inform ant Last pap smear 09/10/20 ASCUS with negative HPV(Confirmed) Active Chronic systolic CHF (conges tive heart failure)(Confirmed) Active Essential tremor(Confirmed) Active History of multiple falls(Confirmed) Active Family history of some sort of TABLE GAMES SHIFT MANAGER cancer in her mother(Confirmed) Active GERD [...] Team Personnel Name: Jaun Eason DO Address: [address] [place] [address] [address] [place], [place] [address]
--- OUTSIDE RECORDS SUMMARY | 2024-02-21 23:24 | XMS_ITS | Continuity of Care Document ---
Author Organization [facility] Address [address] [place] [address]- Care Team Providers Care Command And Control Systems Integrator Name Role Phone EbenezerJaun victor DO Primary Care Physician Encounter [facility] Date(s): 12/14/20 - 01/13/21 [facility] [address] [place] [address]- [place] Allergies, Adverse Reactions, Alerts Substance Reaction [...] 10/23/20 12:37:00 EDT, Route to Pharmacy Electronically, [facility] STORE 87294, 160, cm, 09/10/20 15:03:00 EDT, Height, 73.4, kg, 09/10/20 9:18:00 EDT, Dry... Start Date: 10/23/20 Status: Ordered digoxin 0.125 mg oral tablet 1, tablet, By Mouth, Daily, # 90 tablet, Refills 1, Route to Pharmacy Electronically, [facility] 82089, 160, cm, 12/10/20 9:01:00 EDT, Height, 73.4, [...] Active Family history of some sort of PRECISION HONING MACHINE OPERATOR cancer in her mother(Confirmed) Active [...]
--- OUTSIDE RECORDS SUMMARY | 2024-02-21 23:24 | XMS_ITS | Continuity of Care Document ---
Author Organization [facility] Address [address] [place] [address]- Care Team Providers Care Hand Stripper Name Role Phone Jaun Eason DO Primary Care Physician Encounter [facility] Date(s): 12/02/20 - 01/01/[address] [address]- Allergies, Adverse Reactions, Alerts Substance Reaction Severity [...] 10/23/20 12:37:00 EDT, Route to Pharmacy Electronically, [facility] STORE 95202, 160, cm, 09/10/20 15:03:00 EDT, Height, 73.4, kg, 09/10/20 9:18:00 EDT, Dry... Start Date: 10/23/20 Status: Ordered digoxin 0.125 mg oral tablet 1, tablet, By Mouth, Daily, # 90 tablet, Refills 1, Route to Pharmacy Electronically, [facility], 160, cm, 12/10/20 9:01:00 EDT, Height, 73.4, kg, 09/10/20 9:18:00 EDT, Dry Weight Start Date: 12/13/20 Status: Ordered Entresto 49 mg-51 mg oral tablet 1 tablet, By Mouth, 2 times a day, # 60 tablet, 11 Refills, Maintenance, 07/01/20 11:14:00 EST, Tablet, [facility]/pharmacy #0315, 1 tablet By Mouth [...] Active Family history of some sort of COUNTY ATTORNEY cancer in her mother(Confirmed) Active GERD without [...]
--- OUTSIDE RECORDS SUMMARY | 2024-02-21 23:24 | XMS_ITS | Continuity of Care Document ---
Author Organization [facility] Address [address] [place] [address], [address] [place] [address]- Care Team Providers Care Chip Unloader Name Role Phone Jaun Eason DO Primary Care Physician Encounter [facility] [id number] Date(s): 08/16/23 - 12/14/23 [facility]el[facility]Inst[facility] [address] [facility], [address] [place], [place] [address] Attending Physician: Not on Staff, Attending MD [...] 11:35:00 EST, Route to Pharmacy Electronically, [facility], 160, cm, 04/12/23 9:49:00 [...] Active Family history of some sort of HOME ADMINISTRATOR cancer in her mother Confirmed Active GERD [...] S Outreach Member Role: PCP Address: Address: [address] [place] [address] [address] [place], [place] [address] Name: Tesha Matias NP Position: Reference Physician Member Role: Primary Care Nurse Address: Address: [facility] [address]- Name: Robert Cherry RN Position: [facility] RN Member Role: Primary Care Nurse Name: Elina Greene LPN Position: S RN Member Role: Primary Care Nurse Name: Rafael Ho RN Position: [facility] ED RN W/OE and Tasks Member Role: Primary Care Nurse Name: Kayley Baker RN Position: S RN Member Role: Primary Care Nurse Name: Davon AGUAYO, Christine Whitten Position: S RN Member Role: Primary Care Nurse Name: Farzana Perez RN Position: [facility] RN Member Role: Primary Care Nurse Care Team Related Persons Name: RONAK RIOS Address: home [address] [place] [address] Name: KENA RIOS Address: [address] [place] [address] Name: RANDALL RIOS Address: [address] [place] [address]
--- OUTSIDE RECORDS SUMMARY | 2024-02-21 23:24 | XMS_ITS | Continuity of Care Document ---
Author Organization [facility] Address [address] [place] [address]- Care Team Providers Care Fiberglass Boat Builder Name Role Phone EbenezereagleJaun piña DO Primary Care Physician Encounter [facility] Date(s): 06/28/22 - 07/28/22 [facility] [address] [place] [address]- [place] Allergies, Adverse Reactions, Alerts Substance Reaction [...] 10:45:00 EST, Route to Pharmacy Electronically, [facility]/pharmacy #0315, 160, cm, 05/06/22 10:53:00 EST, Height, 87.3, kg, 03/27/22 1:36:00 EST, Dry Weight Start Date: 06/28/22 Stop Date: 10/26/22 Status: Ordered Durable Medical Equipment See Instructions, Maintenance, 03/23/21 10:38:00 EST, Supply Start Date: 03/23/21 Status: Ordered Entresto 49 mg-51 mg oral tablet 1 tablet, By Mouth, 2 times a day, # 28 tablet, 0 Refills, Maintenance, 07/15/22 8:37:00 EDT, [facility]/pharmacy #0315, 1 tablet By Mouth 2 times [...] Refills, Maintenance, 06/07/22 7:57:00 EST, [facility], 160, cm, 05/06/22 10:53:00 EST, Height, 87.3, [...] 15:09:00 EST, Route to Pharmacy Electronically, [facility]/pharmacy #0315, Partial fill upon patient request if [...] 15:09:00 EST, Route to Pharmacy Electronically, [facility]/pharmacy #0315, Partial fill upon... Start Date: 06/28/22 Stop Date: 12/25/22 Status: Ordered spironolactone 25 mg oral tablet 1, tablet, By Mouth, Daily, # 90 tablet, Refills 1, Maintenance, 01/02/22 8:06:00 EDT, Route to Pharmacy Electronically, [facility], 160, cm, 12/24/21 10:28:00 EDT, Height, 87.9, kg, 10/04/21 1:04:00 EDT, Dry Weight Start Date: 01/02/22 Status: Ordered torsemide 20 mg oral tablet 0.5 tablet = 10 mg, By Mouth, Daily, # 15 tablet, 3 Refills, Maintenance, 11/30/21 16:51:00 EDT, [facility]/pharmacy #0315, Partial fill upon patient request if the prescription is for a schedule II opioid drug., 160, cm, 11/30/21 14:40:00 EDT, Height, 87.9,... Start Date: 11/30/21 Status: Ordered torsemide 20 mg oral tablet 0.5 tablet, By Mouth, Daily, # 15 tablet, 3 Refills, Maintenance, 03/23/22 8:36:00 EST, [facility], 160, cm, 01/13/22 11:06:00 EDT, Height, 87.9, [...] 3 Refills, Maintenance, 04/10/20 13:57:00 EST, [facility]/pharmacy #0315, 158, cm, 02/24/20 9:14:00 EST, Height, [...] Active Family history of some sort of ROAD MARKER cancer in her mother Confirmed Active GERD [...] Team Personnel Name: Loretta Schwab RN Position: [facility] RN Member Role: Primary Care Nurse Name: Jaun Eason DO Position: [facility] Physician (General Medicine) Member Role: PCP Address: Address: [address] [place], [place] [address] [place], [place] [address] Name: Elsa Tee RN Position: [facility] RN Member Role: Primary Care Nurse Name: Tesha Matias NP Position: Reference Physician Member Role: Primary Care Nurse Address: Address: [address] [place] [address]- Name: Robert Cherry RN Position: [facility] RN Member Role: Primary Care Nurse Name: Elina Greene LPN Position: [facility] RN Member Role: Primary Care Nurse Name: Lamar Tlabert RN Position: [facility] RN Supv Member Role: Primary Care Nurse Name: Rafael Ho RN Position: [facility] ED RN W/OE and Tasks Member Role: Primary Care Nurse Name: Kayley Baker RN Position: [facility] RN Member Role: Primary Care Nurse Name: Christine Mays RN Position: [facility] RN Member Role: Primary Care Nurse Name: Farzana Perez RN Position: [facility] RN Member Role: Primary Care Nurse Care Team Related Persons Name: RONAK RIOS Address: [address] [place] [address] Name: KENA RIOS Address: [address] [place] [address] Name: RANDALL RIOS Address: [address] [place] [address]
--- OUTSIDE RECORDS SUMMARY | 2024-02-21 23:24 | XMS_ITS | Continuity of Care Document ---
Author Organization [facility] Address [address] [facility], [address]t [place] [address]- Care Team Providers Care Adobe Flex Developer Name Role Phone Ebenezervalente Jaun LEE Primary Care Physician [place] [facility] Date(s): 05/28/21 - 06/27/21 [facility] [address] [facility], 4th [place] [address]- Allergies, Adverse Reactions, Alerts Substance Reaction Severity [...] 10/23/20 12:37:00 EDT, Route to Pharmacy Electronically, [facility] 12541, 160, cm, 09/10/20 15:03:00 EDT, Height, 73.4, kg, 09/10/20 9:18:00 EDT, Dry... Start Date: 10/23/20 Status: Ordered digoxin 0.125 mg oral tablet 1, tablet, By Mouth, Daily, # 90 tablet, Refills 1, Route to Pharmacy Electronically, [facility] STORE 72281, 160, cm, 12/10/20 9:01:00 EDT, Height, 73.4, [...] 14:34:00 EST, Route to Pharmacy Electronically, [facility]/pharmacy #0315, Partial fill upon patient request if [...] Replace Required Details, Route to Pharmacy Electronically, [facility]/pharmacy #0315, Partial fill upon... Start Date: 06/03/21 Status: Ordered Provera 5 mg oral tablet 1 tablet = 5 mg, By Mouth, Daily, # 90 tablet, 4 Refills, Maintenance, 06/08/21 9:18:00 EST, Tablet, [facility]/pharmacy #0315, Partial fill upon patient request if [...] Active Family history of some sort of HYDRAULIC MINER cancer in her mother(Confirmed) Active GERD without [...]
--- OUTSIDE RECORDS SUMMARY | 2024-02-21 23:24 | XMS_ITS | Continuity of Care Document ---
Author Organization [facility] Address [address] [place] [address]- Care Team Providers Care Piece Presser Name Role Phone Jenaro Jaun Primary Care Physician [place] [facility] [place]s): 11/01/23 - 12/01/23 [facility] [address] [place] [address]- Attending Physician: Jerod Denton Admitting Physician: AdmtrJerod [...] tablet, Refills 11, Tot. Refills 11, Maintenance, 12/22/23 11:35:00 EST, Route to Pharmacy Electronically, [facility] [...] Active Family history of some sort of SLATE PICKER cancer in her mother Confirmed Active GERD [...] Event Display: Cardiology Note Office Authored Date: [id number] Patient: KENA RIOS Age: 50 years Sex: [...] S Outreach Member Role: PCP Address: Address: [address] [place] [address] [address] [place], [place] [address] Name: Florencio DIRECTOR RISKTesha Position: Reference Physician Member Role: Primary Care Nurse Address: Address: [address] [place] [address] Name: Robert Cherry RN Position: S RN Member Role: Primary Care Nurse Name: Elina Greene LPN Position: S RN Member Role: Primary Care Nurse Name: Rafael Ho RN Position: [facility] ED RN W/OE and Tasks Member Role: Primary Care Nurse Name: Kayley Baker RN Position: S RN Member Role: Primary Care Nurse Name: Christine Mays RN Position: [facility] RN Member Role: Primary Care Nurse Name: Farzana Perez RN Position: [facility] RN Member Role: Primary Care Nurse Care Team Related Persons Name: RONAK RIOS Address: [address] [place] [address] Name: KENA RIOS Address: [address] [place] [address] Name: RANDALL RIOS Address: [address] [place] [address]
--- OUTSIDE RECORDS SUMMARY | 2024-02-21 23:24 | XMS_ITS | Continuity of Care Document ---
Author Organization [facility] Goncalves n[facility] Address [address], [address] [place] [address]- Care Team Providers Care Bronze Plater Name Role Phone Jaun Eason DO Primary Care Phys[id number] Date(s): [facility]/11[facility]22 - 11/18/22 [facility] Madelineluba LiuArg[facility]ightss [facility] [address] [place], [place] [address] Attending Physician: Tee Martell MD Referring Physician: Jaun Eason DO Allergies, [...] tablet, 0 Refills, Maintenance, 07/29/22 9:15:00 EDT, [facility]/pharmacy #[id number], Partial fill upon patient request [...] Refills, Maintenance, 06/07/22 7:57:00 EST, [id number], 160, cm, 05/06/22 10:53:00 EST, Height, 87.3, kg, 03/27/22 1:36:00 EST, Dry Weight Start Date: 06/07/22 Status: Ordered primidone 250 mg oral tablet [...] 06/28/22 15:09:00 EST, Route to Pharmacy Electronically, [facility]/pharmacy #[id number], Partial fill upon patient request [...] Refills, Maintenance, 08/01/22 8:02:00 EDT, [id number], 160, cm, 05/06/22 10:53:00 EST, Height, 87.3, [...] Active Family history of some sort of [employer] cancer in her mother Confirmed Active GERD [...] oldest [Reference Range]: 1 Height 160 cm (11/11/22 9:32 AM) Weight 89.9 kg (11/11/22 9:32 AM) Pulse Rate [55-90 bpm] 73 bpm (11/11/22 9:32 AM) Body Mass Index [18.5-24.99 kg/m2] 35.12 kg/m2 *>HHI* (11/11/22 9:32 AM) Blood Pressure [90-138/55-84 mm Hg] 105/ 57mm Hg (11/11/22 9:32 AM) Blood pressure sites Arm, right (11/11/22 9:32 AM) Dry Weight 89.9 kg (11/11/22 9:32 AM) Weight Obtained Via Standing scale (11/11/22 9:32 AM) Dry Weight Obtained Via Standing scale (11/11/22 9:32 AM) Social History Social History Type Response Smoking Status Former smoker; Other : Quit 2010; entered on: 03/02/16 Sex Patient Care team information Care Team Personnel Name: Loretta Schwab RN Position: S RN Member Role: Primary Care Nurse Name: Jaun Eason DO Position: [facility] Physician - Primary Care Member Role: PCP Address: Address: [address] [place] [id number] Name: Elsa Tee RN Position: S RN Member Role: Primary Care Nurse Name: Tesha Matias NP Position: Reference Physician Member Role: Primary Care Nurse Address: Address: [address] [place] [id number] Name: Robert Cherry RN Position: [facility] RN Member Role: Primary Care Nurse Name: Elina Greene LPN Position: S RN Member Role: Primary Care Nurse Name: Lamar Talbert RN Position: [facility] RN Supv Member Role: Primary Care Nurse Name: Rafael Ho RN Position: [facility] BIGG RN W/OE and Tasks Member Role: Primary Care Nurse Name: Kayley Baker RN Position: S RN Member Role: Primary Care Nurse Name: Christine Mays RN Position: S RN Member Role: Primary Care Nurse Name: Farzana Perez RN Position: S RN Member Role: Primary Care Nurse Care Team Related Persons Name: RONAK RIOS Address: home [address] [place] [address] Name: KENA RIOS Address: home [address] [place] [id number] Name: RANDALL RIOS Address: [address] [address]
[2024-02-21 23:27] LABS: Anion Gap 12 (12-20); Blood Urea Nitrogen 20 mg/dL (9-16); Calcium 8.6 mg/dL (8.4-10.2); Carbon Dioxide 26 mmol/L (22-29); Chloride 107 mmol/L (96-108); Creatinine Clr Calc Pharmacy 87.7; Estimated Glomerular Filt Rate > 60; Glucose Random 87 mg/dL (60-115); Potassium 3.9 mmol/L (3.3-5.1); Sodium 141 mmol/L (135-145)
[2024-02-21 23:50] LABS: Influenza A PCR NEGATIVE (Negative); Influenza B PCR NEGATIVE (Negative); Resp Syncy Virus RNA Qual PCR NEGATIVE (Negative); SARS COV2 PCR INHOUSE NEGATIVE (Negative)
--- NOTE | 2024-02-22 01:12 | ED.GENADULT ---
HPI - General Adult General Chief complaint: General Medical Stated complaint: Pain in lower back Time Seen by Provider: 02/22/24 01:11 Source: patient and family Mode of arrival: ambulatory Limitations: no limitations History of Present Illness ED Provider: Dr. Adair HPI narrative: Patient is 58 yo female with history of depression, alcoholism, who presents complaining of back pain with movement. No dysuria or hematuria. She denies trauma. Onset (ago): day(s) Related Data Home Medications ?Medication ?Instructions ?Recorded ?Confirmed aspirin 81 mg capsule 81 mg PO DAILY 06/02/21 06/02/21 carvedilol 6.25 mg tablet 6.25 mg PO BID 06/02/21 06/02/21 cholecalciferol (vitamin D3) 50 50 mcg PO DAILY 06/02/21 06/02/21 mcg (2,000 unit) capsule (Vitamin D3) digoxin 125 mcg (0.125 mg) tablet 125 mcg PO DAILY 06/02/21 06/02/21 sacubitril 49 mg-valsartan 51 mg 1 tab PO BID 06/02/21 06/02/21 tablet (Entresto) spironolactone 25 mg tablet 25 mg PO DAILY 06/02/21 06/02/21 venlafaxine 150 mg 150 mg PO DAILY 06/02/21 06/02/21 capsule,extended release 24 hr (Effexor XR) Previous Rx's ?Medication ?Instructions ?Recorded cyclobenzaprine 10 mg tablet 10 mg PO TID #10 tabs 02/22/24 naproxen 500 mg tablet (Naprosyn) 500 mg PO BID #20 tabs 02/22/24 Allergies Allergy/AdvReac Type Severity Reaction Status Date / Time No Known Allergies Allergy Verified 02/21/24 22:54 Review of Systems Review of Systems: Yes all other systems are reviewed and are negative Neurologic: Denies Sensory deficit (Neuro) PMFSH Past Medical History Medical History Cardiomyopathy Sleep apnea GERD (gastroesophageal reflux disease) Hearing impaired Major depressive disorder, recurrent severe without psychotic features MDD (major depressive disorder), recurrent episode, moderate Essential tremor Congestive heart failure (CHF) Brain injury Social History Social History Household Members: Family Household Members Other:: N/A Alcohol intake: current Alcohol intake frequency: a few times a month Alcohol type: wine Patient Tobacco Use Status: Never used Tobacco Smoked in Last 30 Days: No Use of substances other than those prescribed or required for medical reasons: No Advance Directives: No Advance Directives Information Provided: No Do you have a plan to hurt others: No Plan Patient : No Physical Exam ED Vital Signs: Vital Signs - 24 hr 02/21/24 22:51 02/22/24 02:05 02/22/24 02:07 Temperature 97.8 F 97.8 F 97.5 F Pulse Rate 71 71 67 Respiratory Rate 18 18 18 Blood Pressure 141/73 H 141/73 H 117/48 L Pulse Oximetry 98 97 Oxygen Delivery Method Room Air Room Air BMI result Body Mass Index 35.8 Const Other: female looking older than stated age Nutritional Appearance: average body habitus Orientation/consciousness: oriented to person and patient oriented x3 Limitations: no limitations HENMT Head: Yes normal to inspection Ears: external ears normal General nose exam: Normal external nose present Mouth: Normal oral and palatal mucosa present and oropharynx normal Throat: Yes posterior oropharynx normal Eyes General: appearance normal, both eyes and all related structures Neck Neck: Yes normal visual inspection Chest Chest palpation & inspection: normal inspection of the chest Resp Auscultation: clear to auscultation bilaterally Cardio Jugular venous distension: no JVD Rate: regular rate Rhythm: regular rhythm Heart sounds: S1 normal heart sound present and S2 normal heart sound present GI Inspection: Yes normal to inspection Palpation (GI): Soft to palpation, nontender and No hepatosplenomegaly present Auscultation: normal bowel sounds Back/Spine/Pelvis Other: lumbar tenderness with left SI joint pain, and sciatica pain Skin General skin exam: no rashes or lesions noted Neuro General: oriented to person and patient oriented x3 Cranial nerves: Yes CN's II-XII intact bilaterally Motor exam (neuro): 5/5 motor strength present throughout Sensory Exam: No Sensory deficit (Neuro) Extrem General: Yes normal to inspection Psych Appearance: grossly normal Course Reevaluation(s) Reevaluation #1: patient improved after antiinflammatories, and muscle relaxer. Patient xrays show djd. Will dc home Time: 02:48 Medications Administered Discontinued Medications Generic Name Dose Route Start Last Admin Trade Name Freq PRN Reason Stop Dose Admin Cyclobenzaprine HCl 10 mg 02/22/24 01:19 02/22/24 01:33 Cyclobenzaprine Hcl 10 Mg Tablet PO 02/22/24 01:20 10 mg ONCE ONE Administration Ketorolac Tromethamine 60 mg 02/22/24 01:19 02/22/24 01:34 Ketorolac Tromethamine 60 Mg/2 Ml Vial IM 02/22/24 01:20 60 mg ONCE ONE Administration Medical Decision Making Differential Diagnosis Differential Diagnoses: The differential diagnosis associated with the presentation includes (sciatica, radicular back pain, UTI) Admission/Observation Consideration of admission/observation: Escalation of care including admission/observation considered (upon arrival patient considered for admission) Lab Data 02/21/24 23:06 02/21/24 23:06 Labs: Lab Results 02/21/24 Range/Units 23:06 WBC 7.7 (4.8-10.8) X10*3/uL RBC 4.21 (4.20-5.50) X10*6/uL Hgb 12.0 (12.0-16.0) g/dl Hct 37.0 (37.0-47.0) % MCV 87.9 (80.0-98.0) fL MCH 28.5 (27.0-33.0) pg MCHC 32.4 (31.0-35.0) g/dl RDW 14.6 (11.0-16.0) % Plt Count 213 (160-400) X10*3/uL MPV 9.9 (9.4-12.3) fL Immature Gran % (Auto) 0.3 (0.0-0.4) % Neut % (Auto) 70.4 (45-73) % Lymph % (Auto) 16.9 L (20-40) % [place] % (Auto) 9.7 (2-11) % Eos % (Auto) 2.3 (0-4) % Baso % (Auto) 0.4 (0-2) % Lymph # (Auto) 1.3 (1.2-4.9) X10*3/uL [place] # (Auto) 0.8 (0.1-1.2) X10*3/uL Eos # (Auto) 0.2 (0.0-0.4) X10*3/uL Baso # (Auto) 0.0 (0.0-0.2) X10*3/uL Abs Immat Gran (auto) 0.02 (0.00-0.03) X10*3/uL Absolute Neuts (auto) 5.5 (2.0-8.3) x10*3/uL Absolute Nucleated RBC 0.000 (0.0-0.012) X10*3/uL Nucleated RBC % (auto) 0.0 (0.0-0.2) /100WBC Sodium 141 (135-145) mmol/L Potassium 3.9 (3.3-5.1) mmol/L Chloride 107 (96-108) mmol/L Carbon Dioxide 26 (22-29) mmol/L Anion Gap 12 (12-20) BUN 20 H (9-16) mg/dL Creatinine 0.76 (0.5-1.4) mg/dL Estim Creat Clear Calc 87.7 Estimated GFR > 60 Random Glucose 87 (60-115) mg/dL Calcium 8.6 (8.4-10.2) mg/dL Urine Color Yellow Urine Appearance Clear Urine pH 5.5 (5.0-9.0) Ur Specific [place] >= 1.030 H (1.005-1.025) Urine Protein Negative (Neg-Trace) mg/dL Urine Glucose (UA) Negative (Negative) mg/dL Urine Ketones Trace (Negative) mg/dL Urine Blood Negative (Negative) Urine Nitrite Negative (Negative) Ur Leukocyte Esterase Small (1+) H (Negative) Urine RBC 0-2 (0-2) /HPF Urine WBC 11-20 H (0-5) /HPF Ur Squamous Epith Cells 6-10 (0-2) /HPF Urine Bacteria None Seen (None Seen) Hyaline Casts 0-2 (0-2) /LPF Influenza Type A (PCR) NEGATIVE (Negative) Influenza Type B (PCR) NEGATIVE (Negative) RSV RNA Qual (PCR) NEGATIVE (Negative) SARS-CoV-2 RNA (RT-PCR) NEGATIVE (Negative) Independent Interpretation I performed an independent interpretation of an: Plain X-Ray (Lumbar: djd) Independent Historian Clinical information obtained from an independent historian. History obtained from or confirmed by: Other (daughter) Prescription Management I considered prescription management with: Antibiotic (no evidence of UTI) Chronic Conditions Patient?s care impacted by: Other (psychiatric disease) Social Determinants Patient?s care significantly limited by Social Determinants of Health including: Alcoholism and drug addiction in family Discharge Plan Discharge Clinical Impression: Acute radicular low back pain, Sciatica Patient Disposition: Home, Self-Care Instructions: Acute Low Back Pain (ED), Lumbar Radiculopathy (ED) Prescriptions: New cyclobenzaprine 10 mg tablet 10 mg PO TID Qty: 10 0RF naproxen [Naprosyn] 500 mg tablet 500 mg PO BID Qty: 20 0RF No Action carvedilol 6.25 mg Tablet 6.25 mg PO BID Rx Instructions: must administer with a meal/food venlafaxine [Effexor XR] 150 mg Capsule,Extended Release 24hr 150 mg PO DAILY spironolactone 25 mg Tablet 25 mg PO DAILY digoxin 125 mcg (0.125 mg) Tablet 125 mcg PO DAILY cholecalciferol (vitamin D3) [Vitamin D3] 50 mcg (2,000 unit) Capsule 50 mcg PO DAILY Entresto 49-51 mg Tablet 1 tab PO BID aspirin 81 mg Capsule 81 mg PO DAILY Referrals: Jaun Eason DO, MD [Primary Care Provider] - 5 days Print Language: Mozambican
[2024-02-22] MEDS: Cyclobenzaprine HCl 10 MG TABLET PO (01:33)
[2024-02-22] MEDS: Ketorolac Tromethamine 60 MG/2 ML VIAL IM (01:34)
[2024-02-22 02:05] VITALS: BP 141/73; PULSE 71; RESP 18; TEMP 36.6
[2024-02-22 02:07] VITALS: BP 117/48; PULSE 67; RESP 18; TEMP 36.4; O2SAT 97
[2024-02-22 02:53] VITALS: BP 117/48; PULSE 67; RESP 18; TEMP 36.4; O2SAT 97
== END 2024-02-22 02:57 | disposition home or self-care (01) ==
PROVIDERS: Emergency Provider Emergency Medicine; PCP Internal Medicine
DX: M54.17 Radiculopathy, lumbosacral region (principal); M54.30 Sciatica, unspecified side; M54.9 Dorsalgia, unspecified; K21.9 Gastro-esophageal reflux disease without esophagitis; I50.9 Heart failure, unspecified; Z79.899 Other long term (current) drug therapy; Z03.818 Encounter for observation for suspected exposure to other biological agents ruled out
CPT/HCPCS: 0241U; 72100; 80048; 81001; 85025; 87086; 96372; 99284; J1885